=== PATIENT | female | born 1940 | race Caucasian/White ===

== ENCOUNTER → 2017-03-16 | Outpatient (CLI) | payer MEDICARE, OTHER ==
[~2017-03-16] MED LIST: AMLO10TA82 PO; ASP81TEC PO; LOSA100T7 PO; METO100T5 PO; METO10TA3 PO; MULT-608 PO; SIMV80TA3 PO; SODIUM BICARB PO; SPIR25TA3 PO; THYR60TA4 PO
--- NOTE | 2017-03-16 20:03 | Diagnostic Imaging Report ---
Bilateral screening mammogram 2D views with tomosynthesis The current study was also evaluated with a Computer Aided Detection (CAD) system. INDICATION: Screening. No current complaints stated on the questionnaire. COMPARISON: 03/04/2016. FINDINGS: The breasts are composed of scattered fibroglandular densities. Scattered benign-appearing calcifications and vascular calcifications are seen. Allowing for technique and positional differences, no suspicious change is seen. IMPRESSION: No significant change. ACR BI-RADS Category 2: Benign findings. Result letter will be mailed to the patient. Note: At least 10% of breast cancer is not imaged by mammography. Dictated by: Dictated on workstation # [id number]
== END ==
LOC: RAD 09:20
DX: Z12.31 Encounter for screening mammogram for malignant neoplasm of breast (principal)
CPT/HCPCS: 77067

== ENCOUNTER → 2017-10-19 | Outpatient (CLI) | payer MEDICARE, OTHER ==
[~2017-10-19] MED LIST changes: +ALLO100T PO; +AMLO10TA2 PO; +ASPI-999 PO; +CHOL500050 PO; +DEXL60CA PO; +DOXA2TAB2 PO; +HYDR-34 PO; +LOSA100T28 PO; +METO-370 PO; +MULT1TAB69 PO; +ROSU20TA PO; +SODI650T PO; +SUCR1TAB PO; +THYR90TA15 PO
--- NOTE | 2017-10-19 08:39 | Diagnostic Imaging Report ---
PROCEDURE: US Gallbladder. TECHNIQUE: Multiple Real-time grayscale images were obtained over the right upper quadrant in various projections. INDICATION: Abdominal pain. FINDINGS: The liver is normal in size without focal lesions. The common bile duct is not seen. There is no obvious intrahepatic biliary ductal dilatation. There is no cholelithiasis, gallbladder wall thickening, or pericholecystic fluid. The pancreas is not well-seen due to bowel gas. The right kidney is unremarkable apart from two cysts measuring 5.8 and 4.3 cm respectively. There is no ascites. IMPRESSION: Two right renal cysts. Unremarkable gallbladder. The common bile duct was not visualized. Dictated by: Dictated on workstation # [id number]
== END ==
LOC: RAD 07:23
PROVIDERS: ATTEND Surgery
DX: N28.1 Cyst of kidney, acquired (principal)
CPT/HCPCS: 76705

== ENCOUNTER → 2017-11-05 | Outpatient (CLI) | payer MEDICARE, OTHER ==
[~2017-11-05] MED LIST changes: +CATHETER FLUSH 10 ML SYR IV PRN
--- NOTE | 2017-11-05 15:10 | Diagnostic Imaging Report ---
Nuclear medicine hepatobiliary scan. Indication: Abdominal pain. Study was performed following administration of 5.37 mCi of Choletec and 8 ounces of Ensure. The previous nuclear medicine hepatobiliary scan of 02/06/2015 failed to show any sign of acute cholecystitis or for obstruction of the common bile duct. The ejection fraction was 79% (normal greater than 35%). The recent abdominal ultrasound exam of 10/19/2017 failed to show any sign of cholelithiasis or acute cholecystitis as well. On this study there was uptake of the radiotracer by the gallbladder by approximately 35 minutes. This is similar to the prior exam. Normally there is uptake of the radiotracer earlier than 30 minutes. The slightly delayed uptake does suggest there may be an element of mild chronic cholecystitis present. There is extension of the radiotracer into the small bowel indicating the common bile duct is not obstructed. The ejection fraction is 65.1% (normal greater than 35%). Impression: 1. The slightly delayed uptake of the radiotracer by the gallbladder does raise the question of mild chronic cholecystitis. 2. There is no evidence for obstruction of the common bile duct. 3.. The ejection fraction is within normal limits but has decreased since the prior exam. Dictated by: Dictated on workstation # [id number]
== END ==
LOC: RAD 09:19
PROVIDERS: ATTEND Surgery
DX: R10.11 Right upper quadrant pain (principal)
CPT/HCPCS: 78227

== ENCOUNTER 2017-11-16 05:40 | Outpatient (CLI) | payer MEDICARE, OTHER ==
[~2017-11-16] VITALS: Ht 167.6 cm; Wt 102.5 kg
[~2017-11-16 05:40] MED LIST changes: -ALLO100T PO; -AMLO10TA2 PO; -ASPI-999 PO; -CATHETER FLUSH 10 ML SYR IV PRN; -CHOL500050 PO; -DEXL60CA PO; -DOXA2TAB2 PO; -HYDR-34 PO; -LOSA100T28 PO; -METO-370 PO; -MULT1TAB69 PO; -ROSU20TA PO; -SODI650T PO; -SUCR1TAB PO; -THYR90TA15 PO
[2017-11-16] MEDS ORDERED: LOSA100T28 PO (10:29)
[2017-11-16] MEDS ORDERED: SUCR1TAB PO (10:29)
[2017-11-16] MEDS ORDERED: METO-370 PO (10:29)
[2017-11-16] MEDS ORDERED: MULT1TAB69 PO (10:29)
[2017-11-16] MEDS ORDERED: SPIR25TA3 PO (10:29)
[2017-11-16] MEDS ORDERED: ROSU20TA PO (10:29)
[2017-11-16] MEDS ORDERED: DEXL60CA PO (10:29)
[2017-11-16] MEDS ORDERED: CHOL500050 PO (10:29)
[2017-11-16] MEDS ORDERED: ALLO100T PO (10:29)
[2017-11-16] MEDS ORDERED: THYR90TA15 PO (10:29)
[2017-11-16] MEDS ORDERED: METO10TA3 PO (10:29)
[2017-11-16] MEDS ORDERED: AMLO10TA2 PO (10:29)
[2017-11-16] MEDS ORDERED: SODI650T PO (10:29)
[2017-11-16] MEDS ORDERED: ASPI-999 PO (10:29)
[2017-11-16] MEDS ORDERED: DOXA2TAB2 PO (10:29)
[2017-11-19] MEDS ORDERED: HYDR-34 PO (10:15)
== END 2017-11-16 10:35 | disposition home or self-care (01) ==
LOC: PREOP 05:40
PROVIDERS: ATTEND Surgery
DX: Z01.818 Encounter for other preprocedural examination (principal)

== ENCOUNTER 2018-03-11 13:21 | Outpatient (CLI) | payer MEDICARE, OTHER ==
[~2018-03-11] VITALS: Ht 162.6 cm; Wt 96.2 kg
[~2018-03-11 13:21] MED LIST changes: +ALLO100T PO; +AMLO10TA6 PO; +ASPI-999 PO; +CHOL500050 PO; +DEXL60CA PO; +DOXA2TAB2 PO; +HYDR-34 PO; +LOSA100T8 PO; +METO-370 PO; +MULT1TAB69 PO; +ROSU20TA PO; +SODI650T PO; +SPIR25TA5 PO; +SUCR1TAB PO; +THYR90TA15 PO
[2018-03-11 13:32] VITALS: BP 161/83
[2018-03-11] MEDS ORDERED: PANT40TA3 PO (13:42)
[2018-03-11 14:50] LABS: BASOPHILS % (AUTO) 1 % (0-10); EOSINOPHILS # (AUTO) 0.2 10^3/uL (0.0-0.3); EOSINOPHILS % (AUTO) 3 % (0-10); HEMATOCRIT 37 % (35-52); HEMOGLOBIN 12.1 G/DL (11.5-16.0); LYMPHOCYTES # (AUTO) 2.4 X 10^3 (1.0-4.0); LYMPHOCYTES % (AUTO) 30 % (12-44); MEAN CORPUSCULAR HEMOGLOBIN 31 PG (25-34); MEAN CORPUSCULAR HGB CONC 33 G/DL (32-36); MEAN CORPUSCULAR VOLUME 95 FL (80-99); MEAN PLATELET VOLUME 11.7 FL (7.4-10.4); MONOCYTES # (AUTO) 0.6 X 10^3 (0.0-1.0); MONOCYTES % (AUTO) 8 % (0-12); NEUTROPHILS # (AUTO) 4.7 X 10^3 (1.8-7.8); NEUTROPHILS % (AUTO) 59 % (42-75); PLATELET COUNT 136 10^3/uL (130-400); RED BLOOD COUNT 3.86 10^6/uL (4.35-5.85); RED CELL DISTRIBUTION WIDTH 13.9 % (10.0-14.5)
[2018-03-11 15:11] LABS: INR 1.1 (0.8-1.4)
[2018-03-11 15:13] LABS: BILIRUBIN,URINE NEGATIVE (NEGATIVE); CLARITY,URINE SLIGHTLY CLOUDY; COLOR,URINE YELLOW; GLUCOSE, URINE (UA) NEGATIVE (NEGATIVE); KETONES,URINE NEGATIVE (NEGATIVE); LEUKOCYTE ESTERASE ,URINE 3+ (NEGATIVE); NITRITE,URINE NEGATIVE (NEGATIVE); PH,URINE 7 (5-9); PROTEIN,URINE 1+ (NEGATIVE); UROBILINOGEN,URINE NORMAL (NORMAL)
[2018-03-11 15:15] LABS: ERYTHROCYTE SEDIMENTATION RATE 16 MM/HR (0-30)
[2018-03-11 15:20] LABS: ALBUMIN 4.1 GM/DL (3.2-4.5); BILIRUBIN,TOTAL 0.6 MG/DL (0.1-1.0); CALCIUM 9.5 MG/DL (8.5-10.1); CREATININE SERUM 1.09 MG/DL (0.60-1.30); POTASSIUM 3.7 MMOL/L (3.6-5.0)
[2018-03-11 15:33] LABS: BACTERIA,URINE FEW /HPF; WBC,URINE 50-100 /HPF
--- NOTE | 2018-03-11 17:23 | Diagnostic Imaging Report ---
EXAMINATION: PA and lateral chest at 03:08 p.m. INDICATION: Preop total knee replacement. FINDINGS: There are no prior studies available for comparison. The heart size is within normal limits. The lungs are clear. There is no evidence for failure, pneumonia, or for pleural effusion to indicate an acute abnormality. The mediastinum is not widened. The osseous structures are intact. Orthopedic fixation plates are seen overlying the posterior aspect of the lower cervical spine on the left. IMPRESSION: There is no evidence for active disease. Dictated by: Dictated on workstation # [id number]
== END 2018-03-11 15:00 | disposition home or self-care (01) ==
LOC: PREOP 13:21
PROVIDERS: ATTEND Orthopaedic Surgery
DX: Z01.810 Encounter for preprocedural cardiovascular examination (principal); Z01.811 Encounter for preprocedural respiratory examination; Z01.812 Encounter for preprocedural laboratory examination; Z11.2 Encounter for screening for other bacterial diseases; M17.11 Unilateral primary osteoarthritis, right knee; R53.83 Other fatigue; R82.90 Unspecified abnormal findings in urine
CPT/HCPCS: 36415; 71046; 80053; 81000; 85025; 85610; 85652; 86850; 86900; 86901; 87081; 87088; 93005

== ENCOUNTER 2018-03-17 07:18 | Inpatient (IN) | payer MEDICARE, OTHER ==
--- NOTE | 2018-03-08 10:47 | HISTORY AND PHYSICAL ---
DATE OF SERVICE: ADMISSION HISTORY AND PHYSICAL DATE OF SURGERY: This will be for inpatient admission on 03/17/2018 for right total knee arthroplasty. HISTORY OF PRESENT ILLNESS: The patient is a 78-year-old female with progressively worsening right knee pain. She underwent treatment with injections without relief. She reports activity limitations because of the knee. Radiographs reveal severe medial and patellofemoral arthritis. Due to functional impairment and failure to improve with conservative measures, the patient has elected to proceed with surgical intervention. REVIEW OF SYSTEMS: No chest pain, no shortness of breath. No dysuria. PAST MEDICAL HISTORY: Hyperlipidemia, hypertension, aortic valve disorder and atherosclerosis. PAST SURGICAL HISTORY: Hysterectomy, nephrectomy, neck surgery, skin cancer excision and cholecystectomy. SOCIAL HISTORY: The patient denies tobacco and alcohol use. FAMILY HISTORY: Significant for hypertension. PRIMARY CARE PROVIDER: Dr. Pearce. MEDICATIONS: Spironolactone, metoprolol, amlodipine, losartan, doxazosin, thyroid, metoclopramide, sodium bicarbonate, Crestor, allopurinol, pantoprazole, sucralfate, Dexilant and adult aspirin. ALLERGIES: No known drug allergies. SOCIAL HISTORY: The patient denies tobacco and alcohol use. PHYSICAL EXAMINATION: GENERAL: The patient is well developed, well nourished, in no acute distress. HEENT: Normocephalic and atraumatic. Pupils are equal, round and reactive to light. Oropharynx is clear. NECK: Supple, no lymphadenopathy. LUNGS: Clear to auscultation bilaterally. HEART: Regular rate and rhythm. ABDOMEN: Soft, nontender and nondistended. EXTREMITIES: The right knee demonstrates moderate effusion. She is tender along her medial and lateral joint line. She has pain with Elissa's. She has marked patellofemoral crepitus. Range of motion is 0/2/125. There is no varus valgus laxity. Negative anterior and posterior drawer. The patient ambulates with an antalgic gait. IMPRESSION: Right knee severe primary osteoarthritis. PLAN: Right total knee arthroplasty. The risks, benefits, options, ramifications and recovery were discussed at length with the patient. She understands and wishes to proceed. She will require inpatient admission due to comorbidities and pain management and gait disturbance. Job ID: [id number] DocumentID: [id number] Dictated Date: 03/08/2018 10:14:55 Hand Molder And Caster Date: 03/08/2018 10:46:51 Dictated By: NADIA CARO MD
[~2018-03-17] VITALS: Ht 162.6 cm; Wt 96.2 kg
[~2018-03-17 07:18] MED LIST changes: +PANT40TA3 PO
--- NOTE | 2018-03-17 07:29 | Progress Note-Pre Operative ---
Pre-Operative Progress Note H&P Reviewed The H&P was reviewed, patient examined and no changes noted. Date Seen by Provider: Mar 17, 2018 Time Seen by Provider: 07:28 Date H&P Reviewed: Mar 17, 2018 Time H&P Reviewed: 07:28 Pre-Operative Diagnosis: right knee primary osteoarthritis NADIA CARO MD Mar 17, 2018 07:29
[2018-03-17 07:30] VITALS: BP 159/69
[2018-03-17] MEDS ORDERED: ACETAMINOPHEN 325 MG TABLET PO PRN (07:30)
[2018-03-17] MEDS ORDERED: ONDANSETRON 4 MG/2 ML (SDV) Z0FRAN IVP PRN ×2 (07:30→12:00)
[2018-03-17] MEDS ORDERED: morphine PCA 100 MG/100 ML BAG IV PRN (07:30)
[2018-03-17] MEDS ORDERED: diphenhydrAMINE 50 MG/ML INJ (BENADRYL) IVP PRN (07:30)
--- NOTE | 2018-03-17 07:30 | Progress Note-Post Operative ---
Post-Operative Progess Note Surgeon (s)/Bead Wire Insulator (s) Surgeon NADIA CARO MD Bead Wire Insulator: Ld Roach Pre-Operative Diagnosis right knee primary osteoarthritis Post-Operative Diagnosis right knee primary osteoarthritis Procedure & Operative Findings Date of Procedure 03/17/18 Procedure Performed/Findings right total knee arthroplasty Anesthesia Type GETA Estimated Blood Loss Estimated blood loss (mL): minimal Specimens/Packing Specimens Removed none Packing: none NADIA CARO MD Mar 17, 2018 07:30
[2018-03-17] MEDS ORDERED: OXYC1TAB87 PO (07:31)
--- NOTE | 2018-03-17 07:32 | D/C HH Face to Face Order ---
D/C Face to Face Orders Instructions for Patient Via [facility], Patient Instructions/FollowUp: three weeks Physician to follow Patient: three weeks Discharge Diet for Home: Regular Diet Patient Data-Allergies,Ht & Wt Patient Allergies: Coded Allergies: adhesive tape (Verified Allergy, Unknown, 03/11/18) Height (Feet): 5 Height (Inches): 4.00 Weight (Pounds): 212 Weight (Ounces): 0.0 Home Health Need/Face to Face Date of Face to Face: Mar 17, 2018 Clinical Findings: Instability, Muscle weakness, Pain with ambulation, Unsteady gait I have seen Pt [id number]: Yes Discharged To: Home Diagnosis/Conditions: right total knee arhthroplasty Patient is Homebound due to: Maulik fall risk due to instabilty, Muscle weakness , Pain w/ambulation Homebound Status Due to the above stated illness, injury or surgical procedure (medical condition or diagnosis) and associated clinical findings, the patient is homebound because of his/her inability to leave home except with aid of a supportive device and/or person AND leaving the home requires a considerable and taxing effort or is medically contraindicated. Pt req the following assistanc: Walker Home Health Nursing Orders Home Health Services Order: Physical Therapy-Evaluate & Treat Therapy Orders Therapy Orders: Physical Therapy, PT to assess for OT Therapy Specific Orders: Eval assistive deivces, Teach enviro modifications/ safety, Gait training, Increase strength/endurance, Provider maintenance therapy , Restore ROM DC right knee malcom and apply steri strips 03/31/18 Certify Stmt I certify that this patient is under my care and that I, a nurse practitioner or a physician; a therapy assistant working with me, had a face to face encounter that - meets the physician face to face encounter requirements with this patient as dated. NADIA CARO MD Mar 17, 2018 07:32
[2018-03-17] MEDS: LACTATED RINGERS 1,000 ML IV PRN ×2 (08:33→12:10)
[2018-03-17] MEDS ORDERED: CEFUROXIME INJECTION 1,500 MG in NS (IVPB) 50 ML IV ONE (08:45)
[2018-03-17] MEDS ORDERED: INTRA-ARTICULAR IU ONE ×5 (08:45)
[2018-03-17] MEDS ORDERED: CEFUROXIME 1.5 GM/NS 50 ML IVPB IV ONE ×2 (08:45)
[2018-03-17] MEDS ORDERED: LIDOCAINE PF 2% 5 ML (XYLOCAINE) VIAL ONE (09:01)
[2018-03-17] MEDS ORDERED: fentaNYL INJECTION 100 MCG/2 ML AMP ONE ×2 (09:01→10:04)
[2018-03-17] MEDS ORDERED: BUPIVACAINE 0.5% 30 ML (SENSORCAINE) VIAL ONE (09:01)
[2018-03-17] MEDS ORDERED: MIDAZOLAM 2 MG/2 ML (VERSED) VIAL ONE (09:01)
[2018-03-17] MEDS ORDERED: TRANEXAMIC ACID 100 MG/ML 10 ML INJECTION IV ONE (09:47)
[2018-03-17] MEDS ORDERED: proPOfol 200 MG/20 ML (DIPRIVAN) VIAL IV ONE (09:49)
[2018-03-17] MEDS ORDERED: SEVOFLURANE (ULTANE) 15 ML INHAL SOLN ONE (10:55)
--- NOTE | 2018-03-17 11:34 | Diagnostic Imaging Report ---
INDICATION: Postoperative. TECHNIQUE: 2 post operative radiographs of the right knee 11:16 AM CORRELATION STUDY: None FINDINGS: There are postsurgical changes of a total knee arthroplasty. Alignment is anatomic. Installed hardware appearing unremarkable. Overlying soft tissue gas collections and skin malcom are present. IMPRESSION: Postsurgical changes of a right total knee replacement. Dictated by: Dictated on workstation # [id number]
[2018-03-17] MEDS ORDERED: morphine INJ 10 MG/ML 1ML (SYR OR VIAL) ONE (11:41)
--- NOTE | 2018-03-17 11:44 | Progress Note-Standard ---
Standard Progress Note Progress Notes/Assess & Plan Date Seen by a Provider: Mar 17, 2018 Time Seen by a Provider: 11:43 Progress/Assessment & Plan post op check No complaints radiographs--HW well positioned without fracture RLE--2 plus DP pulse with brisk cap refill. sensation intact throughout. Intact DF and PF of toes and ankle s/p RTKA mobilize as able NADIA CARO MD Mar 17, 2018 11:44
[2018-03-17] MEDS ORDERED: morphine INJ 10 MG/ML 1ML (SYR OR VIAL) IVP ONE (12:00)
[2018-03-17 12:20] VITALS: BP 116/69
[2018-03-17] MEDS ORDERED: morphine PCA 100 MG/100 ML BAG IV ONE (13:20)
[2018-03-17] MEDS: SENNA W/DOCUSATE (SENOKOT S) TABLET PO SCH ×2 (14:00→20:54)
[2018-03-17] MEDS: oxyCODONE/APAP 5/325MG (PERCOCET 5) TABLET PO PRN (14:00)
[2018-03-17] MEDS: NS IV 1000 ML 1,000 ML IV SCH (15:23)
[2018-03-17] MEDS: CEFUROXIME INJECTION 750 MG in NS (IVPB) 50 ML IV SCH ×2 (15:23→22:56)
--- NOTE | 2018-03-17 15:33 | OPERATIVE REPORT ---
DATE OF SERVICE: 03/17/2018 PREOPERATIVE DIAGNOSIS: Right knee primary osteoarthritis. POSTOPERATIVE DIAGNOSIS: Right knee primary osteoarthritis. PROCEDURE: Right total knee arthroplasty. SURGEON: Derek Caro MD. PIGMENT PUMPER: JEAN PIERRE Elliott, who assisted throughout the procedure and closed the incision. ANESTHESIA: General endotracheal by Rama Márquez CRNA. TOURNIQUET TIME: Approximately 55 minutes at 300 mmHg. ESTIMATED BLOOD LOSS: Minimal. DRAINS: None. COMPLICATIONS: None. POSTOPERATIVE PLAN: Routine total knee arthroplasty protocol. The patient was transported to the recovery room awake and in stable condition. MATERIALS: MicroPort cemented size 5 femur, cemented size 5 tibia with 10 mm insert and a cemented size 32 patellar button. STATEMENT OF MEDICAL NECESSITY: The patient is a 78-year-old female with longstanding right knee pain, swelling and activity limitations. She had undergone treatment with injections, anti-inflammatories and activity modifications without relief. Due to functional impairment, the patient elected to proceed with surgical intervention. Radiographs revealed severe medial and patellofemoral arthrosis with complete loss of joint space. DESCRIPTION OF PROCEDURE: After risks and benefits of procedure were discussed and questions were answered and informed consent was signed and placed on the chart, the operative site was confirmed in the preoperative holding area initialed by the surgeon. The patient was then transported to the operating room and after adequate levels of general endotracheal anesthetic were obtained, a timeout was called confirming the operative site. The right lower extremity was prepped and draped in the usual sterile fashion with the leg elevated and the knee flexed. Tourniquet was inflated to 300 mmHg. A standard anterior approach was utilized. Hemostasis was obtained with cautery. A medial parapatellar arthrotomy was performed leaving 1 cm cuff on the patella for later reattachment. A portion of the fat pad was resected. A subperiosteal release was performed on the proximal medial tibia being careful to stay on the bony surface. The ACL was resected. The intramedullary guide was passed into the distal femur and the femoral cutting block was placed. The cut was made and the femur was sized to a size 5. The 5 cutting block was placed parallel to the epicondylar axis and cuts were made from posterior to anterior. Subperiosteal release was then carefully performed on the posterior distal femur, being careful to stay on the bony surface. The intramedullary guide was then passed into the tibia. The cutting block was placed. The drop selwyn transected the intermalleolar axis and the cut was made. The five baseplate was placed and again the drop selwyn transected the intramedullary axis and this was prepared with the drill and keel punch. The trials were inserted. The femoral trochlear cut was made. The patella was prepared using the freehand technique by resecting 10 mm off the undersurface. Peg holes were drilled and the trial was inserted. The patella tracked well. Full extension was easily obtained, 120 degrees of flexion with gravity was easily obtained. There was no anterior/posterior or medial/lateral laxity in flexion or extension. The trials were removed. The joint was copiously irrigated. The bone ends were irrigated and dried. The periarticular block was placed in the posterior capsule, medial and lateral retinaculum and extensor mechanism as well as the subcutaneous tissues. The tibia was irrigated and dried and the tibial baseplate was cemented into position. Excess cement was removed. The superior surface was irrigated and dried and the polyethylene insert was placed. Distal femur was irrigated and dried and the femoral prosthesis was cemented into position. Excess cement was removed. The undersurface of the patella was irrigated and dried and the patellar button was cemented into position. Once the cement had cured, the knee was taken through range of motion, full extension easily obtained, 120 degrees of flexion with gravity was easily obtained. There was no anterior/posterior or medial/lateral laxity in flexion or extension and the patella tracked well. The joint was further irrigated with pulse lavage. Arthrotomy was closed with #2 Tevdek in dybcbu-dr-odtyh interrupted fashion. Subcutaneous tissues were irrigated with pulse lavage. A 0 Vicryl was used for deep subcutaneous tissues, 2-0 Vicryl for the superficial subcutaneous tissue, malcom used on the skin. A soft dressing was applied and the patient was transported to the recovery room awake and in stable condition. The tourniquet was deflated after dressing application. Job ID: [id number] DocumentID: [id number] Dictated Date: 03/17/2018 11:11:38 Internal Communications Writer Date: 03/17/2018 15:32:52 Dictated By: DEREK CARO MD
[2018-03-17 16:41] VITALS: BP 137/63
--- NOTE | 2018-03-17 16:41 | Physical Therapy Evaluation ---
PT Evaluation-General Medical Diagnosis Admission Date Mar 17, 2018 at 07:18 Medical Diagnosis: right total knee arthroplasty Onset Date: Mar 16, 2018 Therapy Diagnosis Therapy Diagnosis: impaired gait Height/Weight Height (Feet): 5 Height (Inches): 4.00 Weight (Pounds): 212 Weight (Ounces): 0.0 Precautions Precautions/Isolations: Fall Prevention, Standard Precautions Weight Bear Status Right Lower Extremity: Right Full Weight Bearing Left Lower Extremity: Left Weight Bearing/Tolerated Referral Reason for Referral: Evaluation/Treatment Medical History Pertinent Medical History: HTN, OA Additional Medical History neck surgery Current History Pt has a history of progressive right knee DJD. Conservative treatments did not provide relieve. Due to progressive loss of functional mobility patient elected to undergo a total knee arthroplasty. Reviewed History: Yes Social History Home: Single Level Current Living Status: Spouse Entry Into Home: Stairs Without Railing PT Steps Into Home: 1 Prior/Core FIM Prior Level of Function Functional [place] Measure 0=Not Assessed/NA 4=Minimal Assistance 1=Total Assistance 5=Supervision or Setup 2=Maximal Assistance 6=Modified [place] 3=Moderate Assistance 7=Complete IndependenceIRFPAI Quality Coding Scale 6 Independent with activity with or without an assistive device 5 Patient requires set up or clean up by helper. Patient completes activity by themselves 4 Supervision or touching assist (CGA). [place] provide cues , steadying assist 3 The helper provides less than half the effort to complete the activity 2 The helper provides more than half the effort to complete the activity 1 Dependent. The helper does all the effort to complete an activity 7 Patient refused to complete or attempt activity 9 The patient did not perform the activity before the current illness or injury 88 Not attempted due to Medical conditions or safety concerns Bed Mobility: 7 Transfers (B,C,W/C) (FIM): 7 Gait: 7 Stairs: 7 PT Evaluation-Current Subjective Pt reports she is ready to get moving and get back home. She was apprehensive about her recovery due to what she was told by friends but indicates so far the procedure has been much better than expected. Objective Patient Orientation: Normal For Age Attachments: IV ROM/Strength ROM Lower Extremities left knee 0-120, right knee 5-95 degrees Strength Lower Extremities left gross 5/5, right gross 4/5 Sensory Vision: Functional Hearing: Functional Sensation Right Lower Extremit: Intact Sensation Left Lower Extremity: Intact Transfers Functional [place] Measure 0=Not Assessed/NA 4=Minimal Assistance 1=Total Assistance 5=Supervision or Setup 2=Maximal Assistance 6=Modified [place] 3=Moderate Assistance 7=Complete [place] Transfers (B, C, W/C) (FIM): 5 Scootin Rollin Supine to/from Sit: 5 Sit to/from Stand: 5 supervision for stand pivot transfer with verbal cues for walker use Gait Mode of Locomotion: Walk Anticipated Mode of Locomotion: Walk Gait (FIM): 4 Distance (FIM): 3=150 ft Distance: 200 Gait Level of Assist: 4 Gait Persons Needed: 1 Gait Assistive Device: FWW Comments/Gait Description ambulates with appropriate swing through gait. Instructions for walker safety Stairs If not tested on admit;explain not tested at time of eval due to safety Balance Sitting Static: Good Sitting Dynamic: Good Standing Static: Good Standing Dynamic: Good Assessment/Needs Pt has decreased ROM and strength in the right LE. She has limitations with transfers and gait primarily with safety and balance. She will benefit from PT to restore motion and return to normal functional activities in the home and community. Rehab Potential: Good Post Rehab Potential-Barriers: none PT Clinical Research Associate Goals Clinical Research Associate Goals PT Clinical Research Associate Goals Time Frame: Mar 19, 2018 Transfers (B,C,W/C) (FIM): 6 Gait (FIM): 5 Gait distance (FIM): 3=150 ft Distance: 250 Gait Level of Assist: 5 Gait Assistive Device: FWW Stairs (FIM): 5 # of Steps: 3 Stairs Level Of Assist: 6 PT Plan Problem List Problem List: Balance, Gait, Transfer, ROM Treatment/Plan Treatment Plan: Continue Plan of Care Treatment Plan: Functional Strength, Gait, Safety, Therapeutic Exercise Treatment Duration: Mar 19, 2018 Frequency: 11 times per week Estimated Hrs Per Day: .25 hour per day Patient and/or Family Agrees t: Yes Safety Risks/Education Patient Education: Gait Training, Transfer Techniques, Steps, Issued Written HEP Teaching Recipient: Patient Teaching Methods: Demonstration, Discussion Discharge Recommendations Barriers to Progress none Target Placement home Time/GCodes Time In: 1530 Time Out: 1550 Total Billed Treatment Time: 20 Total Billed Treatment visit, eval low complexity 20 min G Codes Necessary: No HORTENSIA ESTRELLA PT Mar 17, 2018 16:41
[2018-03-17 20:28] VITALS: BP 145/67
[2018-03-17 23:53] VITALS: BP 157/72
[2018-03-18 04:30] VITALS: BP 122/75
[2018-03-18] MEDS: MULTIVIT W/MINERALS TAB (THERAGRAN M) PO SCH (06:06)
[2018-03-18] MEDS: oxyCODONE/APAP 5/325MG (PERCOCET 5) TABLET PO PRN ×6 (06:06→23:46)
--- NOTE | 2018-03-18 07:53 | Progress Note-Standard ---
Standard Progress Note Progress Notes/Assess & Plan Date Seen by a Provider: Mar 18, 2018 Time Seen by a Provider: 07:52 Progress/Assessment & Plan post op check No complaints radiographs--HW well positioned without fracture RLE--2 plus DP pulse with brisk cap refill. sensation intact throughout. Intact DF and PF of toes and ankle s/p RTKA mobilize as able Final Diagnosis no complaints Vital Signs Date Time Temp Pulse Resp B/P (MAP) Pulse Ox O2 Delivery O2 Flow Rate FiO2 03/18/18 06:18 18 03/18/18 04:30 99.2 77 18 122/75 (91) 93 Room Air 03/17/18 23:53 98.6 68 18 157/72 (100) 94 Room Air 03/17/18 20:28 97.9 61 20 145/67 (93) 91 Room Air 03/17/18 16:41 97.3 74 20 137/63 (87) 92 Room Air 03/17/18 12:20 97.0 76 20 116/69 (85) 94 Room Air I & O 03/18/18 07:00 Intake Total 1250 ml Output Total 50 ml Balance 1200 ml Laboratory Tests Test 03/18/18 05:50 Range/Units Hemoglobin 11.0 L 11.5-16.0 G/DL Hematocrit 34 L 35-52 % RLE--dressing intact. No calf tenderness. Neg Dylon's. NVI distally s/p RTKA doing well PT/OT NADIA CARO MD Mar 18, 2018 07:53
[2018-03-18 08:00] VITALS: BP 107/62
[2018-03-18] MEDS: NS IV 1000 ML 1,000 ML IV SCH ×3 (08:27→20:38)
[2018-03-18] MEDS: ASPIRIN E.C. 81 MG (ECOTRIN) TAB PO SCH (08:27)
[2018-03-18] MEDS: SENNA W/DOCUSATE (SENOKOT S) TABLET PO SCH ×2 (08:28→20:38)
[2018-03-18] MEDS: ENOXAPARIN 30 MG/0.3 ML (LOVENOX) SYR SC SCH ×2 (08:28→20:38)
--- NOTE | 2018-03-18 09:04 | Physical Therapy Daily Note ---
PT Daily Note-Current Subjective Patient sitting EOB and agrees to PT. Reports increase in right knee pain due to block is wearing off. Pain Numeric Pain Scale: 5-Moderate Pain Location: Right Location Body Site: Knee Pain Description: Acute Mental Status Patient Orientation: Normal For Age Attachments: IV Transfers Functional [place] Measure 0=Not Assessed/NA 4=Minimal Assistance 1=Total Assistance 5=Supervision or Setup 2=Maximal Assistance 6=Modified [place] 3=Moderate Assistance 7=Complete IndependenceIRFPAI Quality Coding Scale 6 Independent with activity with or without an assistive device 5 Patient requires set up or clean up by helper. Patient completes activity by themselves 4 Supervision or touching assist (CGA). [place] provide cues , steadying assist 3 The helper provides less than half the effort to complete the activity 2 The helper provides more than half the effort to complete the activity 1 Dependent. The helper does all the effort to complete an activity 7 Patient refused to complete or attempt activity 9 The patient did not perform the activity before the current illness or injury 88 Not attempted due to Medical conditions or safety concerns Transfers (B, C, W/C) (FIM): 5 Scootin Sit to/from Stand: 5 Weight Bearing Right Lower Extremity: Right Full Weight Bearing Left Lower Extremity: Left Weight Bearing/Tolerated Gait Training Gait (FIM): 5 Distance (FIM): 3=150 ft Distance: 250' Gait Level of Assist: 5 Gait Assistive Device: FWW reciprocal pattern, antalgic Exercises Seated Therapy Exercises: Ankle pumps, Long arc quads, Hip flexion Seated Reps: 20 Assessment Patient progressing with treatment plan. Patient is motivated with progress. Increase activity as tolerated. PT Senior Care Goals Holter Technician Goals PT Senior Care Goals Time Frame: Mar 19, 2018 Transfers (B,C,W/C) (FIM): 6 Gait (FIM): 5 Gait distance (FIM): 3=150 ft Distance: 250 Gait Level of Assist: 5 Gait Assistive Device: FWW Stairs (FIM): 5 # of Steps: 3 Stairs Level Of Assist: 6 PT Plan Treatment/Plan Treatment Plan: Continue Plan of Care Treatment Plan: Functional Strength, Gait, Safety, Therapeutic Exercise Treatment Duration: Mar 19, 2018 Frequency: 11 times per week Estimated Hrs Per Day: .25 hour per day Patient and/or Family Agrees t: Yes Time/GCodes Time In: 836 Time Out: 859 Total Billed Treatment Time: 23 Total Billed Treatment 1 visit EX 9 min GT 14 min IBRAHIMA MOTT PT Mar 18, 2018 09:04
[2018-03-18 12:00] VITALS: BP 123/78
--- NOTE | 2018-03-18 13:52 | Occupational Therapy Eval ---
OT Evaluation-General/PLF Medical Diagnosis Admission Date Mar 17, 2018 at 07:18 Medical Diagnosis: right total knee arthroplasty Onset Date: Mar 16, 2018 Therapy Diagnosis Therapy Diagnosis: Weakness Height/Weight Height (Feet): 5 Height (Inches): 4.00 Weight (Pounds): 212 Weight (Ounces): 0.0 Precautions Precautions/Isolations: Fall Prevention, Standard Precautions Safety Interventions: None Weight Bear Status Weight Bearing Restriction: Weight Bearing/Tolerated Referral Physician: Dr. Gutierrez Referral Reason: Activity Tolerance Medical History Pertinent Medical History: HTN, OA Additional Medical History Hyperlipidemia, Aortic valve disorder, hysterectomy, neck surgery Current History Pt. had elective knee surgery Reviewed History: Yes Social History Home: Single Level Current Living Status: Spouse Entry Into Home: Stairs Without Railing Steps Into Home: 1 ADL-Prior Level of Function Functional [place] Measure 0=Not Assessed/NA 4=Minimal Assistance 1=Total Assistance 5=Supervision or Setup 2=Maximal Assistance 6=Modified [place] 3=Moderate Assistance 7=Complete [place] ADL PLOF Comments Pt. states that she was independent with all basic ADL skills. Self Care Self Care: (Code the patient's need for assistance with bathing, dressing, using the toilet, or eating prior to the current illness, exacerbation, or injury.) Functional Cognition Functional Cognition: (Code the patient's need for assistance with planning regular tasks, such as shopping or remembering to take medicaiton prior to the current illness, exacerbation, or injury.) DME/Equipment: Tub/Shower DME/Equipment Comments Pt. has walker and cane. Pt. lives in [place] with spouse. States that spouse is in good health. OT Current Status Subjective Pt. reports 5/10 pain in right knee. Pt. has pain pump. Appearance Pt. up in chair. Alert and oriented and smiling. Mental Status/Objective Patient Orientation: Person, Place, Time, Situation Current Glasses/Contacts: Yes Upper Extremity ROM WFL Upper Extremity Strength WFL ADL-Treatment Functional [place] Measure 0=Not Assessed/NA 4=Minimal Assistance 1=Total Assistance 5=Supervision or Setup 2=Maximal Assistance 6=Modified [place] 3=Moderate Assistance 7=Complete IndependenceIRFPAI Quality Coding Scale 6 Independent with activity with or without an assistive device 5 Patient requires set up or clean up by helper. Patient completes activity by themselves 4 Supervision or touching assist (CGA). [place] provide cues , steadying assist 3 The helper provides less than half the effort to complete the activity 2 The helper provides more than half the effort to complete the activity 1 Dependent. The helper does all the effort to complete an activity 7 Patient refused to complete or attempt activity 9 The patient did not perform the activity before the current illness or injury 88 Not attempted due to Medical conditions or safety concerns Transfers (B, C, W/C) (FIM): 5 (SBA with walker for sit-stand.) Other Treatments Pt. is up in chair. Agrees to work with OT. Declines bathing or dressing at this time. OT educates pt. on adaptive equipment, but pt. states that her spouse will assist her until she is able to do on her own. Pt. demonstrates ability to stand out of chair with SBA, but declines ambulating with OT at this time. Unable to bend over to doff socks but states that she isn't concerned over this. Pt. is educated about toileting devices if she should need them due to pain or swelling in knee, causing reaching difficulty. Pt. verbalizes understanding. All needs met in room. Education OT Patient Education: Correct positioning, Modified ADL techniques, Progress toward Goal/Update tx plan, Purpose of tx/functional activities, Reviewed precautions, Rehab process, Transfer techniques Teaching Recipient: Patient Teaching Methods: Demonstration, Discussion Response to Teaching: Verbalize Understanding, Return Demonstration OT Short Term Goals Short Term Goals 1=Demonstrate adherence to instructed precautions during ADL tasks. 2=Patient will verbalize/demonstrate understanding of assistive devices/ modifications for ADL. 3=Patient will improve strength/tolerance for activity to enable patient to perform ADL's. OT Usp Goals Experience Planning Strategist Goals Time Frame: Mar 18, 2018 Pt. has verbalized understanding of possible needed adaptive equipment to make ADL tasks easier. Pt. states that spouse will assist as needed. No further OT needed. Additional Goals: 2-Verbalize Understanding 1=Demonstrate adherence to instructed precautions during ADL tasks. 2=Patient will verbalize/demonstrate understanding of assistive devices/ modifications for ADL. 3=Patient will improve strength/tolerance for activity to enable patient to perform ADL's. OT Education/Plan Discharge Recommendations Plan/Recommendations: Discontinue OT Therapy D/C Recommendations: Home w/ Family Support Target Placement Home with spouse support for ADL skills per pt. Treatment Plan/Plan of Care Treatment,Training & Education: Yes Patient would benefit from OT for education, treatment and training to promote independence in ADL's, mobility, safety and/or upper extremity function for ADL' s. Treatment Duration: Mar 18, 2018 Frequency: 1 time per week Estimated Hrs Per Day: .25 hour per day Agreement: Yes Rehab Potential: Good Time/GCodes Start Time: 09:35 Stop Time: 09:50 Total Time Billed (hr/min): 15 Billed Treatment Time 1, EVL Discharge from services DUGLAS CAMPOS OT Mar 18, 2018 13:52
--- NOTE | 2018-03-18 13:54 | Physical Therapy Daily Note ---
PT Daily Note-Current Subjective Pt was up in chair for lunch when PT arrived. Pt stated she felt good following last treatment and agreed to another session of therapy. Mental Status Attachments: IV Transfers Functional [place] Measure 0=Not Assessed/NA 4=Minimal Assistance 1=Total Assistance 5=Supervision or Setup 2=Maximal Assistance 6=Modified [place] 3=Moderate Assistance 7=Complete IndependenceIRFPAI Quality Coding Scale 6 Independent with activity with or without an assistive device 5 Patient requires set up or clean up by helper. Patient completes activity by themselves 4 Supervision or touching assist (CGA). [place] provide cues , steadying assist 3 The helper provides less than half the effort to complete the activity 2 The helper provides more than half the effort to complete the activity 1 Dependent. The helper does all the effort to complete an activity 7 Patient refused to complete or attempt activity 9 The patient did not perform the activity before the current illness or injury 88 Not attempted due to Medical conditions or safety concerns Transfers (B, C, W/C) (FIM): 6 Scootin Sit to/from Stand: 6 Weight Bearing Right Lower Extremity: Right Full Weight Bearing Left Lower Extremity: Left Weight Bearing/Tolerated Gait Training Gait (FIM): 6 Distance: 100' x 2 Gait Level of Assist: 6 Gait Assistive Device: FWW Exercises Seated Therapy Exercises: Ankle pumps, Long arc quads, Hamstring Curls Seated Reps: 10 Assessment Pt was able to perform all exercises that were requested. Patient did show some signs of fatigue with ambulation when returning to room. Patient was able to ambulate 200' feet with FWW with CGA. PT Long-Term Goals Housekeeping Cleaner Goals PT Long-Term Goals Time Frame: Mar 19, 2018 Transfers (B,C,W/C) (FIM): 6 Gait (FIM): 5 Gait distance (FIM): 3=150 ft Distance: 250 Gait Level of Assist: 5 Gait Assistive Device: FWW Stairs (FIM): 5 # of Steps: 3 Stairs Level Of Assist: 6 PT Plan Treatment/Plan Treatment Plan: Continue Plan of Care Treatment Plan: Functional Strength, Gait, Safety, Therapeutic Exercise Treatment Duration: Mar 19, 2018 Frequency: 11 times per week Estimated Hrs Per Day: .5 hour per day Patient and/or Family Agrees t: Yes Time/GCodes Time In: 1235 Time Out: 1254 Total Billed Treatment Time: 19 Total Billed Treatment 1 visit FA 19 mins IBRAHIMA MOTT PT Mar 18, 2018 13:54
[2018-03-18 16:00] VITALS: BP 167/76
--- NOTE | 2018-03-18 18:38 | Anesthesia-General Post-Op ---
General Patient Condition Mental Status/LOC: Same as Preop Cardiovascular: Satisfactory Nausea/Vomiting: Absent Respiratory: Satisfactory Pain: Controlled Complications: Absent Post Op Complications Complications None Follow Up Care/Instructions Patient Instructions None needed. Anesthesia/Patient Condition Patient Condition Patient was seen this morning and she was doing well, no complaints, stable vital signs, no apparent adverse anesthesia problems. LAVERN SERRATO DO Mar 18, 2018 18:37
[2018-03-18 20:00] VITALS: BP 176/74
[2018-03-19 00:01] VITALS: BP 142/77
[2018-03-19 04:01] VITALS: BP 137/73
[2018-03-19] MEDS: oxyCODONE/APAP 5/325MG (PERCOCET 5) TABLET PO PRN ×2 (04:38→10:38)
[2018-03-19 05:29] LABS: HEMOGLOBIN 10.2 G/DL (11.5-16.0)
[2018-03-19] MEDS: MULTIVIT W/MINERALS TAB (THERAGRAN M) PO SCH (05:59)
--- NOTE | 2018-03-19 07:11 | Progress Note-Standard ---
Standard Progress Note Progress Notes/Assess & Plan Date Seen by a Provider: Mar 19, 2018 Time Seen by a Provider: 07:10 Progress/Assessment & Plan post op check No complaints radiographs--HW well positioned without fracture RLE--2 plus DP pulse with brisk cap refill. sensation intact throughout. Intact DF and PF of toes and ankle s/p RTKA mobilize as able Final Diagnosis no complaints Vital Signs Date Time Temp Pulse Resp B/P (MAP) Pulse Ox O2 Delivery O2 Flow Rate FiO2 03/19/18 00:01 98.6 90 18 142/77 (98) 93 Room Air 03/18/18 20:00 97.8 81 20 176/74 (108) 93 Room Air 03/18/18 18:00 18 03/18/18 16:00 98.6 83 20 167/76 (106) 93 Room Air 03/18/18 12:00 98.0 78 20 123/78 (93) 97 Room Air 03/18/18 08:00 97.3 78 20 107/62 (77) 89 Room Air I & O 03/19/18 07:00 Intake Total 1510 ml Output Total 500 ml Balance 1010 ml Laboratory Tests Test 03/19/18 05:20 Range/Units Hemoglobin 10.2 L 11.5-16.0 G/DL Hematocrit 30 L 35-52 % RLE--no calf tenderness. Neg Dylon's. incision clean and dry s/p RTKA doing well continue PT/OT DC likely tomorrow NADIA CARO MD Mar 19, 2018 07:11
[2018-03-19] MEDS ORDERED: morphine INJ 4 MG/ML 1 ML (VIAL/SYRINGE) IVP PRN (07:15)
--- NOTE | 2018-03-19 07:38 | DISCHARGE SUMMARY ---
DATE OF SERVICE: DIAGNOSES: 1. Right knee primary osteoarthritis. 2. Hyperlipidemia. 3. Hypertension. 4. Aortic valve disorder. 5. Atherosclerosis. PROCEDURE: Right total knee arthroplasty. SUMMARY: The patient is a 78-year-old female who underwent a right total knee arthroplasty on the day of admission. Postoperatively, she did very well. At the time of discharge, her wound was clean and dry. She had no calf tenderness. Negative Homans sign. She had cleared physical therapy. She was tolerating a diet well and tolerating the pain with oral pain medication. CONDITION ON DISCHARGE: Good. DISCHARGE DIET: Regular. FOLLOWUP: Followup is in three weeks. DISCHARGE MEDICATIONS: Home medications, aspirin and Percocet. Job ID: [id number] DocumentID: [id number] Dictated Date: 03/19/2018 07:07:40 Insulation Foreman Date: 03/19/2018 07:37:50 Dictated By: NADIA CARO MD
[2018-03-19 08:00] VITALS: BP 176/77
--- NOTE | 2018-03-19 08:38 | Consultation-Hospitalist ---
INEZ PALMA 03/19/18 0838: HPI History of Present Illness: HPI/Chief Complaint CC: Medical management following right total knee replacement uncomplicated by Dr Gutierrez POD # 2 HPI: This is a 78-year-old white female clinic patient of Dr. Ariza at [facility] who presents after an uncomplicated right total knee replacement by Dr. Gutierrez. I reviewed all of her home medications and restarted all relevant ones. She does report constipation which we will initiate medications to help and overall patient feels satisfied with how she is doing and plans on discharging tomorrow. Source: patient Exam Limitations: no limitations Date Seen 03/19/18 Attending Physician Derek Gutierrez MD PCP Sisi Ariza MD Referring Physician Date of Admission Mar 17, 2018 at 07:18 Home Medications & Allergies Home Medications Reviewed patient Home Medication Reconciliation performed by pharmacy medication reconciliations mosaic technician and/or nursing. Patients Allergies have been reviewed. Allergies Allergies Coded Allergies adhesive tape (Verified Allergy, Unknown, 03/11/18) Past Tjddvul-Ududhh-Dwhstt Hx Past Med/Social Hx: Reviewed Nursing Past Med/Soc Hx, Reviewed and Corrections made Patient Social History Marrital Status: Alcohol Use: Denies Use Recreational Drug Use: No Smoking Status: Never a Smoker Physical Abuse Screen: No Sexual Abuse: No Recent Foreign Travel: No Contact w/other who traveled: No Recent Hopitalizations: No Recent Infectious Disease Expo: No Immunizations Up To Date Tetanus Booster (TDap): Unknown Pediatric: No Date of Pneumonia Vaccine: Feb 22, 2018 Date of Influenza Vaccine: Feb 22, 2018 Seasonal Allergies Seasonal Allergies: No Past Medical History Surgeries: Hysterectomy, Orthopedic Currently Using CPAP: Yes Cardiac: Coronary Artery Disease, High Cholesterol, Hypertension Reproductive: No Sexually Transmitted Disease: No Genitourinary: Renal Failure Gastrointestinal: Gastroesophageal Reflux, Chronic Constipation Musculoskeletal: Arthritis Cancer: Melanoma What Type of Treatment Did You: Surgical Intervention History of Blood Disorders: No Family History Completed stroke G8 SISTER Diabetes mellitus 19 MOTHER G8 BROTHER G8 SISTER Hypertension 19 FATHER 19 MOTHER G8 BROTHER G8 SISTER Myocardial infarction 19 FATHER 19 MOTHER Parkinson's disease G8 BROTHER Respiratory disorder G8 BROTHER (lung cancer) Review of Systems Constitutional: see HPI EENTM: no symptoms reported Respiratory: no symptoms reported Cardiovascular: no symptoms reported Gastrointestinal: constipation Genitourinary: no symptoms reported Musculoskeletal: joint pain Skin: no symptoms reported Psychiatric/Neurological: No Symptoms Reported All Other Systems Reviewed Negative Unless Noted: Yes Physical Exam Physical Exam Vital Signs Vital Signs - First Documented 03/17/18 03/17/18 07:30 12:20 Temp 98.3 Pulse 62 Resp 22 B/P (MAP) 159/69 (99) Pulse Ox 96 O2 Delivery Room Air Capillary Refill : Less Than 3 Seconds Height, Weight, BMI Height: 5'4.00" Weight: 212lbs. 0.0oz. [id number]; 36.4 BMI Method: General Appearance: No Apparent Distress, WD/WN Eyes: Bilateral Eye Normal Inspection, Bilateral Eye PERRL HEENT: PERRL/EOMI, TMs Normal, Normal ENT Inspection, Pharynx Normal Neck: Full Range of Motion, Normal Inspection, Non Tender, Supple, Carotid Bruit Respiratory: Chest Non Tender, Lungs Clear, Normal Breath Sounds, No Accessory Muscle Use, No Respiratory Distress Cardiovascular: Regular Rate, Rhythm, No Edema, No Gallop, No JVD, No Murmur, Normal Peripheral Pulses Gastrointestinal: Normal Bowel Sounds, No Organomegaly, No Pulsatile Mass, Non Tender, Soft Back: Normal Inspection, No CVA Tenderness, No Vertebral Tenderness Extremity: Normal Capillary Refill, Normal Inspection, Normal Range of Motion ( except right knee), Non Tender, No Calf Tenderness, No Pedal Edema Neurologic/Psychiatric: Alert, Oriented x3, No Motor/Sensory Deficits, Normal Mood/Affect Skin: Normal Color, Warm/Dry Lymphatic: No Adenopathy Results Results/Procedures Labs Laboratory Tests 03/18/18 05:50 03/19/18 05:20 Patient resulted labs reviewed. Assessment/Plan Assessment and Plan Assess & Plan/Chief Complaint Assessment: Right knee replacement POD # 2 HTN RTA Obesity Plan: Pain management BM treatment Diagnosis/Problems Diagnosis/Problems (1) Hypertension Status: Chronic Qualifiers: Hypertension type: essential hypertension Qualified Codes: I10 - Essential (primary) hypertension (2) Renal insufficiency Status: Chronic (3) Osteoarthritis of right knee Status: Chronic Qualifiers: Osteoarthritis type: primary Qualified Codes: M17.11 - Unilateral primary osteoarthritis, right knee (4) Gout Status: Chronic Qualifiers: Gout site: unspecified site Gout etiology: unspecified cause Chronicity: unspecified Qualified Codes: M10.9 - Gout, unspecified (5) Renal tubular acidosis Status: Chronic CHELSEY HUDSON MEDICAL STUDENT 03/19/18 1150: HPI History of Present Illness: HPI/Chief Complaint s/p RTKA PCP: Sisi ibarra [place] [employer] Laborer: Joseph Feeling well Has not had a BM yet Past Vdfhbxy-Ikaayp-Recndt Hx Family History Completed stroke G8 SISTER Diabetes mellitus 19 MOTHER G8 BROTHER G8 SISTER Hypertension 19 FATHER 19 MOTHER G8 BROTHER G8 SISTER Myocardial infarction 19 FATHER 19 MOTHER Parkinson's disease G8 BROTHER Respiratory disorder G8 BROTHER (lung cancer) INEZ PALMA DO Mar 19, 2018 08:38 CHELSEY HUDSON MEDICAL STUDENT Mar 19, 2018 11:50
[2018-03-19 09:10] LABS: BASOPHILS % (AUTO) 0 % (0-10); EOSINOPHILS # (AUTO) 0.1 10^3/uL (0.0-0.3); EOSINOPHILS % (AUTO) 1 % (0-10); HEMATOCRIT 30 % (35-52); LYMPHOCYTES # (AUTO) 1.7 X 10^3 (1.0-4.0); LYMPHOCYTES % (AUTO) 19 % (12-44); MEAN CORPUSCULAR HEMOGLOBIN 32 PG (25-34); MEAN CORPUSCULAR HGB CONC 34 G/DL (32-36); MEAN CORPUSCULAR VOLUME 95 FL (80-99); MEAN PLATELET VOLUME 12.2 FL (7.4-10.4); MONOCYTES # (AUTO) 1.1 X 10^3 (0.0-1.0); MONOCYTES % (AUTO) 13 % (0-12); NEUTROPHILS # (AUTO) 5.8 X 10^3 (1.8-7.8); NEUTROPHILS % (AUTO) 67 % (42-75); PLATELET COUNT 122 10^3/uL (130-400); RED BLOOD COUNT 3.14 10^6/uL (4.35-5.85); RED CELL DISTRIBUTION WIDTH 14.1 % (10.0-14.5); WHITE BLOOD COUNT 8.7 10^3/uL (4.3-11.0)
[2018-03-19 09:20] LABS: ALANINE AMINOTRANSFERASE 37 U/L (0-55); ALBUMIN 3.4 GM/DL (3.2-4.5); ALKALINE PHOSPHATASE 65 U/L (40-136); BILIRUBIN,TOTAL 1.2 MG/DL (0.1-1.0); BUN/CREATININE RATIO 18; CALCIUM 8.7 MG/DL (8.5-10.1); CARBON DIOXIDE 18 MMOL/L (21-32); CHLORIDE 112 MMOL/L (98-107); CREATININE SERUM 0.89 MG/DL (0.60-1.30); GFR ESTIMATED > 60; GLUCOSE 122 MG/DL (70-105); POTASSIUM 3.4 MMOL/L (3.6-5.0); SODIUM 141 MMOL/L (135-145); TOTAL PROTEIN 5.8 GM/DL (6.4-8.2)
[2018-03-19] MEDS: ASPIRIN E.C. 81 MG (ECOTRIN) TAB PO SCH (09:20)
[2018-03-19] MEDS: SENNA W/DOCUSATE (SENOKOT S) TABLET PO SCH ×2 (09:20→21:00)
[2018-03-19] MEDS: ENOXAPARIN 30 MG/0.3 ML (LOVENOX) SYR SC SCH ×2 (09:20→21:01)
[2018-03-19 09:22] LABS: HEMOGLOBIN 10.2 G/DL (11.5-16.0)
[2018-03-19] MEDS: amLODIPine 10 MG (NORVASC) TAB PO SCH (10:25)
[2018-03-19] MEDS: meTOproloL SUCCINATE 50 MG (TOPROL XL) TAB PO SCH (10:25)
--- NOTE | 2018-03-19 11:09 | Physical Therapy Daily Note ---
PT Daily Note-Current Subjective Patient was awake in chair when PT entered. Patient reported she has been getting up and using walker to use restroom. Pain Numeric Pain Scale: 4 Location: Right Location Body Site: Knee Mental Status Patient Orientation: Normal For Age Attachments: Polar Pack Transfers Functional [place] Measure 0=Not Assessed/NA 4=Minimal Assistance 1=Total Assistance 5=Supervision or Setup 2=Maximal Assistance 6=Modified [place] 3=Moderate Assistance 7=Complete IndependenceIRFPAI Quality Coding Scale 6 Independent with activity with or without an assistive device 5 Patient requires set up or clean up by helper. Patient completes activity by themselves 4 Supervision or touching assist (CGA). [place] provide cues , steadying assist 3 The helper provides less than half the effort to complete the activity 2 The helper provides more than half the effort to complete the activity 1 Dependent. The helper does all the effort to complete an activity 7 Patient refused to complete or attempt activity 9 The patient did not perform the activity before the current illness or injury 88 Not attempted due to Medical conditions or safety concerns Transfers (B, C, W/C) (FIM): 6 Sit to/from Stand: 6 Weight Bearing Right Lower Extremity: Right Full Weight Bearing Left Lower Extremity: Left Weight Bearing/Tolerated Gait Training Gait (FIM): 6 Distance (FIM): 3=150 ft Distance: 200' Gait Level of Assist: 6 Gait Assistive Device: FWW Exercises Seated Therapy Exercises: Ankle pumps, Long arc quads, Hamstring Curls Seated Reps: 10 Assessment Pt was able to perform exercises as directed by PT. Pt ambulated 200ft with a FWW. Pt reported she was sore after walking and returned to bed with polar pack. She will continue therapy and progress with functional activities. Plan dismissal to home with home health intervention tomorrow. PT Jinriksha Driver Goals Jinriksha Driver Goals PT Jinriksha Driver Goals Time Frame: Mar 19, 2018 Transfers (B,C,W/C) (FIM): 6 Gait (FIM): 5 Gait distance (FIM): 3=150 ft Distance: 250 Gait Level of Assist: 5 Gait Assistive Device: FWW Stairs (FIM): 5 # of Steps: 3 Stairs Level Of Assist: 6 PT Plan Treatment/Plan Treatment Plan: Continue Plan of Care Treatment Plan: Functional Strength, Gait, Safety, Therapeutic Exercise Treatment Duration: Mar 19, 2018 Frequency: 11 times per week Estimated Hrs Per Day: .5 hour per day Patient and/or Family Agrees t: Yes Time/GCodes Time In: 1032 Time Out: 1048 Total Billed Treatment Time: 16 Total Billed Treatment 1 visit FA 16minIBRAHIMA Jovel PT Mar 19, 2018 11:09
[2018-03-19] MEDS ORDERED: SENNA W/DOCUSATE (SENOKOT S) TABLET PO NR (11:30)
[2018-03-19] MEDS ORDERED: LACTULOSE SYRUP 10GM/15ML (ENULOSE) 30ML UDC PO NR (11:30)
[2018-03-19] MEDS ORDERED: POLYETHYLENE GLYCOL 17 GM (MIRALAX) PACK PO NR (11:30)
[2018-03-19 12:00] VITALS: BP 182/83
[2018-03-19] MEDS ORDERED: KCL 10 MEQ TAB (MICRO K) PO NR (12:00)
[2018-03-19] MEDS: SUCRALFATE 1 GM (CARAFATE) TAB PO SCH ×3 (12:12→21:00)
--- NOTE | 2018-03-19 14:16 | Physical Therapy Daily Note ---
PT Daily Note-Current Subjective Patient was awake in bed and states she has been continuing exercise on her own when PT is away. Pt agreed to get out of bed for PT. Pain Numeric Pain Scale: 1 Location: Right Location Body Site: Knee Mental Status Patient Orientation: Normal For Age Attachments: Polar Pack Transfers Functional [place] Measure 0=Not Assessed/NA 4=Minimal Assistance 1=Total Assistance 5=Supervision or Setup 2=Maximal Assistance 6=Modified [place] 3=Moderate Assistance 7=Complete IndependenceIRFPAI Quality Coding Scale 6 Independent with activity with or without an assistive device 5 Patient requires set up or clean up by helper. Patient completes activity by themselves 4 Supervision or touching assist (CGA). [place] provide cues , steadying assist 3 The helper provides less than half the effort to complete the activity 2 The helper provides more than half the effort to complete the activity 1 Dependent. The helper does all the effort to complete an activity 7 Patient refused to complete or attempt activity 9 The patient did not perform the activity before the current illness or injury 88 Not attempted due to Medical conditions or safety concerns Transfers (B, C, W/C) (FIM): 6 Scootin Rollin Supine to/from Sit: 6 Sit to/from Stand: 6 Weight Bearing Right Lower Extremity: Right Full Weight Bearing Left Lower Extremity: Left Weight Bearing/Tolerated Gait Training Gait (FIM): 6 Distance (FIM): 3=150 ft Distance: 250' Gait Level of Assist: 6 Gait Assistive Device: FWW Exercises Supine Ex: Quad Set, Heel Slides, Straight leg raise Supine Reps: 10 Seated Therapy Exercises: Long arc quads, Hamstring Curls Seated Reps: 10 Assessment Patient is able to complete exercises and continue on her own time. Patient was able to ambulate for 250' with a FWW. Patient states that her pain is minimal and that she will continue to perform exercises on her own over the weekend. PT Senior Living Goals Senior Living Goals PT Comptroller Goals Time Frame: Mar 19, 2018 Transfers (B,C,W/C) (FIM): 6 Gait (FIM): 5 Gait distance (FIM): 3=150 ft Distance: 250 Gait Level of Assist: 5 Gait Assistive Device: FWW Stairs (FIM): 5 # of Steps: 3 Stairs Level Of Assist: 6 PT Plan Treatment/Plan Treatment Plan: Continue Plan of Care Treatment Plan: Functional Strength, Gait, Safety, Therapeutic Exercise Treatment Duration: Mar 19, 2018 Frequency: 11 times per week Estimated Hrs Per Day: .5 hour per day Patient and/or Family Agrees t: Yes Time/GCodes Time In: 1315 Time Out: 1338 Total Billed Treatment Time: 23 Total Billed Treatment 1 visit FA 13 mins Ex 10 mins IBRAHIMA MOTT PT Mar 19, 2018 14:16
[2018-03-19 16:49] VITALS: BP 161/86
[2018-03-19] MEDS: KCL 10 MEQ TAB (MICRO K) PO SCH (17:21)
--- NOTE | 2018-03-19 17:35 | Diagnostic Imaging Report ---
INDICATION: Fever. COMPARISON: Comparison made with prior examination from 03/11/2018. FINDINGS: The heart size, mediastinal configuration, and pulmonary vascularity are within normal limits. There is no pleural effusion, pneumothorax, or pneumonia. The osseous structures are unremarkable. IMPRESSION: No acute cardiopulmonary abnormality. Dictated by: Dictated on workstation # [id number]
[2018-03-19 17:48] LABS: BILIRUBIN,URINE NEGATIVE (NEGATIVE); CLARITY,URINE CLEAR; COLOR,URINE YELLOW; GLUCOSE, URINE (UA) NEGATIVE (NEGATIVE); KETONES,URINE 2+ (NEGATIVE); LEUKOCYTE ESTERASE ,URINE 2+ (NEGATIVE); NITRITE,URINE NEGATIVE (NEGATIVE); PH,URINE 6.5 (5-9); PROTEIN,URINE 2+ (NEGATIVE); UROBILINOGEN,URINE 1 MG/DL (NORMAL)
[2018-03-19 17:55] LABS: BACTERIA,URINE TRACE /HPF
[2018-03-19 19:40] VITALS: BP 146/70
[2018-03-19] MEDS: LACTULOSE SYRUP 10GM/15ML (ENULOSE) 30ML UDC PO SCH (20:24)
[2018-03-19] MEDS ORDERED: METOCLOPRAMIDE 10 MG (REGLAN) TAB PO SCH (21:00)
[2018-03-19] MEDS ORDERED: LOSARTAN 100 MG (COZAAR) TABLET PO SCH (21:00)
[2018-03-19] MEDS: doxAzosin 2 MG (CARDURA) TAB PO SCH (21:00)
[2018-03-19] MEDS ORDERED: ALLOPURINOL 100 MG (ZYLOPRIM) TAB PO SCH (21:00)
[2018-03-19] MEDS ORDERED: SPIRONOLACTONE 25 MG (ALDACTONE) TAB PO SCH (21:00)
[2018-03-19] MEDS ORDERED: PANTOPRAZOLE 40 MG (PROTONIX) TAB PO SCH (21:00)
[2018-03-19] MEDS ORDERED: POLYETHYLENE GLYCOL 17 GM (MIRALAX) PACK PO SCH (21:00)
[2018-03-19] MEDS ORDERED: METOCLOPRAMIDE HCL 10 MG PO SCH (21:00)
[2018-03-19] MEDS ORDERED: THYROID (ARMOUR) 60 MG TABLET PO SCH (21:00)
[2018-03-19] MEDS ORDERED: THYROID PORK 90 MG PO SCH (21:00)
[2018-03-19] MEDS ORDERED: NON-FORMULARY MEDICATION 1 EA EA (Allopurinol 100 MG) PO SCH (21:00)
[2018-03-19] MEDS: SODIUM BICARBONATE 650 MG TABLET (NON-FORMULARY) PO SCH (21:01)
[2018-03-20] VITALS: BP 156/73
[2018-03-20 04:00] VITALS: BP 172/79
[2018-03-20] MEDS: MULTIVIT W/MINERALS TAB (THERAGRAN M) PO SCH (06:38)
[2018-03-20] MEDS: oxyCODONE/APAP 5/325MG (PERCOCET 5) TABLET PO PRN (06:39)
[2018-03-20] MEDS: KCL 10 MEQ TAB (MICRO K) PO SCH (06:39)
[2018-03-20] MEDS ORDERED: PANTOPRAZOLE 40 MG (PROTONIX) TAB PO SCH (07:00)
[2018-03-20 07:35] LABS: HEMOGLOBIN 9.7 G/DL (11.5-16.0)
[2018-03-20 08:23] VITALS: BP 128/74
[2018-03-20] MEDS ORDERED: NON-FORMULARY MEDICATION 1 EA EA (Amlodipine Besylate 10 MG) PO SCH (09:00)
[2018-03-20] MEDS ORDERED: NON-FORMULARY MEDICATION 1 EA EA (Dexlansoprazole (Dexilant) 60 MG) PO SCH (09:00)
[2018-03-20] MEDS ORDERED: meTOproloL SUCCINATE 50 MG (TOPROL XL) TAB PO SCH (09:00)
[2018-03-20] MEDS: LACTULOSE SYRUP 10GM/15ML (ENULOSE) 30ML UDC PO SCH (09:00)
--- NOTE | 2018-03-20 09:01 | Progress Note-Standard ---
Standard Progress Note Progress Notes/Assess & Plan Date Seen by a Provider: Mar 20, 2018 Time Seen by a Provider: 09:00 Progress/Assessment & Plan post op check No complaints radiographs--HW well positioned without fracture RLE--2 plus DP pulse with brisk cap refill. sensation intact throughout. Intact DF and PF of toes and ankle s/p RTKA mobilize as able Final Diagnosis no complaints Vital Signs Date Time Temp Pulse Resp B/P (MAP) Pulse Ox O2 Delivery O2 Flow Rate FiO2 03/20/18 08:23 99.1 79 18 128/74 (92) 94 Room Air 03/20/18 04:00 99.8 84 18 172/79 (110) 94 Room Air 03/20/18 00:00 98.3 83 18 156/73 (100) 97 Room Air 03/19/18 19:40 99.6 87 24 146/70 (95) 95 Room Air 03/19/18 18:21 100.2 03/19/18 18:16 100.2 03/19/18 16:49 101.4 93 18 161/86 (111) 93 Room Air 03/19/18 12:00 98.6 93 20 182/83 (116) 96 Room Air I & O 03/20/18 07:00 Intake Total 2910 ml Balance 2910 ml Laboratory Tests Test 03/19/18 17:35 03/20/18 06:18 Range/Units Urine Color YELLOW Urine Clarity CLEAR Urine pH 6.5 5-9 Urine Specific [place] 1.010 L 1.016-1.022 Urine Protein 2+ H NEGATIVE Urine Glucose (UA) NEGATIVE NEGATIVE Urine Ketones 2+ H NEGATIVE Urine Nitrite NEGATIVE NEGATIVE Urine Bilirubin NEGATIVE NEGATIVE Urine Urobilinogen 1 NORMAL MG/DL Urine Leukocyte Esterase 2+ H NEGATIVE Urine RBC (Auto) 1+ H NEGATIVE Urine RBC 2-5 H /HPF Urine WBC 10-25 H /HPF Urine Squamous Epithelial Cells 2-5 /HPF Urine Crystals NONE /LPF Urine Bacteria TRACE /HPF Urine Casts NONE /LPF Urine Mucus NEGATIVE /LPF Urine Culture Indicated YES Hemoglobin 9.7 L 11.5-16.0 G/DL Hematocrit 30 L 35-52 % RLE--no calf tenderness. Neg Dylon's dressing intact s/p RTKA doing well DC home NADIA CARO MD Mar 20, 2018 09:01
[2018-03-20] MEDS: SENNA W/DOCUSATE (SENOKOT S) TABLET PO SCH (09:20)
[2018-03-20] MEDS: ENOXAPARIN 30 MG/0.3 ML (LOVENOX) SYR SC SCH (09:53)
[2018-03-20] MEDS: SUCRALFATE 1 GM (CARAFATE) TAB PO SCH (09:53)
[2018-03-20] MEDS: ASPIRIN E.C. 81 MG (ECOTRIN) TAB PO SCH (09:53)
[2018-03-20] MEDS: meTOproloL SUCCINATE 50 MG (TOPROL XL) TAB PO SCH (09:54)
[2018-03-20] MEDS: amLODIPine 10 MG (NORVASC) TAB PO SCH (09:54)
[2018-03-20] MEDS: doxAzosin 2 MG (CARDURA) TAB PO SCH (09:54)
[2018-03-20] MEDS: SODIUM BICARBONATE 650 MG TABLET (NON-FORMULARY) PO SCH (09:54)
[2018-03-20 10:25] VITALS: BP 128/74
--- NOTE | 2018-03-20 10:56 | Physical Therapy Daily Note ---
PT Daily Note-Current Subjective Pt agreeable and denies pain. Pt verbalizes understanding of HEP and managing one step within her home. Pt verbalizes she is ready for discharge. Mental Status Patient Orientation: Person, Place, Situation Transfers Functional [place] Measure 0=Not Assessed/NA 4=Minimal Assistance 1=Total Assistance 5=Supervision or Setup 2=Maximal Assistance 6=Modified [place] 3=Moderate Assistance 7=Complete IndependenceIRFPAI Quality Coding Scale 6 Independent with activity with or without an assistive device 5 Patient requires set up or clean up by helper. Patient completes activity by themselves 4 Supervision or touching assist (CGA). [place] provide cues , steadying assist 3 The helper provides less than half the effort to complete the activity 2 The helper provides more than half the effort to complete the activity 1 Dependent. The helper does all the effort to complete an activity 7 Patient refused to complete or attempt activity 9 The patient did not perform the activity before the current illness or injury 88 Not attempted due to Medical conditions or safety concerns Transfers all levels mod (I). Weight Bearing Right Lower Extremity: Right Full Weight Bearing Left Lower Extremity: Left Weight Bearing/Tolerated Gait Training Gait Assistive Device: FWW Pt amb with FWW and CGA x 120ft, step to gait pattern. Exercises Supine Ex: LE Protocol Supine Reps: 20 Treatments PT used BR mod (I) Assessment Current Status: Good Progress Pt mobility mod (I), showing good pain tolerance. Pt denied pain throughout treatment. Showed good understanding of HEP. Pt Knee AROM approximately 0-5- 90deg. Pt in bed with CPM 0-80deg, all needs met and call light in reach. PT Longterm Goals Longterm Goals PT Longterm Goals Time Frame: Mar 19, 2018 Transfers (B,C,W/C) (FIM): 6 Gait (FIM): 5 Gait distance (FIM): 3=150 ft Distance: 250 Gait Level of Assist: 5 Gait Assistive Device: FWW Stairs (FIM): 5 # of Steps: 3 Stairs Level Of Assist: 6 PT Plan Treatment/Plan Treatment Plan: Continue Plan of Care Treatment Plan: Functional Strength, Gait, Safety, Therapeutic Exercise Treatment Duration: Mar 19, 2018 Frequency: 11 times per week Estimated Hrs Per Day: .5 hour per day Patient and/or Family Agrees t: Yes Time/GCodes Time In: 808 Time Out: 847 Total Billed Treatment Time: 39 Total Billed Treatment 1, gait, therex, FA CRISTOFER,LUCIANO CPTA Mar 20, 2018 10:56
== END 2018-03-20 10:25 | disposition home health service (06) | DRG 470 ==
LOC: 4TH 07:18
PROVIDERS: ADMIT Orthopaedic Surgery; ATTEND Orthopaedic Surgery
PROC: 0SRC0J9 Replacement of Right Knee Joint with Synthetic Substitute, Cemented, Open Approach (ICD-10-PCS; principal; 2018-03-17 09:34)
DX: M17.11 Unilateral primary osteoarthritis, right knee (principal); I12.9 Hypertensive chronic kidney disease with stage 1 through stage 4 chronic kidney disease, or unspecified chronic kidney disease; E78.5 Hyperlipidemia, unspecified; I35.9 Nonrheumatic aortic valve disorder, unspecified; N18.9 Chronic kidney disease, unspecified; I25.10 Atherosclerotic heart disease of native coronary artery without angina pectoris; E78.00 Pure hypercholesterolemia, unspecified; K59.09 Other constipation; E66.9 Obesity, unspecified; Z68.36 Body mass index [BMI] 36.0-36.9, adult; K21.9 Gastro-esophageal reflux disease without esophagitis; Z85.820 Personal history of malignant melanoma of skin; M10.9 Gout, unspecified; N25.89 Other disorders resulting from impaired renal tubular function; Z90.5 Acquired absence of kidney; Z79.82 Long term (current) use of aspirin
CPT/HCPCS: 36415; 71046; 73560; 80053; 81000; 85014; 85018; 85025; 86850; 86900; 86901; 87040; 87088; 94664

== ENCOUNTER → 2018-04-21 | Outpatient (CLI) | payer MEDICARE, OTHER ==
[~2018-04-21] MED LIST changes: +OXYC1TAB87 PO
--- NOTE | 2018-04-21 20:43 | Diagnostic Imaging Report ---
INDICATION: Screening. EXAMINATION: Digital mammogram bilateral screening with 3-D tomosynthesis. The current study was also evaluated with a Computer Aided Detection (CAD) system. This study was compared to the prior exams of 03/16/2017, 03/04/2016, and 01/16/2015. At this time, there are no current complaints. FINDINGS: There are scattered fibroglandular densities in both breasts which could obscure a lesion. Overall, there does not appear to have been any significant change when compared to the prior exam. No primary or secondary sign of malignancy is noted. 3D tomographic images fail to show any sign of malignancy. IMPRESSION: There is no radiographic evidence for malignancy. ACR BI-RADS Category 1: Negative. Result letter will be mailed to the patient. Note: At least 10% of breast cancer is not imaged by mammography. Dictated by: Dictated on workstation # [id number]
== END ==
LOC: RAD 09:21
PROVIDERS: ATTEND Family Medicine
DX: Z12.31 Encounter for screening mammogram for malignant neoplasm of breast (principal)
CPT/HCPCS: 77067

== ENCOUNTER 2018-05-03 09:14 | Outpatient (RCR) | payer MEDICARE, OTHER ==
[~2018-05-03 09:14] MED LIST changes: -AMLO10TA6 PO; +AMLO10TA7 PO; +LOSA100T57 PO; -LOSA100T8 PO
== END 2018-06-30 15:32 | disposition home or self-care (01) ==
PROVIDERS: ATTEND Orthopaedic Surgery
DX: Z47.1 Aftercare following joint replacement surgery (principal); Z96.651 Presence of right artificial knee joint

== ENCOUNTER → 2019-04-25 | Outpatient (CLI) | payer MEDICARE, OTHER ==
[~2019-04-25] MED LIST changes: -ROSU20TA PO; +ROSU20TA2 PO
--- NOTE | 2019-04-26 10:37 | Diagnostic Imaging Report ---
Digital mammogram. Bilateral screening. This study was compared to the prior exam of 04/21/2018, 03/16/2017 and 03/04/2016. At this time there are no current complaints. The current study was also evaluated with a Computer Aided Detection (CAD) system. FINDINGS: There are scattered fibroglandular densities in both breasts which could obscure a lesion. Overall, there does not appear to have been any significant change when compared to the prior exam. No primary or secondary sign of malignancy is noted. IMPRESSION: There is no radiographic evidence for malignancy. ACR BI-RADS Category 1: Negative. Result letter will be mailed to the patient. Note: At least 10% of breast cancer is not imaged by mammography. Dictated by: Dictated on workstation # [id number]
== END ==
LOC: RAD 10:00
PROVIDERS: ATTEND Family Medicine
DX: Z12.31 Encounter for screening mammogram for malignant neoplasm of breast (principal)
CPT/HCPCS: 77067

== ENCOUNTER → 2020-01-26 | Outpatient (CLI) | payer MEDICARE, OTHER ==
[~2020-01-26] MED LIST changes: +HOLD METFORMIN - RECEIVED CONTRAST 20 ML VIAL IV SCH; +IOHEXOL 350 MG/ML 100 ML (OMNIPAQUE 350) VIAL IV ONE; -METO-370 PO; +METO50TA7 PO; +MULT-567 PO; -MULT1TAB69 PO; +NF-SODBICA PO; +NS 100 ML (IVPB) BAG IV ONE; -SODI650T PO
[2020-01-26 08:27] LABS: CREATININE SERUM 1.22 MG/DL (0.60-1.30)
--- NOTE | 2020-01-26 09:34 | Diagnostic Imaging Report ---
EXAMINATION: CT Abdomen Pelvis with and without intravenous contrast. TECHNIQUE: Precontrast acquisitions were acquired through the abdomen and pelvis. Multiple contiguous axial images were obtained through the abdomen and pelvis after the administration of intravenous contrast. All CT scans use one or more of the following dose optimizing techniques: automated exposure control, MA and/or KvP adjustment based on a patient size and exam type, or iterative reconstruction. HISTORY: Abdominal pain, rectal bleeding. COMPARISON: None available. FINDINGS: Limited views of the lower thorax show coronary artery calcifications. The liver is normal without focal lesion. There is no biliary ductal dilation. Gallbladder is surgically absent. Pancreas is normal. Spleen is normal. Adrenal glands are normal. Left kidney is absent. There are multiple cysts in the right kidney. No suspicious renal lesions are seen. There is no hydronephrosis. Urinary bladder is normal. Visualized bowel is normal in caliber without obstruction or inflammation. No free fluid or air. No abdominal or pelvic lymphadenopathy. Aorta is normal in caliber without aneurysm. There are no suspicious osseus lesions. IMPRESSION: 1. No acute abnormality in the abdomen or pelvis. Dictated by: Dictated on workstation # [id number]
== END ==
PROVIDERS: ATTEND Surgery
DX: K62.5 Hemorrhage of anus and rectum (principal)
CPT/HCPCS: 36415; 74178; 82565; 84520

== ENCOUNTER → 2020-05-01 | Outpatient (CLI) | payer MEDICARE, OTHER ==
[~2020-05-01] MED LIST changes: +AMLO-251 PO; -AMLO10TA7 PO; -HOLD METFORMIN - RECEIVED CONTRAST 20 ML VIAL IV SCH; -IOHEXOL 350 MG/ML 100 ML (OMNIPAQUE 350) VIAL IV ONE; -NS 100 ML (IVPB) BAG IV ONE; -PANT40TA3 PO; +PANT40TA52 PO
--- NOTE | 2020-05-01 09:48 | Diagnostic Imaging Report ---
INDICATION: Routine screening. COMPARISON: 04/25/2019 and 04/21/2018. TECHNIQUE: 2D and 3D bilateral screening mammography was performed with CAD. FINDINGS: Both breasts are heterogeneously dense, limiting the sensitivity of mammography. Benign parenchymal and vascular calcifications are noted in both breasts. No mass or malignant appearing microcalcifications are seen. The axillae are unremarkable. IMPRESSION: No mammographic features suspicious for malignancy are identified. ACR BI-RADS Category 2: Benign findings. Result letter will be mailed to the patient. Note: At least 10% of breast cancer is not imaged by mammography. Dictated by: Dictated on workstation # [id number]
== END ==
LOC: RAD 08:31
PROVIDERS: ATTEND Nurse Practitioner Family
DX: Z12.31 Encounter for screening mammogram for malignant neoplasm of breast (principal)
CPT/HCPCS: 77063; 77067

== ENCOUNTER → 2021-05-06 | Outpatient (CLI) | payer MEDICARE, OTHER ==
[~2021-05-06] MED LIST changes: +MTC10T PO
--- NOTE | 2021-05-06 11:37 | Diagnostic Imaging Report ---
Indication: Routine screening. Comparison is made with prior mammogram 05/01/2020 and 04/25/2019. 2-D and 3-D bilateral screening mammography was performed with CAD. Both breasts remain heterogeneously dense, limiting the sensitivity of mammography. The parenchymal pattern is stable. No mass or malignant-appearing microcalcifications are seen. Axillae are unremarkable. IMPRESSION: BI-RADS Category 1 No mammographic features suspicious for malignancy are identified. ACR BI-RADS Category 1: Negative. Result letter will be mailed to the patient. Note: At least 10% of breast cancer is not imaged by mammography. Dictated by: Dictated on workstation # [id number]
== END ==
LOC: RAD 08:45
PROVIDERS: ATTEND Nurse Practitioner Family
DX: Z12.31 Encounter for screening mammogram for malignant neoplasm of breast (principal)
CPT/HCPCS: 77063; 77067

== ENCOUNTER → 2021-10-31 | Outpatient (CLI) | payer MEDICARE, OTHER ==
--- NOTE | 2021-10-31 09:54 | Diagnostic Imaging Report ---
INDICATION: Right hip injury. Time of Exam: 9:15 AM Two views of the right hip show normal femoral acetabular alignment. Femoral head and neck are intact. No fractures are seen. IMPRESSION: No acute bony abnormality is detected. Dictated by: Dictated on workstation # [id number]
== END ==
LOC: RAD 08:58
PROVIDERS: ATTEND Nurse Practitioner Family
DX: S79.911A Unspecified injury of right hip, initial encounter (principal); X58.XXXA Exposure to other specified factors, initial encounter
CPT/HCPCS: 73502

== ENCOUNTER → 2022-05-09 | Outpatient (CLI) | payer MEDICARE, OTHER ==
--- NOTE | 2022-05-09 11:42 | Diagnostic Imaging Report ---
Indication: Routine screening. Comparison is made with prior mammograms 05/06/2021 and 05/01/2020. 2-D and 3-D bilateral screening mammography was performed with CAD. Both breasts are heterogeneously dense, limiting the sensitivity of mammography. The parenchymal pattern is stable. No mass or malignant-appearing microcalcifications are seen. Axillae are unremarkable. IMPRESSION: BI-RADS Category 1 No mammographic features suspicious for malignancy are identified. ACR BI-RADS Category 1: Negative. Result letter will be mailed to the patient. Note: At least 10% of breast cancer is not imaged by mammography. Dictated by: Dictated on workstation # [id number]
== END ==
LOC: RAD 08:29
PROVIDERS: ATTEND Internal Medicine
DX: Z12.31 Encounter for screening mammogram for malignant neoplasm of breast (principal)
CPT/HCPCS: 77063; 77067

== ENCOUNTER 2023-01-15 16:36 | Inpatient (IN) | payer MEDICARE, OTHER ==
[2023-01-15] VITALS (8 sets, daily range): BP systolic 92–146; BP diastolic 30–92
[~2023-01-15] VITALS: Ht 162.6 cm; Wt 84.4 kg
[~2023-01-15 16:36] MED LIST changes: -LOSA100T57 PO; +LOSA100T58 PO
--- NOTE | 2023-01-15 17:07 | ED Lower Extremity ---
General Chief Complaint: Lower Extremity Stated Complaint: POSS BUG BITE RIGHT FOOT Nursing Triage Note: PT AMB TO TRIAGE WITH C/O R FOOT SWELLING X3 DAYS. PT STATES SHE DOES NOT KNOW WHAT HAPPENED AND DENIES INJURY. PT STATES IT HURTS WORSE WHEN STANDING Source: patient Exam Limitations: no limitations History of Present Illness Date Seen by Provider: Jan 15, 2023 Time Seen by Provider: 17:04 Initial Comments Patient is a 82-year-old female with a history of psoriasis, who presents ED with right dorsum foot pain for the past 3 days. Started with a small red spot on the dorsum side of the foot. She states that swelling and redness has increased throughout the foot. She reports pain with walking. Denies of any specific injury or history of similar symptoms. Denies of any known bug bite. She reports redness and warmth. She denies history of gout. She has no other pain in any other locations such as her knees, shoulders or elbows. She denies fever, body aches, chest pain, shortness of breath, headache, dizziness. She does report some chills today. Allergies and Home Medications Allergies Coded Allergies: adhesive tape (Verified Allergy, Unknown, 03/11/18) Patient Home Medication List Home Medication List Reviewed: Yes Allopurinol (Allopurinol) 100 Mg Tablet, 100 MG PO HS, (Reported) Entered as Reported by: ZUNILDA LYLE on 11/16/17 1029 Amlodipine Besylate (Amlodipine Besylate) 10 Mg Tablet, 10 MG PO DAILY, (Reported) Entered as Reported by: ZUNILDA LYLE on 11/16/17 1029 Aspirin (Aspirin) 81 Mg Tab.chew, 81 MG PO HS, (Reported) Entered as Reported by: ZUNILDA LYLE on 11/16/17 1029 Cholecalciferol (Vitamin D3) (Vitamin D) 5,000 Unit Capsule, 5,000 UNIT PO DAILY, (Reported) Entered as Reported by: ZUNILDA LYLE on 11/16/17 1029 Dexlansoprazole (Dexilant) 60 Mg Sacha., 60 MG PO DAILY, (Reported) Entered as Reported by: ZUNILDA LYLE on 11/16/17 1029 Doxazosin Mesylate (Doxazosin Mesylate) 2 Mg Tablet, 2 MG PO BID, (Reported) Entered as Reported by: ZUNILDA LYLE on 11/16/17 1029 Losartan Potassium (Losartan Potassium) 100 Mg Tablet, 100 MG PO HS, (Reported) Entered as Reported by: ZUNILDA LYLE on 11/16/17 1029 Metoclopramide HCl (Metoclopramide HCl) 10 Mg Tablet, 10 MG PO HS, (Reported) Entered as Reported by: ZUNILDA LYLE on 11/16/17 1029 Metoprolol Succinate (Metoprolol Succinate) 50 Mg Tab.er.24h, 50 MG PO DAILY, (Reported) Entered as Reported by: ZUNILDA LYLE on 11/16/17 1029 Multivitamin (Multivitamins) 1 Each Tablet, 1 EACH PO DAILY, (Reported) Entered as Reported by: ZUNILDA LYLE on 11/16/17 1029 Oxycodone HCl/Acetaminophen (Percocet 5-325 mg Tablet) 1 Each Tablet, 1 EACH PO Q4H PRN for PAIN-MODERATE Prescribed by: NADIA CARO on 03/17/18 0731 Pantoprazole Sodium (Pantoprazole Sodium) 40 Mg Tablet.dr, 40 MG PO HS, (Reported) Entered as Reported by: ZUNILDA LYLE on 03/11/18 1342 Rosuvastatin Calcium (Crestor) 20 Mg Tablet, 20 MG PO HS, (Reported) Entered as Reported by: ZUNILDA LYLE on 11/16/17 1029 Sodium Bicarbonate (Sodium Bicarbonate) 650 Mg Tablet, 1,950 MG PO BID, (Reported) Entered as Reported by: ZUNILDA LYLE on 11/16/17 1029 Spironolactone (Spironolactone) 25 Mg Tablet, 25 MG PO HS, (Reported) Entered as Reported by: ZUNILDA LYLE on 11/16/17 1029 Sucralfate (Sucralfate) 1 Gm Tablet, 1 GM PO QID, (Reported) Entered as Reported by: ZUNILDA LYLE on 11/16/17 1029 Thyroid,Pork (Thyroid) 90 Mg Tablet, 90 MG PO HS, (Reported) Entered as Reported by: ZUNILDA LYLE on 11/16/17 1029 Review of Systems Constitutional: chills; No fever, No malaise EENTM: No ear pain, No blurred vision, No double vision Respiratory: No cough, No dyspnea on exertion Cardiovascular: No chest pain Gastrointestinal: No abdominal pain, No diarrhea, No nausea, No vomiting Genitourinary: No decreased output, No discharge Musculoskeletal: No back pain; joint pain, joint swelling, muscle pain Skin: change in color All Other Systems Reviewed Negative Unless Noted: Yes Past Xcuwbsl-Jugvwg-Vwoaiz Hx Patient Social History Tobacco Use?: No Use of E-Cig and/or Vaping dev: No Substance use?: No Alcohol Use?: No Pt feels they are or have been: No Immunizations Up To Date Tetanus Booster (TDap): Unknown PED Vaccines UTD: No Seasonal Allergies Seasonal Allergies: No Past Medical History Surgery/Hospitalization HX: HEART VALVE, HEART MURMER, HTN, HLD, CKD, PSORIASIS, HYST, DIANE, KIDNEY REMOVAL, R KNEE REPLACEMENT Surgeries: Yes (left nephrectomy, hemorrhoidectomy, neck sx, R knee scope) Hysterectomy, Orthopedic Respiratory: Yes Sleep Apnea Currently Using CPAP: Yes Cardiac: Yes Coronary Artery Disease, High Cholesterol, Hypertension Neurological: No Reproductive Disorders: No Sexually Transmitted Disease: No Genitourinary: Yes (left kidney removed) Renal Failure Gastrointestinal: Yes Gastroesophageal Reflux, Chronic Constipation Musculoskeletal: Yes Arthritis Endocrine: Yes HEENT: No Cancer: Yes Melanoma What Type of Treatment Did You: Surgical Intervention Psychosocial: No Integumentary: No Blood Disorders: No Family Medical History Completed stroke G8 SISTER Diabetes mellitus 19 MOTHER G8 BROTHER G8 SISTER Hypertension 19 FATHER 19 MOTHER G8 BROTHER G8 SISTER Myocardial infarction 19 FATHER 19 MOTHER Parkinson's disease G8 BROTHER Respiratory disorder G8 BROTHER (lung cancer) Physical Exam Vital Signs Vital Signs - First Documented 01/15/23 16:44 Temp 36.7 Pulse 79 Resp 16 B/P (MAP) 155/71 (99) Pulse Ox 96 O2 Delivery Room Air Capillary Refill : Height, Weight, BMI Height: 5'4.00" Weight: 212lbs. 0.0oz. 96.998431dk; 30.00 BMI Method: General Appearance: WD/WN, no apparent distress HEENT: PERRL/EOMI, normal ENT inspection, TMs normal, pharynx normal Neck: non-tender, full range of motion, supple Cardiovascular: regular rate, rhythm, no edema, no gallop, no JVD Respiratory: chest non-tender, lungs clear, normal breath sounds, no respiratory distress, no accessory muscle use Gastrointestinal: normal bowel sounds, non tender, soft, no organomegaly Back: normal inspection, no CVA tenderness Hips: bilateral hip non-tender, bilateral hip normal inspection, bilateral hip no evidence of injury Knees: bilateral knee non-tender, bilateral knee normal inspection, bilateral knee normal range of motion Ankles: bilateral ankle non-tender, bilateral ankle normal range of motion; right ankle other (Right anterior foot swelling and warmth with erythema) Feet: right foot other (Right dorsum foot erythema, swelling. No area of inoculation. Cap refill less than 2. Dorsalis pedis +2, posterior tibialis +2.) Neurologic/Psychiatric: management consulting II-XII nml as tested, no motor/sensory deficits, alert, normal mood/affect, oriented x 3 Skin: other (Erythema warmth noted to right dorsum foot) Progress/Results/Core Measures Results/Orders Lab Results Laboratory Tests Test 01/15/23 17:15 Range/Units White Blood Count 9.8 4.3-11.0 10^3/uL Red Blood Count 2.99 L 3.80-5.11 10^6/uL Hemoglobin 9.7 L 11.5-16.0 g/dL Hematocrit 31 L 35-52 % Mean Corpuscular Volume 102 H 80-99 fL Mean Corpuscular Hemoglobin 32 25-34 pg Mean Corpuscular Hemoglobin Concent 32 32-36 g/dL Red Cell Distribution Width 14.5 10.0-14.5 % Platelet Count 144 130-400 10^3/uL Mean Platelet Volume 11.6 9.0-12.2 fL Immature Granulocyte % (Auto) 0 % Neutrophils (%) (Auto) 67 42-75 % Lymphocytes (%) (Auto) 19 12-44 % Monocytes (%) (Auto) 11 0-12 % Eosinophils (%) (Auto) 3 0-10 % Basophils (%) (Auto) 0 0-10 % Neutrophils # (Auto) 6.5 1.8-7.8 10^3/uL Lymphocytes # (Auto) 1.9 1.0-4.0 10^3/uL Monocytes # (Auto) 1.0 0.0-1.0 10^3/uL Eosinophils # (Auto) 0.3 0.0-0.3 10^3/uL Basophils # (Auto) 0.0 0.0-0.1 10^3/uL Immature Granulocyte # (Auto) 0.0 0.0-0.1 10^3/uL Sodium Level 141 135-145 MMOL/L Potassium Level 3.7 3.6-5.0 MMOL/L Chloride Level 110 H 98-107 MMOL/L Carbon Dioxide Level 23 21-32 MMOL/L Anion Gap 8 5-14 MMOL/L Blood Urea Nitrogen 28 H 7-18 MG/DL Creatinine 1.73 H 0.60-1.30 MG/DL Estimat Glomerular Filtration Rate 30 BUN/Creatinine Ratio 16 Glucose Level 134 H 70-105 MG/DL Lactic Acid Level 0.97 0.50-2.00 MMOL/L Uric Acid 5.5 2.6-7.2 MG/DL Calcium Level 8.3 L 8.5-10.1 MG/DL Corrected Calcium 8.9 8.5-10.1 MG/DL Total Bilirubin 0.5 0.1-1.0 MG/DL Aspartate Amino Transf (AST/SGOT) 17 5-34 U/L Alanine Aminotransferase (ALT/SGPT) 15 0-55 U/L Alkaline Phosphatase 72 40-136 U/L C-Reactive Protein High Sensitivity 9.29 H 0.00-0.50 MG/DL Total Protein 6.5 6.4-8.2 GM/DL Albumin 3.3 3.2-4.5 GM/DL My Orders Orders - GINETTE LOVE Cbc With Automated Diff (01/15/23 17:02) Comprehensive Metabolic Panel (01/15/23 17:02) Uric Acid (01/15/23 17:02) Hs C Reactive Protein (01/15/23 17:02) Foot, Right, 3 View (01/15/23 17:02) Blood Culture (01/15/23 17:02) Lactic Acid Analyzer (01/15/23 17:02) Ed Admission (Communication) (01/15/23 18:01) Blood Culture (01/15/23 18:01) Vital Signs/I&O 01/15/23 16:44 Temp 36.7 Pulse 79 Resp 16 B/P (MAP) 155/71 (99) Pulse Ox 96 O2 Delivery Room Air Blood Pressure Mean: 99 Departure Communication (PCP) Reviewed previous ER visits, H&P, lab testing. Differential diagnosis of cellulitis, gout. Patient presents to ED with right-sided dorsum swelling and redness no palpable abscess. She does have an area That is darker on the d orsum side the foot where it is more tender. No specific injury. Dorsalis pedis +2, posterior tibialis +2. History of psoriasis and currently on otezla. No history of gout. On exam she does have some redness and swelling on the dorsum side where it is more prominent. 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 No calf tenderness. She is afebrile. Stable vital signs. Solitary kidney. CBC, CMP, CRP, lactic acid and blood cultures was ordered. CBC showed normal white blood count. 9.7. Chemistry showed creatinine 1.73 GFR 30, CRP and 9.29. Uric acid 5.5. X-ray of the right foot negative for acute fracture. This was discussed with Dr. Palma patient's primary care physician. I do think patient would likely benefit with IV ant ibiotics and fluids with admission as this would likely not improve with oral antibiotics. She agreed to accept patient. Patient will be started on Zosyn and vancomycin And fluids. Dr. Palma will put in acute orders. Patient agreed for admission. Skin was marked. This appears to be more cellulitic likely from her Psoriatic lesion Impression Primary Impression: Cellulitis Disposition: ADMITTED INPATIENT Condition: Stable Admissions Decision to Admit Reason: Admit from ER (General) Decision to Admit/Date: Jan 15, 2023 Time/Decision to Admit Time: 18:01 Departure-Patient Inst. Referrals: INEZ PALMA DO (PCP/Family) Primary Care Physician GINETTE LOVE Jan 15, 2023 17:07
[2023-01-15 17:25] LABS: BASOPHILS % (AUTO) 0 % (0-10); EOSINOPHILS # (AUTO) 0.3 10^3/uL (0.0-0.3); EOSINOPHILS % (AUTO) 3 % (0-10); HEMATOCRIT 31 % (35-52); HEMOGLOBIN 9.7 g/dL (11.5-16.0); LYMPHOCYTES # (AUTO) 1.9 10^3/uL (1.0-4.0); LYMPHOCYTES % (AUTO) 19 % (12-44); MEAN CORPUSCULAR HEMOGLOBIN 32 pg (25-34); MEAN CORPUSCULAR HGB CONC 32 g/dL (32-36); MEAN CORPUSCULAR VOLUME 102 fL (80-99); MEAN PLATELET VOLUME 11.6 fL (9.0-12.2); MONOCYTES % (AUTO) 11 % (0-12); NEUTROPHILS # (AUTO) 6.5 10^3/uL (1.8-7.8); NEUTROPHILS % (AUTO) 67 % (42-75); PLATELET COUNT 144 10^3/uL (130-400); WHITE BLOOD COUNT 9.8 10^3/uL (4.3-11.0)
[2023-01-15 17:34] LABS: ALBUMIN 3.3 GM/DL (3.2-4.5); POTASSIUM 3.7 MMOL/L (3.6-5.0)
--- NOTE | 2023-01-15 17:34 | Diagnostic Imaging Report ---
EXAMINATION: Left foot radiographs, 3 views. COMPARISON: None. HISTORY: 82-year-old female, left foot pain and swelling. FINDINGS: The bones appear potentially demineralized. There is a calcaneal heel spur. The joint spaces are well preserved. There is no bone erosion. There are vascular calcifications. IMPRESSION: 1. No acute bony abnormality in the left foot. 2. Calcaneal heel spur. Dictated by: Dictated on workstation # [id number]
[2023-01-15 17:35] LABS: CALCIUM 8.3 MG/DL (8.5-10.1)
[2023-01-15 17:37] LABS: TOTAL PROTEIN 6.5 GM/DL (6.4-8.2)
[2023-01-15 17:38] LABS: BILIRUBIN,TOTAL 0.5 MG/DL (0.1-1.0)
[2023-01-15 17:40] LABS: CREATININE SERUM 1.73 MG/DL (0.60-1.30)
[2023-01-15 17:43] LABS: URIC ACID 5.5 MG/DL (2.6-7.2)
[2023-01-15] MEDS ORDERED: diphenhydrAMINE INJ 50 MG/ML VIAL IVP PRN (19:00)
[2023-01-15] MEDS ORDERED: VANCOMYCIN INJECTION 0.1 MG in NS (IVPB) 250 ML 250 ML IV SCH (19:00)
[2023-01-15] MEDS ORDERED: ONDANSETRON INJECTION 4 MG/2 ML (SDV) IV PRN (19:00)
[2023-01-15] MEDS ORDERED: ANTACID SUSPENSION 30 ML UDC PO PRN (19:00)
[2023-01-15] MEDS ORDERED: LACTULOSE SYRUP 10GM/15ML 30ML UDC PO PRN (19:00)
[2023-01-15] MEDS ORDERED: HYDROmorphone INJECTION 2 MG/ML VIAL IV PRN (19:00)
[2023-01-15] MEDS ORDERED: oxyCODONE IMMEDIATE RELEASE 5 MG TABLET PO PRN (19:00)
[2023-01-15] MEDS ORDERED: BISACODYL 10 MG SUPPOSITORY PR PRN (19:00)
[2023-01-15] MEDS ORDERED: ONDANSETRON 4 MG ORAL DISSOLVE TABLET PO PRN (19:00)
[2023-01-15] MEDS ORDERED: ENOXAPARIN 40 MG/0.4 ML SYRINGE SC SCH (19:00)
[2023-01-15] MEDS ORDERED: CALCIUM CARBONATE 500 MG CHEW TABLET PO PRN (19:00)
[2023-01-15] MEDS ORDERED: diphenhydrAMINE 25 MG TABLET PO PRN (19:00)
[2023-01-15] MEDS ORDERED: MILK OF MAGNESIA 400 MG/5 ML 30 ML UDC PO PRN (19:00)
[2023-01-15] MEDS ORDERED: PIPERACILLIN/Tazobactam 4.5 GM in NS (IVPB) 100 ML 100 ML IV NR (19:15)
[2023-01-15] MEDS ORDERED: VANCOMYCIN INJECTION 1,750 MG in NS IV 500 ML 500 ML IV NR (19:30)
[2023-01-15] MEDS ORDERED: VANCOMYCIN INJECTION 1,500 MG in NS IV 500 ML 500 ML IV NR (19:45)
[2023-01-15] MEDS ORDERED: ENOXAPARIN 30 MG/0.3 ML SYRINGE SC SCH (20:00)
[2023-01-15] MEDS: NS IV 1000 ML 1,000 ML IV SCH (20:38)
[2023-01-15] MEDS ORDERED: VANCOMYCIN 1000 MG/VIAL ONE (22:46)
[2023-01-15] MEDS: DOCUSATE SODIUM 100 MG CAPSULE PO SCH (22:50)
[2023-01-15] MEDS: SENNOSIDES 8.6 MG (SENOKOT) TAB PO SCH (22:51)
[2023-01-16] MEDS: PIPERACILLIN/Tazobactam 4.5 GM in NS (IVPB) 100 ML 100 ML IV SCH ×3 (01:25→18:48)
[2023-01-16 03:19] VITALS: BP 147/77
[2023-01-16 05:34] LABS: BASOPHILS # (AUTO) 0.1 10^3/uL (0.0-0.1); BASOPHILS % (AUTO) 1 % (0-10); EOSINOPHILS # (AUTO) 0.3 10^3/uL (0.0-0.3); EOSINOPHILS % (AUTO) 3 % (0-10); HEMATOCRIT 31 % (35-52); HEMOGLOBIN 9.8 g/dL (11.5-16.0); LYMPHOCYTES # (AUTO) 1.7 10^3/uL (1.0-4.0); LYMPHOCYTES % (AUTO) 18 % (12-44); MEAN CORPUSCULAR HEMOGLOBIN 32 pg (25-34); MEAN CORPUSCULAR HGB CONC 32 g/dL (32-36); MEAN CORPUSCULAR VOLUME 100 fL (80-99); MEAN PLATELET VOLUME 12.1 fL (9.0-12.2); MONOCYTES # (AUTO) 0.9 10^3/uL (0.0-1.0); MONOCYTES % (AUTO) 9 % (0-12); NEUTROPHILS # (AUTO) 6.6 10^3/uL (1.8-7.8); NEUTROPHILS % (AUTO) 69 % (42-75); PLATELET COUNT 142 10^3/uL (130-400); WHITE BLOOD COUNT 9.6 10^3/uL (4.3-11.0)
[2023-01-16 05:58] LABS: ALBUMIN 3.3 GM/DL (3.2-4.5); BILIRUBIN,TOTAL 0.9 MG/DL (0.1-1.0); CALCIUM 8.4 MG/DL (8.5-10.1); CREATININE SERUM 1.4 MG/DL (0.60-1.30); POTASSIUM 4.1 MMOL/L (3.6-5.0); TOTAL PROTEIN 6.6 GM/DL (6.4-8.2)
[2023-01-16 08:00] VITALS: BP 134/62
[2023-01-16] MEDS: NS IV 1000 ML 1,000 ML IV SCH (09:48)
[2023-01-16] MEDS: DOCUSATE SODIUM 100 MG CAPSULE PO SCH ×2 (09:48→20:43)
[2023-01-16] MEDS: SENNOSIDES 8.6 MG (SENOKOT) TAB PO SCH ×2 (09:48→20:44)
--- NOTE | 2023-01-16 10:06 | History & Physical ---
DOWNS 01/16/23 1006: History of Present Illness History of Present Illness Reason for visit/HPI CC: cellulitis HPI: 82 y/o female with a history of psoriasis, CKD, HTN, CAD, hypothyroidism and a heart murmer presented to the ED with severe right pain foot pain. She says she first noticed a little bit of redness and pain on Thursday or Thursday on the lateral side of her foot but she said it was bearable. On 01/15/23 She was cleaning and she felt a sudden extreme pain in her foot and the inflammation had become significantly worse. The area feels warm and tender to touch. Patient stated they were not able to walk and they had no trauma, bug bites, or injuries to the area other than chronic psoriasis that is prominent on the plantar aspect of their foot. Since her arrival to the ED she has been placed on Vancomycin and Zosyn and the suspected cellulitis 2/2 to psoriasis was marked up to her ankle. She does note that her psoriasis has become much worse over the past 3 months and she has felt chills since her infection and has a mild cough. She denies a fever and chest pain. To note, she is immunosuppressed on Otezla for her psoriasis Date of Admission Jan 15, 2023 at 18:29 Date Seen by a Provider: Jan 16, 2023 Time Seen by a Provider: 09:15 I consulted on this patient on 01/16/23 09:39 Attending Physician Laurel Palma DO Admitting Physician Admitting Physician: Laurel Palma DO Attending Physician: Laurel Palma DO Consult Allergies and Home Medications Allergies Coded Allergies: adhesive tape (Verified Allergy, Unknown, 03/11/18) Patient Home Medication List Home Medication List Reviewed: No Allopurinol (Allopurinol) 100 Mg Tablet, 100 MG PO HS, (Reported) Entered as Reported by: ZUNILDA LYLE on 11/16/17 1029 Last Action: Continued Amlodipine Besylate (Amlodipine Besylate) 10 Mg Tablet, 10 MG PO DAILY, (Reported) Entered as Reported by: ZUNILDA LYLE on 11/16/17 1029 Last Action: Continued Apremilast (Otezla) 30 Mg Tablet, 30 MG PO BID, (Reported) Entered as Reported by: LIZZY REY on 01/16/23 1234 Last Action: Held Aspirin (Aspirin EC) 81 Mg Tablet.dr, 81 MG PO HS, (Reported) Entered as Reported by: LIZZY REY on 01/16/23 1234 Last Action: Continued Beta-Carotene(A) W-C & E/Min (Vision Vitamins) 1 Each Tablet, 1 EACH PO BID, (Reported) Entered as Reported by: LIZZY REY on 01/16/23 123 Last Action: Converted Cholecalciferol (Vitamin D3) (Vitamin D3) 125 Mcg (5000 Unit) Capsule, 125 MCG PO DAILY, (Reported) Entered as Reported by: LIZZY REY on 01/16/23 123 Last Action: Converted Docusate Sodium (Docusate Sodium) 100 Mg Capsule, 100 MG PO TID, (Reported) Entered as Reported by: LIZZY REY on 01/16/231233 Last Action: Continued Doxazosin Mesylate (Doxazosin Mesylate) 2 Mg Tablet, 2 MG PO BID, (Reported) Entered as Reported by: ZUNILDA LYLE on 11/16/17 1029 Last Action: Continued Furosemide (Furosemide) 20 Mg Tablet, 20 MG PO DAILY PRN for FLUID RETENTION, (Reported) Entered as Reported by: LIZZY REY on 01/16/23 123 Last Action: Held Levothyroxine Sodium (Synthroid) 125 Mcg Tablet, 125 MCG PO DAILY, (Reported) Entered as Reported by: LIZZY REY on 01/16/231233 Last Action: Continued Losartan Potassium (Losartan Potassium) 100 Mg Tablet, 100 MG PO HS, (Reported) Entered as Reported by: ZUNILDA LYLE on 11/16/17 1029 Last Action: Continued Metoclopramide HCl (Metoclopramide HCl) 10 Mg Tablet, 10 MG PO HS, (Reported) Entered as Reported by: ZUNILDA LYLE on 11/16/17 1029 Last Action: Continued Metoprolol Succinate (Metoprolol Succinate) 50 Mg Tab.er.24h, 50 MG PO DAILY, (Reported) Entered as Reported by: ZUNILDA LLYE on 11/16/17 1029 Last Action: Continued Pantoprazole Sodium (Pantoprazole Sodium) 40 Mg Tablet.dr, 40 MG PO HS, (Reported) Entered as Reported by: ZUNILDA LYLE on 03/11/18 1342 Last Action: Continued Rosuvastatin Calcium (Rosuvastatin Calcium) 20 Mg Tablet, 20 MG PO HS, (Reported) Entered as Reported by: LIZZY REY on 01/16/23 1234 Last Action: Continued Sodium Bicarbonate (Sodium Bicarbonate) 650 Mg Tablet, 1,950 MG PO BID, (Reported) Entered as Reported by: LIZZY REY on 01/16/23 1234 Last Action: Held Spironolactone (Spironolactone) 25 Mg Tablet, 25 MG PO DAILY, (Reported) Entered as Reported by: ZUNILDA LYLE on 11/16/17 102 Last Action: Continued Sucralfate (Sucralfate) 1 Gram Tablet, 1 GM PO DAILY, (Reported) Entered as Reported by: ZUNILDA LYLE on 11/16/17 102 Last Action: Held Discontinued Medications Cholecalciferol (Vitamin D3) (Vitamin D) 5,000 Unit Capsule, 5,000 UNIT PO DAILY, (Reported) Discontinued Reason: No Longer Taking Entered as Reported by: ZUNILDA LYLE on 11/16/17 102 Last Action: Discontinued Dexlansoprazole (Dexilant) 60 Mg Sacha., 60 MG PO DAILY, (Reported) Discontinued Reason: No Longer Taking Entered as Reported by: ZUNILDA LYLE on 11/16/17 102 Last Action: Discontinued Multivitamin (Multivitamins) 1 Each Tablet, 1 EACH PO DAILY, (Reported) Discontinued Reason: No Longer Taking Entered as Reported by: ZUNILDA LYLE on 11/16/17 1029 Last Action: Discontinued Oxycodone HCl/Acetaminophen (Percocet 5-325 mg Tablet) 1 Each Tablet, 1 EACH PO Q4H PRN for PAIN-MODERATE Discontinued Reason: No Longer Taking Prescribed by: NADIA CARO on 03/17/18 0731 Last Action: Discontinued Rosuvastatin Calcium (Crestor) 20 Mg Tablet, 20 MG PO HS, (Reported) Discontinued Reason: No Longer Taking Entered as Reported by: ZUNILDA LYLE on 11/16/17 1029 Last Action: Discontinued Sodium Bicarbonate (Sodium Bicarbonate) 650 Mg Tablet, 1,950 MG PO BID, (Reported) Discontinued Reason: No Longer Taking Entered as Reported by: ZUNILDA LYLE on 11/16/17 102 Last Action: Discontinued Thyroid,Pork (Thyroid) 90 Mg Tablet, 90 MG PO HS, (Reported) Discontinued Reason: No Longer Taking Entered as Reported by: ZUNILDA LYLE on 11/16/171028 Last Action: Discontinued Past Rfpmsea-Hiyvtr-Gxqjwo Hx Patient Social History Tobacco Use?: No Smoking Status: Never a Smoker Use of E-Cig and/or Vaping dev: No Substance use?: No Alcohol Use?: No Pt feels they are or have been: No Immunizations Up To Date Date of Influenza Vaccine: Feb 22, 2018 Tetanus Booster (TDap): Unknown Hepatitis A: No Hepatitis B: No PED Vaccines UTD: No Date of Pneumonia Vaccine: Feb 22, 2018 Seasonal Allergies Seasonal Allergies: No Current Status status: No status: No Advance Directives: No Advance Directive Location: Home Communicates: Verbally Primary Language: Greenlandic Preferred Spoken Language: Greenlandic Sensory deficits: Vision impairment Implanted or Applied Medical D: Orthopedic hardware Past Medical History Surgeries: Gallbladder, Hysterectomy, Nephrectomy (left kidney), Orthopedic (Right knee replacement ) Sleep Apnea Currently Using CPAP: Yes Coronary Artery Disease, Heart Murmur, High Cholesterol, Hypertension Sexually Transmitted Disease: No Renal Failure Gastroesophageal Reflux, Chronic Constipation Arthritis Hypothyroidsim Melanoma What Type of Treatment Did You: Surgical Intervention Blood Disorders: No Family Medical History Completed stroke G8 SISTER Diabetes mellitus 19 MOTHER G8 BROTHER G8 SISTER Hypertension 19 FATHER 19 MOTHER G8 BROTHER G8 SISTER Myocardial infarction 19 FATHER 19 MOTHER Parkinson's disease G8 BROTHER Respiratory disorder G8 BROTHER (lung cancer) Brother with lung cancer also had psoriasis Review of Systems Constitutional: chills; No dizziness, No fever; malaise, weakness Respiratory: cough; No dyspnea on exertion, No hemoptysis, No orthopnea, No phlegm, No short of breath, No wheezing Gastrointestinal: no symptoms reported; No abdominal pain, No constipation, No diarrhea, No dysphagia, No hematemesis, No nausea, No vomiting Skin: no symptoms reported Psychiatric/Neurological: No Symptoms Reported Physical Exam Vital Signs Vital Signs - First Documented 01/15/23 16:44 Temp 36.7 Pulse 79 Resp 16 B/P (MAP) 155/71 (99) Pulse Ox 96 O2 Delivery Room Air Capillary Refill : Height, Weight, BMI Height: 5'4.00" Weight: 212lbs. 0.0oz. 96.730656gj; 50.30 BMI Method: General Appearance: No Apparent Distress, Chronically ill, Thin Neck: Full Range of Motion, Normal Inspection, Non Tender, Supple Respiratory: Chest Non Tender, Lungs Clear, Normal Breath Sounds, No Accessory Muscle Use, No Respiratory Distress; No Crackles, No Respiratory Distress Cardiovascular: Regular Rate, Rhythm, No Edema, No Gallop, No JVD, Normal Peripheral Pulses Gastrointestinal: Normal Bowel Sounds, Non Tender, Soft Neurologic/Psychiatric: Alert, Oriented x3, No Motor/Sensory Deficits, Normal Mood/Affect, certified marine mechanic II-XII Norm as Tested; No Disoriented Skin: Normal Color, Cool Assessment/Plan Assessment and Plan Assessment: Cellulitis 2/2 psoriasis SIRS immunosuppressed CAD HTN Heart murmer CKD hypothyroidism Plan: Continue antibiotic tx Supportive care IVF monitor labs Admission Diagnosis Admission Status: Inpatient Order (span 2 midnights) Reason for Inpatient Admission: Cellulitis Clinical Quality Measures DVT/VTE Risk/Contraindication: Contraindications-Pharm: Other *list below* Contraindications-Mechi: Other *list below* Other: cellulitis of the legs LAUREL PALMA DO 01/17/23 0632: Allergies and Home Medications Allergies Coded Allergies: adhesive tape (Verified Allergy, Unknown, 03/11/18) Patient Home Medication List Allopurinol (Allopurinol) 100 Mg Tablet, 100 MG PO HS, (Reported) Entered as Reported by: ZUNILDA LYLE on 11/16/17 1029 Last Action: Continued Amlodipine Besylate (Amlodipine Besylate) 10 Mg Tablet, 10 MG PO DAILY, (Reported) Entered as Reported by: ZUNILDA LYLE on 11/16/17 1029 Last Action: Continued Apremilast (Otezla) 30 Mg Tablet, 30 MG PO BID, (Reported) Entered as Reported by: LIZZY REY on 01/16/23 1234 Last Action: Held Aspirin (Aspirin EC) 81 Mg Tablet.dr, 81 MG PO HS, (Reported) Entered as Reported by: LIZZY REY on 01/16/23 1234 Last Action: Continued Beta-Carotene(A) W-C & E/Min (Vision Vitamins) 1 Each Tablet, 1 EACH PO BID, (Reported) Entered as Reported by: LIZZY REY on 01/16/23 1234 Last Action: Converted Cholecalciferol (Vitamin D3) (Vitamin D3) 125 Mcg (5000 Unit) Capsule, 125 MCG PO DAILY, (Reported) Entered as Reported by: LIZZY REY on 01/16/23 123 Last Action: Converted Docusate Sodium (Docusate Sodium) 100 Mg Capsule, 100 MG PO TID, (Reported) Entered as Reported by: LIZZY REY on 01/16/23 123 Last Action: Continued Doxazosin Mesylate (Doxazosin Mesylate) 2 Mg Tablet, 2 MG PO BID, (Reported) Entered as Reported by: ZUNILDA LYLE on 11/16/17 1029 Last Action: Continued Furosemide (Furosemide) 20 Mg Tablet, 20 MG PO DAILY PRN for FLUID RETENTION, (Reported) Entered as Reported by: LIZZY REY on 01/16/23 123 Last Action: Held Levothyroxine Sodium (Synthroid) 125 Mcg Tablet, 125 MCG PO DAILY, (Reported) Entered as Reported by: LIZZY REY on 01/16/23 123 Last Action: Continued Losartan Potassium (Losartan Potassium) 100 Mg Tablet, 100 MG PO HS, (Reported) Entered as Reported by: ZUNILDA LYLE on 11/16/17 1029 Last Action: Continued Metoclopramide HCl (Metoclopramide HCl) 10 Mg Tablet, 10 MG PO HS, (Reported) Entered as Reported by: ZUNILDA LYLE on 11/16/17 1029 Last Action: Continued Metoprolol Succinate (Metoprolol Succinate) 50 Mg Tab.er.24h, 50 MG PO DAILY, (Reported) Entered as Reported by: ZUNILDA LYLE on 11/16/17 1029 Last Action: Continued Pantoprazole Sodium (Pantoprazole Sodium) 40 Mg Tablet.dr, 40 MG PO HS, (Reported) Entered as Reported by: ZUNILDA LYLE on 03/11/18 1342 Last Action: Continued Rosuvastatin Calcium (Rosuvastatin Calcium) 20 Mg Tablet, 20 MG PO HS, (Reported) Entered as Reported by: LIZZY REY on 01/16/23 123 Last Action: Continued Sodium Bicarbonate (Sodium Bicarbonate) 650 Mg Tablet, 1,950 MG PO BID, (Reported) Entered as Reported by: LIZZY REY on 01/16/23 1234 Last Action: Held Spironolactone (Spironolactone) 25 Mg Tablet, 25 MG PO DAILY, (Reported) Entered as Reported by: ZUNILDA LYLE on 11/16/17 102 Last Action: Continued Sucralfate (Sucralfate) 1 Gram Tablet, 1 GM PO DAILY, (Reported) Entered as Reported by: ZUNILDA LYLE on 11/16/17 102 Last Action: Held Discontinued Medications Cholecalciferol (Vitamin D3) (Vitamin D) 5,000 Unit Capsule, 5,000 UNIT PO DAILY, (Reported) Discontinued Reason: No Longer Taking Entered as Reported by: ZUNILDA LYLE on 11/16/17 102 Last Action: Discontinued Dexlansoprazole (Dexilant) 60 Mg Sacha., 60 MG PO DAILY, (Reported) Discontinued Reason: No Longer Taking Entered as Reported by: ZUNILDA LYLE on 11/16/17 102 Last Action: Discontinued Multivitamin (Multivitamins) 1 Each Tablet, 1 EACH PO DAILY, (Reported) Discontinued Reason: No Longer Taking Entered as Reported by: ZUNILDA LYLE on 11/16/17 102 Last Action: Discontinued Oxycodone HCl/Acetaminophen (Percocet 5-325 mg Tablet) 1 Each Tablet, 1 EACH PO Q4H PRN for PAIN-MODERATE Discontinued Reason: No Longer Taking Prescribed by: NADIA CARO on 03/17/18 0731 Last Action: Discontinued Rosuvastatin Calcium (Crestor) 20 Mg Tablet, 20 MG PO HS, (Reported) Discontinued Reason: No Longer Taking Entered as Reported by: ZUNILDA LYLE on 11/16/17 102 Last Action: Discontinued Sodium Bicarbonate (Sodium Bicarbonate) 650 Mg Tablet, 1,950 MG PO BID, (Reported) Discontinued Reason: No Longer Taking Entered as Reported by: ZUNILDA LYLE on 11/16/17 102 Last Action: Discontinued Thyroid,Pork (Thyroid) 90 Mg Tablet, 90 MG PO HS, (Reported) Discontinued Reason: No Longer Taking Entered as Reported by: ZUNILDA LYLE on 11/16/17 102 Last Action: Discontinued Past Uiqrbdr-Dkicbb-Oykufr Hx Family Medical History Completed stroke G8 SISTER Diabetes mellitus 19 MOTHER G8 BROTHER G8 SISTER Hypertension 19 FATHER 19 MOTHER G8 BROTHER G8 SISTER Myocardial infarction 19 FATHER 19 MOTHER Parkinson's disease G8 BROTHER Respiratory disorder G8 BROTHER (lung cancer) Supervisory-Addendum Brief Verification & Attestation Participated in pt care: history, MDM, physical Personally performed: exam, history, MDM, supervision of care Care discussed with: Medical Student Procedures: n/a Results interpretation: Verified all documentation Verification and Attestation of Medical Student E/M Service A medical student performed and documented this service in my presence. I reviewed and verified all information documented by the medical student and made modifications to such information, when appropriate. I personally performed the physical exam and medical decision making. Laurel Palma, Jan 17, 2023,06:32 DOWNS Jan 16, 2023 10:06 LAUREL PALMA DO Jan 17, 2023 06:32
[2023-01-16 12:00] VITALS: BP 152/77
[2023-01-16] MEDS ORDERED: LEVO125T PO (12:34)
[2023-01-16] MEDS ORDERED: ROSU20TA73 PO (12:34)
[2023-01-16] MEDS ORDERED: CHOL500050 PO (12:34)
[2023-01-16] MEDS ORDERED: NF-SODBICA PO (12:34)
[2023-01-16] MEDS ORDERED: APRE30TA5 PO (12:34)
[2023-01-16] MEDS ORDERED: FURO20TA4 PO (12:34)
[2023-01-16] MEDS ORDERED: ASPI-1238 PO (12:34)
[2023-01-16] MEDS ORDERED: BETA1TAB12 PO (12:34)
[2023-01-16] MEDS ORDERED: DOCU100C37 PO (12:34)
[2023-01-16 16:00] VITALS: BP 171/79
[2023-01-16] MEDS ORDERED: NS IV SCH (19:30)
[2023-01-16] MEDS ORDERED: VANCOMYCIN IV SCH (19:30)
[2023-01-16] MEDS: VANCOMYCIN 1 GM/NS 250 ML IVPB IV SCH ×2 (20:25)
[2023-01-16] MEDS: ALLOPURINOL 100 MG TABLET PO SCH (20:27)
[2023-01-16] MEDS: ROSUVASTATIN 20 MG TABLET PO SCH (20:27)
[2023-01-16] MEDS: METOCLOPRAMIDE 10 MG TABLET PO SCH (20:27)
[2023-01-16] MEDS: ASPIRIN enteric coated 81MG TABLET PO SCH (20:27)
[2023-01-16] MEDS: PANTOPRAZOLE 40 MG TABLET PO SCH (20:27)
[2023-01-16] MEDS: LOSARTAN 100 MG TABLET PO SCH (20:27)
[2023-01-16] MEDS: ACETAMINOPHEN 325 MG TABLET PO PRN (20:36)
[2023-01-16 20:39] VITALS: BP 150/65
[2023-01-16] MEDS: MELATONIN 3 MG TABLET PO PRN (20:42)
[2023-01-16] MEDS: ENOXAPARIN 40 MG/0.4 ML SYRINGE SC SCH (20:44)
[2023-01-17] VITALS (11 sets, daily range): BP systolic 101–142; BP diastolic 60–96
[2023-01-17] MEDS: PIPERACILLIN/Tazobactam 4.5 GM in NS (IVPB) 100 ML 100 ML IV SCH ×3 (02:00→18:38)
[2023-01-17] MEDS: LEVOTHYROXINE 125 MCG TABLET PO SCH (05:11)
[2023-01-17] MEDS: THERAPEUTIC MULTIVITAMIN W/MINERALS TABLET PO SCH (05:11)
[2023-01-17 05:27] LABS: BASOPHILS % (AUTO) 0 % (0-10); EOSINOPHILS # (AUTO) 0.4 10^3/uL (0.0-0.3); EOSINOPHILS % (AUTO) 4 % (0-10); HEMATOCRIT 29 % (35-52); HEMOGLOBIN 9.2 g/dL (11.5-16.0); LYMPHOCYTES # (AUTO) 1.7 10^3/uL (1.0-4.0); LYMPHOCYTES % (AUTO) 17 % (12-44); MEAN CORPUSCULAR HEMOGLOBIN 32 pg (25-34); MEAN CORPUSCULAR HGB CONC 32 g/dL (32-36); MEAN CORPUSCULAR VOLUME 101 fL (80-99); MEAN PLATELET VOLUME 11.8 fL (9.0-12.2); MONOCYTES # (AUTO) 0.8 10^3/uL (0.0-1.0); MONOCYTES % (AUTO) 8 % (0-12); NEUTROPHILS # (AUTO) 6.8 10^3/uL (1.8-7.8); NEUTROPHILS % (AUTO) 70 % (42-75); PLATELET COUNT 145 10^3/uL (130-400); WHITE BLOOD COUNT 9.7 10^3/uL (4.3-11.0)
[2023-01-17 05:45] LABS: CALCIUM 8.3 MG/DL (8.5-10.1); CREATININE SERUM 1.25 MG/DL (0.60-1.30); POTASSIUM 3.8 MMOL/L (3.6-5.0); TOTAL PROTEIN 6.2 GM/DL (6.4-8.2)
[2023-01-17] MEDS: amLODIPine 10 MG TABLET PO SCH (08:48)
[2023-01-17] MEDS: VITAMIN D3 125 MCG (5,000 UNITS) TABLET PO SCH (08:48)
[2023-01-17] MEDS: DOCUSATE SODIUM 100 MG CAPSULE PO SCH ×3 (08:49→20:29)
[2023-01-17] MEDS: SPIRONOLACTONE 25 MG (ALDACTONE) TAB PO SCH (08:49)
[2023-01-17] MEDS: SENNOSIDES 8.6 MG (SENOKOT) TAB PO SCH ×2 (08:49→20:30)
--- NOTE | 2023-01-17 15:32 | Progress Note - Hospitalist ---
Subjective HPI/CC On Admission Date Seen by Provider: Jan 17, 2023 Time Seen by Provider: 12:15 Subjective/Events-last exam She continues to have pain in her right foot. She feels like it is getting better. She still has redness and swelling. Focused Exam Lactate Level 01/15/23 17:15: Lactic Acid Level 0.97 Objective Exam Vital Signs Vital Signs Date Time Temp Pulse Resp B/P (MAP) Pulse Ox O2 Delivery O2 Flow Rate FiO2 01/17/23 11:30 37.8 84 20 136/60 (85) 94 Room Air Capillary Refill : General Appearance: No Apparent Distress, Obese Respiratory: Lungs Clear, No Respiratory Distress Cardiovascular: Regular Rate, Rhythm, No Murmur Gastrointestinal: Normal Bowel Sounds, Soft Extremity: Inflammation (right foot), Swelling Neurologic/Psychiatric: Alert, Normal Mood/Affect Skin: Warm/Dry, Erythema Results/Procedures Lab Laboratory Tests 01/17/23 04:55 Patient resulted labs reviewed. Imaging: Reviewed Imaging Report Assessment/Plan Assessment and Plan Assess & Plan/Chief Complaint Sepsis Cellulitis Psoriasis Immunocompromised MARAL Continue Vanc and Zosyn IV fluids HTN CAD Hypothyroidism CKD Continue home meds as able DVT prophylaxis: Lovenox Diagnosis/Problems Diagnosis/Problems (1) Sepsis due to cellulitis Status: Acute (2) MARAL (acute kidney injury) Status: Acute (3) Psoriasis Status: Chronic (4) Immunocompromised Status: Chronic (5) HTN (hypertension) Status: Chronic (6) CAD (coronary artery disease) Status: Chronic (7) CKD (chronic kidney disease) Status: Chronic Qualifiers: Chronic kidney disease stage: stage 3 (moderate) Chronic kidney disease stage 3 subtype: stage 3a (GFR 45-59) Qualified Codes: N18.31 - Chronic kidney disease, stage 3a (8) Hypothyroidism Status: Chronic Clinical Quality Measures DVT/VTE Risk/Contraindication: Contraindications-Pharm: Other *list below* Contraindications-Mechi: Other *list below* Other: cellulitis of the legs ALEKSANDR RODRIGUEZ MD Jan 17, 2023 15:32
[2023-01-17] MEDS: VANCOMYCIN 1 GM/NS 250 ML IVPB IV SCH ×2 (18:39)
[2023-01-17] MEDS: ASPIRIN enteric coated 81MG TABLET PO SCH (20:20)
[2023-01-17] MEDS: ACETAMINOPHEN 325 MG TABLET PO PRN (20:20)
[2023-01-17] MEDS: METOCLOPRAMIDE 10 MG TABLET PO SCH (20:20)
[2023-01-17] MEDS: ALLOPURINOL 100 MG TABLET PO SCH (20:20)
[2023-01-17] MEDS: LOSARTAN 100 MG TABLET PO SCH (20:21)
[2023-01-17] MEDS: ROSUVASTATIN 20 MG TABLET PO SCH (20:21)
[2023-01-17] MEDS: PANTOPRAZOLE 40 MG TABLET PO SCH (20:21)
[2023-01-17] MEDS: MELATONIN 3 MG TABLET PO PRN (20:25)
[2023-01-17] MEDS: ENOXAPARIN 40 MG/0.4 ML SYRINGE SC SCH (20:30)
[2023-01-17] MEDS ORDERED: RT-ALBUTEROL SULF 2.5 MG/3 ML PRE-MIX VIAL INH PRN (20:45)
--- NOTE | 2023-01-17 20:51 | Diagnostic Imaging Report ---
CHEST 1 VIEW, AP/PA ONLY INDICATION: . Respiratory failure COMPARISON: None. FINDINGS: Lungs: Normal lung volume perihilar and bibasilar airspace opacities. Pleura: No pleural effusion or pneumothorax. Heart and Mediastinum: Cardiomegaly with pulmonary vascular congestion. Osseous Structures and Soft Tissues: No acute osseous abnormality. Normal soft tissues. IMPRESSION: Perihilar and bibasilar airspace opacities may represent pulmonary edema or infection. Cardiomegaly with pulmonary vascular congestion. Dictated by: Dictated on workstation # [id number]
[2023-01-17] MEDS ORDERED: FUROSEMIDE INJECTION 40 MG/4 ML VIAL IVP ONE (22:30)
[2023-01-18] MEDS: PIPERACILLIN/Tazobactam 4.5 GM in NS (IVPB) 100 ML 100 ML IV SCH ×3 (02:03→18:10)
[2023-01-18 03:15] VITALS: BP 112/52
[2023-01-18 06:04] LABS: BASOPHILS # (AUTO) 0.1 10^3/uL (0.0-0.1); BASOPHILS % (AUTO) 1 % (0-10); EOSINOPHILS # (AUTO) 0.3 10^3/uL (0.0-0.3); EOSINOPHILS % (AUTO) 4 % (0-10); HEMATOCRIT 29 % (35-52); HEMOGLOBIN 9.4 g/dL (11.5-16.0); LYMPHOCYTES # (AUTO) 1.8 10^3/uL (1.0-4.0); LYMPHOCYTES % (AUTO) 22 % (12-44); MEAN CORPUSCULAR HEMOGLOBIN 32 pg (25-34); MEAN CORPUSCULAR HGB CONC 32 g/dL (32-36); MEAN CORPUSCULAR VOLUME 100 fL (80-99); MEAN PLATELET VOLUME 11.5 fL (9.0-12.2); MONOCYTES # (AUTO) 0.8 10^3/uL (0.0-1.0); MONOCYTES % (AUTO) 10 % (0-12); NEUTROPHILS # (AUTO) 5.2 10^3/uL (1.8-7.8); NEUTROPHILS % (AUTO) 64 % (42-75); PLATELET COUNT 152 10^3/uL (130-400); WHITE BLOOD COUNT 8.2 10^3/uL (4.3-11.0)
[2023-01-18 06:30] LABS: BILIRUBIN,TOTAL 1.1 MG/DL (0.1-1.0); CALCIUM 8.3 MG/DL (8.5-10.1); CREATININE SERUM 1.57 MG/DL (0.60-1.30); POTASSIUM 3.8 MMOL/L (3.6-5.0); TOTAL PROTEIN 6.4 GM/DL (6.4-8.2)
[2023-01-18] MEDS: LEVOTHYROXINE 125 MCG TABLET PO SCH (07:01)
[2023-01-18] MEDS: THERAPEUTIC MULTIVITAMIN W/MINERALS TABLET PO SCH (07:01)
[2023-01-18 07:50] VITALS: BP 135/62
[2023-01-18] MEDS ORDERED: VANCOMYCIN INJECTION 0.1 MG in NS (IVPB) 250 ML 250 ML IV SCH (08:30)
[2023-01-18] MEDS ORDERED: VANCOMYCIN 1 GM/NS 250 ML IVPB IV SCH ×4 (08:45→20:00)
[2023-01-18] MEDS: DOCUSATE SODIUM 100 MG CAPSULE PO SCH ×3 (09:29→21:20)
[2023-01-18] MEDS: SENNOSIDES 8.6 MG (SENOKOT) TAB PO SCH ×2 (09:29→21:20)
[2023-01-18] MEDS: VITAMIN D3 125 MCG (5,000 UNITS) TABLET PO SCH (09:29)
[2023-01-18] MEDS: SPIRONOLACTONE 25 MG (ALDACTONE) TAB PO SCH (09:29)
[2023-01-18] MEDS: amLODIPine 10 MG TABLET PO SCH (09:29)
[2023-01-18] MEDS: NS IV 1000 ML 1,000 ML IV SCH (09:37)
[2023-01-18 11:40] VITALS: BP 120/64
--- NOTE | 2023-01-18 13:43 | Progress Note - Hospitalist ---
Subjective HPI/CC On Admission Date Seen by Provider: Jan 18, 2023 Time Seen by Provider: 10:50 Subjective/Events-last exam She is feeling better. She is not having any shortness of breath. Her foot is feeling better. She denies pain. Focused Exam Lactate Level 01/15/23 17:15: Lactic Acid Level 0.97 Objective Exam Vital Signs Vital Signs Date Time Temp Pulse Resp B/P (MAP) Pulse Ox O2 Delivery O2 Flow Rate FiO2 01/18/23 11:40 36.5 75 18 120/64 (82) 96 Room Air 01/18/23 10:55 0.00 01/17/23 20:26 21 Capillary Refill : General Appearance: No Apparent Distress, Obese Respiratory: Lungs Clear, No Respiratory Distress Cardiovascular: Regular Rate, Rhythm, Systolic Murmur Gastrointestinal: Normal Bowel Sounds, Soft Extremity: Inflammation (right foot), Swelling (tenderness) Neurologic/Psychiatric: Alert, Normal Mood/Affect Skin: Warm/Dry, Erythema Results/Procedures Lab Laboratory Tests 01/18/23 05:34 Patient resulted labs reviewed. Imaging: Reviewed Imaging Report Assessment/Plan Assessment and Plan Assess & Plan/Chief Complaint Sepsis Cellulitis Psoriasis MARAL Continue Vanc and Zosyn Gentle IV fluids ELLEN Respiratory distress Pulmonary edema CPAP at night MAT protocol HTN CAD Hypothyroidism CKD Continue home meds as able DVT prophylaxis: Lovenox Diagnosis/Problems Diagnosis/Problems (1) Sepsis due to cellulitis Status: Acute (2) MARAL (acute kidney injury) Status: Acute (3) Psoriasis Status: Chronic (4) HTN (hypertension) Status: Chronic (5) CAD (coronary artery disease) Status: Chronic (6) CKD (chronic kidney disease) Status: Chronic Qualifiers: Chronic kidney disease stage: stage 3 (moderate) Chronic kidney disease stage 3 subtype: stage 3a (GFR 45-59) Qualified Codes: N18.31 - Chronic kidney disease, stage 3a (7) Hypothyroidism Status: Chronic Clinical Quality Measures DVT/VTE Risk/Contraindication: Contraindications-Pharm: Other *list below* Contraindications-Mechi: Other *list below* Other: cellulitis of the legs ALEKSANDR RODRIGUEZ MD Jan 18, 2023 13:43
[2023-01-18 15:17] VITALS: BP 138/65
[2023-01-18 19:22] VITALS: BP 130/58
[2023-01-18] MEDS: ALLOPURINOL 100 MG TABLET PO SCH (21:19)
[2023-01-18] MEDS: ROSUVASTATIN 20 MG TABLET PO SCH (21:19)
[2023-01-18] MEDS: ENOXAPARIN 40 MG/0.4 ML SYRINGE SC SCH (21:19)
[2023-01-18] MEDS: ASPIRIN enteric coated 81MG TABLET PO SCH (21:20)
[2023-01-18] MEDS: LOSARTAN 100 MG TABLET PO SCH (21:20)
[2023-01-18] MEDS: PANTOPRAZOLE 40 MG TABLET PO SCH (21:21)
[2023-01-18] MEDS: METOCLOPRAMIDE 10 MG TABLET PO SCH (21:21)
[2023-01-18 23:36] VITALS: BP 124/63
[2023-01-19] MEDS: PIPERACILLIN/Tazobactam 4.5 GM in NS (IVPB) 100 ML 100 ML IV SCH ×2 (01:56→10:29)
[2023-01-19] MEDS: NS IV 1000 ML 1,000 ML IV SCH (01:56)
[2023-01-19 03:40] VITALS: BP 128/58
[2023-01-19 06:01] LABS: BASOPHILS # (AUTO) 0.1 10^3/uL (0.0-0.1); BASOPHILS % (AUTO) 1 % (0-10); EOSINOPHILS # (AUTO) 0.4 10^3/uL (0.0-0.3); EOSINOPHILS % (AUTO) 7 % (0-10); HEMATOCRIT 29 % (35-52); HEMOGLOBIN 9.1 g/dL (11.5-16.0); LYMPHOCYTES # (AUTO) 1.5 10^3/uL (1.0-4.0); LYMPHOCYTES % (AUTO) 22 % (12-44); MEAN CORPUSCULAR HEMOGLOBIN 32 pg (25-34); MEAN CORPUSCULAR HGB CONC 32 g/dL (32-36); MEAN CORPUSCULAR VOLUME 101 fL (80-99); MONOCYTES # (AUTO) 0.7 10^3/uL (0.0-1.0); MONOCYTES % (AUTO) 11 % (0-12); NEUTROPHILS % (AUTO) 60 % (42-75); PLATELET COUNT 177 10^3/uL (130-400); WHITE BLOOD COUNT 6.7 10^3/uL (4.3-11.0)
[2023-01-19 06:21] LABS: ALBUMIN 3.1 GM/DL (3.2-4.5); BILIRUBIN,TOTAL 0.8 MG/DL (0.1-1.0); CALCIUM 8.3 MG/DL (8.5-10.1); CREATININE SERUM 1.63 MG/DL (0.60-1.30); POTASSIUM 3.6 MMOL/L (3.6-5.0); TOTAL PROTEIN 6.2 GM/DL (6.4-8.2)
[2023-01-19] MEDS: THERAPEUTIC MULTIVITAMIN W/MINERALS TABLET PO SCH (06:31)
[2023-01-19] MEDS: LEVOTHYROXINE 125 MCG TABLET PO SCH (06:31)
[2023-01-19 07:43] VITALS: BP 135/83
--- NOTE | 2023-01-19 08:06 | Physician Query-Final Dx ---
Final Diagnosis Give Final Diagnosis Please give Final Diagnosis The medical record reflects the following clinical scenario: History/Risk factors: Admitted with Cellulitis secondary to Psoriasis, with "SIRS" "immunosuppressed on Otezla for her psoriasis" Clinical Findings: Admission VS/LABS: HR 79, RR 16, BP 155/71, SpO2 96% sat on room air, T 36.7, WBC 9.8, lactic acid 0.97, Spiking fevers up to 38.6 approx. 24 to 48 hours after admission, RR increased to 22-24 and HR occasionally 90-110 during this time frame also. Treatment: ER: Normal saline 1 L, Vancomycin IV, Zosyn IV, Question: Can you further specify Sepsis per the clinical indicators above? Please document response in the Progress Notes or Discharge Summary. Sepsis due to cellulitis, Present On Admission Sepsis due to cellulitis, Not Present on Admission Other, with explanation of clinical findings Clinically undetermined, no explanation for clinical findings In responding to this query, please exercise your independent professional judgment. The purpose of this communication is to more accurately reflect the complexity of your patients condition. The fact that a question is asked does not imply that any particular answer is desired or expected. Thank you for timely response to this clarification. Stefanie Duke MSN, RN Clinical Returned Goods Receiving Clerk STEFANIE DUKE Jan 19, 2023 08:06
[2023-01-19] MEDS ORDERED: AMOX1TAB12 PO (10:18)
--- NOTE | 2023-01-19 10:19 | Discharge Summary ---
Diagnosis/Chief Complaint Date of Admission Jan 15, 2023 at 18:29 Date of Discharge Discharge Date: Jan 19, 2023 Discharge Diagnosis Assessment: Cellulitis 2/2 psoriasis Sepsis immunosuppressed on Otezla CAD HTN Heart murmur CKD Hypothyroidism Acute hypoxia episode ELLEN on CPAP PHTN on ECHO Discharge Summary Discharge Physical Examination Allergies: Coded Allergies: adhesive tape (Verified Allergy, Unknown, 03/11/18) Vitals & I&Os Vital Signs Date Time Temp Pulse Resp B/P (MAP) Pulse Ox O2 Delivery O2 Flow Rate FiO2 01/19/23 11:19 36.9 81 18 132/71 (91) 97 Room Air 01/18/23 19:30 0.00 01/17/23 20:26 21 General Appearance: Alert, Oriented X3, Cooperative Respiratory: Clear to Auscultation Cardiovascular: Regular Rate Skin: Other (resolving right dorsum foot edema and cellulitis) Psych/Mental Status: Mental Status NL Hospital Course Was the Problem List Reviewed?: Yes Uneventful course after she was admitted for sepsis from right foot cellulitis from psoriasis complication while on Otezla immunusuppressant. IV abx maintained along with gentle IVF. Patient did have an episode of hypoxia and acute resp failure but responded to Lasix and resuming use of CPAP as she does at home. ECHO revealed PHTN but she sees Cardiology Dr Plaza in 1 month. Solo kidney monitored closely and her creat remained stable at MO. She will complete Augmentin as outpatient. Dr Adriana Nascimento will be managing the Otezla. Labs (last 24 hrs) Laboratory Tests 01/15/23 17:15: White Blood Count 9.8, Red Blood Count 2.99L, Hemoglobin 9.7L, Hematocrit 31L, Mean Corpuscular Volume 102H, Mean Corpuscular Hemoglobin 32, Mean Corpuscular Hemoglobin Concent 32, Red Cell Distribution Width 14.5, Platelet Count 144, Mean Platelet Volume 11.6, Immature Granulocyte % (Auto) 0, Neutrophils (%) (Auto) 67, Lymphocytes (%) (Auto) 19, Monocytes (%) (Auto) 11, Eosinophils (%) (Auto) 3, Basophils (%) (Auto) 0, Neutrophils # (Auto) 6.5, Lymphocytes # (Auto) 1.9, Monocytes # (Auto) 1.0, Eosinophils # (Auto) 0.3, Basophils # (Auto) 0.0, Immature Granulocyte # (Auto) 0.0, Sodium Level 141, Potassium Level 3.7, C hloride Level 110H, Carbon Dioxide Level 23, Anion Gap 8, Blood Urea Nitrogen 28H, Creatinine 1.73H, Estimat Glomerular Filtration Rate 30, BUN/Creatinine Ratio 16, Glucose Level 134H, Lactic Acid Level 0.97, Uric Acid 5.5, Calcium Level 8.3L, Corrected Calcium 8.9, Total Bilirubin 0.5, Aspartate Amino Transf (AST/SGOT) 17, Alanine Aminotransferase (ALT/SGPT) 15, Alkaline Phosphatase 72, C-Reactive Protein High Sensitivity 9.29H, Total Protein 6.5, Albumin 3.3 01/16/23 05:21: White Blood Count 9.6, Red Blood Count 3.05L, Hemoglobin 9.8L, Hematocrit 31L, Mean Corpuscular Volume 100H, Mean Corpuscular Hemoglobin 32, Mean Corpuscular Hemoglobin Concent 32, Red Cell Distribution Width 14.5, Platelet Count 142, Mean Platelet Volume 12.1, Immature Granulocyte % (Auto) 0, Neutrophils (%) (Auto) 69, Lymphocytes (%) (Auto) 18, Monocytes (%) (Auto) 9, Eosinophils (%) (Auto) 3, Basophils (%) (Auto) 1, Neutrophils # (Auto) 6.6, Lymphocytes # (Auto) 1.7, Monocytes # (Auto) 0.9, Eosinophils # (Auto) 0.3, Basophils # (Auto) 0.1, Immature Granulocyte # (Auto) 0.0, Sodium Level 144, Potassium Level 4.1, Chloride Level 113H, Carbon Dioxide Level 20L, Anion Gap 11, Blood Urea Nitrogen 22H, Creatinine 1.40H, Estimat Glomerular Filtration Rate 38, BUN/Creatinine Ratio 16, Glucose Level 115H, Calcium Level 8.4L, Corrected Calcium 9.0, Total Bilirubin 0.9, Aspartate Amino Transf (AST/SGOT) 17, Alanine Aminotransferase (ALT/SGPT) 15, Alkaline Phosphatase 70, Total Protein 6.6, Albumin 3.3 01/17/23 04:55: White Blood Count 9.7, Red Blood Count 2.87L, Hemoglobin 9.2L, Hematocrit 29L, Mean Corpuscular Volume 101H, Mean Corpuscular Hemoglobin 32, Mean Corpuscular Hemoglobin Concent 32, Red Cell Distribution Width 14.3, Platelet Count 145, Mean Platelet Volume 11.8, Immature Granulocyte % (Auto) 0, Neutrophils (%) (Auto) 70, Lymphocytes (%) (Auto) 17, Monocytes (%) (Auto) 8, Eosinophils (%) (Auto) 4, Basophils (%) (Auto) 0, Neutrophils # (Auto) 6.8, Lymphocytes # (Auto) 1.7, Monocytes # (Auto) 0.8, Eosinophils # (Auto) 0.4H, Basophils # (Auto) 0.0, Immature Granulocyte # (Auto) 0.0, Sodium Level 142, Potassium Level 3.8, Chloride Level 114H, Carbon Dioxide Level 21, Anion Gap 7, Blood Urea Nitrogen 17, Creatinine 1.25, Estimat Glomerular Filtration Rate 44, BUN/Creatinine Ratio 14, Glucose Level 121H, Calcium Level 8.3L, Corrected Calcium 9.1, Total Bilirubin 1.0, Aspartate Amino Transf (AST/SGOT) 17, Alanine Aminotransferase (ALT/SGPT) 14, Alkaline Phosphatase 65, Total Protein 6.2L, Albumin 3.0L 01/18/23 05:34: White Blood Count 8.2, Red Blood Count 2.91L, Hemoglobin 9.4L, Hematocrit 29L, Mean Corpuscular Volume 100H, Mean Corpuscular Hemoglobin 32, Mean Corpuscular Hemoglobin Concent 32, Red Cell Distribution Width 14.3, Platelet Count 152, Mean Platelet Volume 11.5, Immature Granulocyte % (Auto) 0, Neutrophils (%) (Auto) 64, Lymphocytes (%) (Auto) 22, Monocytes (%) (Auto) 10, Eosinophils (%) (Auto) 4, Basophils (%) (Auto) 1, Neutrophils # (Auto) 5.2, Lymphocytes # (Auto) 1.8, Monocytes # (Auto) 0.8, Eosinophils # (Auto) 0.3, Basophils # (Auto) 0.1, Immature Granulocyte # (Auto) 0.0, Sodium Level 142, Potassium Level 3.8, Chloride Level 112H, Carbon Dioxide Level 21, Anion Gap 9, Blood Urea Nitrogen 21H, Creatinine 1.57H, Estimat Glomerular Filtration Rate 33, BUN/Creatinine Ratio 13, Glucose Level 111H, Calcium Level 8.3L, Corrected Calcium 9.1, Total Bilirubin 1.1H, Aspartate Amino Transf (AST/SGOT) 17, Alanine Aminotransferase (ALT/SGPT) 14, Alkaline Phosphatase 61, Total Protein 6.4, Albumin 3.0L 01/19/23 05:45: White Blood Count 6.7, Red Blood Count 2.85L, Hemoglobin 9.1L, Hematocrit 29L, Mean Corpuscular Volume 101H, Mean Corpuscular Hemoglobin 32, Mean Corpuscular Hemoglobin Concent 32, Red Cell Distribution Width 14.0, Platelet Count 177, Mean Platelet Volume 11.0, Immature Granulocyte % (Auto) 0, Neutrophils (%) (Auto) 60, Lymphocytes (%) (Auto) 22, Monocytes (%) (Auto) 11, Eosinophils (%) (Auto) 7, Basophils (%) (Auto) 1, Neutrophils # (Auto) 4.0, Lymphocytes # (Auto) 1.5, Monocytes # (Auto) 0.7, Eosinophils # (Auto) 0.4H, Basophils # (Auto) 0.1, Immature Granulocyte # (Auto) 0.0, Sodium Level 143, Potassium Level 3.6, Chloride Level 115H, Carbon Dioxide Level 20L, Anion Gap 8, Blood Urea Nitrogen 20H, Creatinine 1.63H, Estimat Glomerular Filtration Rate 32, BUN/Creatinine Ratio 12, Glucose Level 112H, Calcium Level 8.3L, Corrected Calcium 9.0, Total Bilirubin 0.8, Aspartate Amino Transf (AST/SGOT) 19, Alanine Aminotransferase (ALT/SGPT) 14, Alkaline Phosphatase 63, Total Protein 6.2L, Albumin 3.1L Microbiology 01/15/23 Blood Culture - Preliminary, Resulted No growth Pending Labs Microbiology Date/Time Source Procedure Growth Status 01/15/23 18:18 Peripheral Right Wrist Blood Culture - Preliminary No growth Resulted 01/15/23 17:15 Peripheral Left Forearm Blood Culture - Preliminary No growth Resulted Laboratory Tests 01/15/23 17:15: White Blood Count 9.8, Red Blood Count 2.99, Hemoglobin 9.7, Hematocrit 31, Mean Corpuscular Volume 102, Mean Corpuscular Hemoglobin 32, Mean Corpuscular Hemoglobin Concent 32, Red Cell Distribution Width 14.5, Platelet Count 144, Mean Platelet Volume 11.6, Immature Granulocyte % (Auto) 0, Neutrophils (%) (Auto) 67, Lymphocytes (%) (Auto) 19, Monocytes (%) (Auto) 11, Eosinophils (%) (Auto) 3, Basophils (%) (Auto) 0, Neutrophils # (Auto) 6.5, Lymphocytes # (Auto) 1.9, Monocytes # (Auto) 1.0, Eosinophils # (Auto) 0.3, Basophils # (Auto) 0.0, Immature Granulocyte # (Auto) 0.0, Sodium Level 141, Potassium Level 3.7, Chloride Level 110, Carbon Dioxide Level 23, Anion Gap 8, Blood Urea Nitrogen 28, Creatinine 1.73, Estimat Glomerular Filtration Rate 30, BUN/Creatinine Ratio 16, Glucose Level 134, Lactic Acid Level 0.97, Uric Acid 5.5, Calcium Level 8.3, Corrected Calcium 8.9, Total Bilirubin 0.5, Aspartate Amino Transf (AST/SGOT) 17, Alanine Aminotransferase (ALT/SGPT) 15, Alkaline Phosphatase 72, C-Reactive Protein High Sensitivity 9.29, Total Protein 6.5, Albumin 3.3 01/16/23 05:21: White Blood Count 9.6, Red Blood Count 3.05, Hemoglobin 9.8, Hematocrit 31, Mean Corpuscular Volume 100, Mean Corpuscular Hemoglobin 32, Mean Corpuscular Hemoglobin Concent 32, Red Cell Distribution Width 14.5, Platelet Count 142, Mean Platelet Volume 12.1, Immature Granulocyte % (Auto) 0, Neutrophils (%) (Auto) 69, Lymphocytes (%) (Auto) 18, Monocytes (%) (Auto) 9, Eosinophils (%) (Auto) 3, Basophils (%) (Auto) 1, Neutrophils # (Auto) 6.6, Lymphocytes # (Auto) 1.7, Monocytes # (Auto) 0.9, Eosinophils # (Auto) 0.3, Basophils # (Auto) 0.1, Immature Granulocyte # (Auto) 0.0, Sodium Level 144, Potassium Level 4.1, Chloride Level 113, Carbon Dioxide Level 20, Anion Gap 11, Blood Urea Nitrogen 22, Creatinine 1.40, Estimat Glomerular Filtration Rate 38, BUN/Creatinine Ratio 16, Glucose Level 115, Calcium Level 8.4, Corrected Calcium 9.0, Total Bilirubin 0.9, Aspartate Amino Transf (AST/SGOT) 17, Alanine Aminotransferase (ALT/SGPT) 15, Alkaline Phosphatase 70, Total Protein 6.6, Albumin 3.3 01/17/23 04:55: White Blood Count 9.7, Red Blood Count 2.87, Hemoglobin 9.2, Hematocrit 29, Mean Corpuscular Volume 101, Mean Corpuscular Hemoglobin 32, Mean Corpuscular Hemoglobin Concent 32, Red Cell Distribution Width 14.3, Platelet Count 145, Mean Platelet Volume 11.8, Immature Granulocyte % (Auto) 0, Neutrophils (%) (Auto) 70, Lymphocytes (%) (Auto) 17, Monocytes (%) (Auto) 8, Eosinophils (%) (Auto) 4, Basophils (%) (Auto) 0, Neutrophils # (Auto) 6.8, Lymphocytes # (Auto) 1.7, Monocytes # (Auto) 0.8, Eosinophils # (Auto) 0.4, Basophils # (Auto) 0.0, Immature Granulocyte # (Auto) 0.0, Sodium Level 142, Potassium Level 3.8, Chloride Level 114, Carbon Dioxide Level 21, Anion Gap 7, Blood Urea Nitrogen 17, Creatinine 1.25, Estimat Glomerular Filtration Rate 44, BUN/Creatinine Ratio 14, Glucose Level 121, Calcium Level 8.3, Corrected Calcium 9.1, Total Bilirubin 1.0, Aspartate Amino Transf (AST/SGOT) 17, Alanine Aminotransferase (ALT/SGPT) 14, Alkaline Phosphatase 65, Total Protein 6.2, Albumin 3.0 01/18/23 05:34: White Blood Count 8.2, Red Blood Count 2.91, Hemoglobin 9.4, Hematocrit 29, Mean Corpuscular Volume 100, Mean Corpuscular Hemoglobin 32, Mean Corpuscular Hemoglobin Concent 32, Red Cell Distribution Width 14.3, Platelet Count 152, Mean Platelet Volume 11.5, Immature Granulocyte % (Auto) 0, Neutrophils (%) (Auto) 64, Lymphocytes (%) (Auto) 22, Monocytes (%) (Auto) 10, Eosinophils (%) (Auto) 4, Basophils (%) (Auto) 1, Neutrophils # (Auto) 5.2, Lymphocytes # (Auto) 1.8, Monocytes # (Auto) 0.8, Eosinophils # (Auto) 0.3, Basophils # (Auto) 0.1, Immature Granulocyte # (Auto) 0.0, Sodium Level 142, Potassium Level 3.8, Chloride Level 112, Carbon Dioxide Level 21, Anion Gap 9, Blood Urea Nitrogen 21, Creatinine 1.57, Estimat Glomerular Filtration Rate 33, BUN/Creatinine Ratio 13, Glucose Level 111, Calcium Level 8.3, Corrected Calcium 9.1, Total Bilirubin 1.1, Aspartate Amino Transf (AST/SGOT) 17, Alanine Aminotransferase (ALT/SGPT) 14, Alkaline Phosphatase 61, Total Protein 6.4, Albumin 3.0 01/19/23 05:45: White Blood Count 6.7, Red Blood Count 2.85, Hemoglobin 9.1, Hematocrit 29, Mean Corpuscular Volume 101, Mean Corpuscular Hemoglobin 32, Mean Corpuscular Hemoglobin Concent 32, Red Cell Distribution Width 14.0, Platelet Count 177, Mean Platelet Volume 11.0, Immature Granulocyte % (Auto) 0, Neutrophils (%) (Auto) 60, Lymphocytes (%) (Auto) 22, Monocytes (%) (Auto) 11, Eosinophils (%) (Auto) 7, Basophils (%) (Auto) 1, Neutrophils # (Auto) 4.0, Lymphocytes # (Auto) 1.5, Monocytes # (Auto) 0.7, Eosinophils # (Auto) 0.4, Basophils # (Auto) 0.1, Immature Granulocyte # (Auto) 0.0, Sodium Level 143, Potassium Level 3.6, Chloride Level 115, Carbon Dioxide Level 20, Anion Gap 8, Blood Urea Nitrogen 20, Creatinine 1.63, Estimat Glomerular Filtration Rate 32, BUN/Creatinine Ratio 12, Glucose Level 112, Calcium Level 8.3, Corrected Calcium 9.0, Total Bilirubin 0.8, Aspartate Amino Transf (AST/SGOT) 19, Alanine Aminotransferase (ALT/SGPT) 14, Alkaline Phosphatase 63, Total Protein 6.2, Albumin 3.1 Discharge Home Medications: Active Scripts Active Amox Tr-K Clv 875-125 mg Tab (Amoxicillin/Potassium Clav) 875 Mg-125 Mg Tablet 1 Each PO BID Reported Sodium Bicarbonate 650 Mg Tablet 1,950 Mg PO BID TAKES 3 (650MG) TABS LAST FILLED 03-03-2022 #1000/167 DAY SUPPLY Docusate Sodium 100 Mg Capsule 100 Mg PO TID Vitamin D3 (Cholecalciferol (Vitamin D3)) 125 Mcg (5000 Unit) Capsule 125 Mcg PO DAILY Vision Vitamins (Beta-Carotene(A) W-C & E/Min) 1 Each Tablet 1 Each PO BID Rosuvastatin Calcium 20 Mg Tablet 20 Mg PO HS Furosemide 20 Mg Tablet 20 Mg PO DAILY PRN Otezla (Apremilast) 30 Mg Tablet 30 Mg PO BID Synthroid (Levothyroxine Sodium) 125 Mcg Tablet 125 Mcg PO DAILY Aspirin EC (Aspirin) 81 Mg Tablet.dr 81 Mg PO HS Pantoprazole Sodium 40 Mg Tablet.dr 40 Mg PO HS Sucralfate 1 Gram Tablet 1 Gm PO DAILY Allopurinol 100 Mg Tablet 100 Mg PO HS Doxazosin Mesylate 2 Mg Tablet 2 Mg PO BID Metoclopramide HCl 10 Mg Tablet 10 Mg PO HS Losartan Potassium 100 Mg Tablet 100 Mg PO HS Spironolactone 25 Mg Tablet 25 Mg PO DAILY Amlodipine Besylate 10 Mg Tablet 10 Mg PO DAILY Metoprolol Succinate 50 Mg Tab.er.24h 50 Mg PO DAILY Instructions to patient/family Please see electronic discharge instructions given to patient. Clinical Quality Measures DVT/VTE Risk/Contraindication: Contraindications-Pharm: Other *list below* Contraindications-Mechi: Other *list below* Other: cellulitis of the legs INEZ PALMA DO Jan 19, 2023 10:19
[2023-01-19] MEDS: SENNOSIDES 8.6 MG (SENOKOT) TAB PO SCH (10:29)
[2023-01-19] MEDS: DOCUSATE SODIUM 100 MG CAPSULE PO SCH ×2 (10:29→13:41)
[2023-01-19] MEDS: amLODIPine 10 MG TABLET PO SCH (10:29)
[2023-01-19] MEDS: SPIRONOLACTONE 25 MG (ALDACTONE) TAB PO SCH (10:30)
[2023-01-19] MEDS: VITAMIN D3 125 MCG (5,000 UNITS) TABLET PO SCH (10:30)
[2023-01-19 11:19] VITALS: BP 132/71
[2023-01-19] MEDS ORDERED: ENOXAPARIN 30 MG/0.3 ML SYRINGE SC SCH (21:00)
== END 2023-01-19 14:51 | disposition home or self-care (01) | DRG 871 ==
LOC: EDUNIT# 16:36 → ER 16:38 → 4TH 18:29
PROVIDERS: ADMIT Internal Medicine; ATTEND Internal Medicine
DX: A41.9 Sepsis, unspecified organism (principal); J96.01 Acute respiratory failure with hypoxia; L03.90 Cellulitis, unspecified; D84.89 Other immunodeficiencies; N17.9 Acute kidney failure, unspecified; M10.9 Gout, unspecified; Z79.82 Long term (current) use of aspirin; Z79.899 Other long term (current) drug therapy; I12.9 Hypertensive chronic kidney disease with stage 1 through stage 4 chronic kidney disease, or unspecified chronic kidney disease; N18.9 Chronic kidney disease, unspecified; E78.5 Hyperlipidemia, unspecified; Z96.651 Presence of right artificial knee joint; Z90.5 Acquired absence of kidney; I25.10 Atherosclerotic heart disease of native coronary artery without angina pectoris; E78.00 Pure hypercholesterolemia, unspecified; K21.9 Gastro-esophageal reflux disease without esophagitis; M19.90 Unspecified osteoarthritis, unspecified site; E03.9 Hypothyroidism, unspecified; L40.9 Psoriasis, unspecified; R01.1 Cardiac murmur, unspecified; G47.33 Obstructive sleep apnea (adult) (pediatric); I27.20 Pulmonary hypertension, unspecified
CPT/HCPCS: 36415; 71045; 73630; 80053; 83605; 84550; 85025; 86141; 87040; 93306; 94640; 94664; 94760

== ENCOUNTER 2023-03-21 14:26 | Inpatient (IN) | payer MEDICARE, OTHER ==
[~2023-03-21] VITALS: Ht 162 cm; Wt 83.0 kg
[~2023-03-21 14:26] MED LIST changes: +AMOX1TAB12 PO; +APRE30TA5 PO; +ASPI-1238 PO; +BETA1TAB12 PO; +DOCU100C37 PO; +FURO20TA4 PO; +LEVO125T PO; +ROSU20TA73 PO
[2023-03-21 15:24] LABS: CLARITY,URINE CLEAR; COLOR,URINE YELLOW
[2023-03-21 15:25] LABS: BACTERIA,URINE FEW /HPF; BILIRUBIN,URINE 1+ (NEGATIVE); GLUCOSE, URINE (UA) NEGATIVE (NEGATIVE); KETONES,URINE TRACE (NEGATIVE); LEUKOCYTE ESTERASE ,URINE 1+ (NEGATIVE); NITRITE,URINE NEGATIVE (NEGATIVE); PH,URINE 5.5 (5-9); PROTEIN,URINE 1+ (NEGATIVE); RBC,URINE 0-2 /HPF; WBC,URINE 50-100 /HPF
--- NOTE | 2023-03-21 15:28 | ED General ---
General Chief Complaint: General Problems/Pain Stated Complaint: CRACKING SKIN Nursing Triage Note: pt presents to ed via pov from home with complaints of not feeling well since Thursday. pt reports she has episodes of vomitig on but has not vomited thursday or today. pt reports she feels like her psoriasis is acting up and she has a new area on her l calf is worse. Source of Information: Patient Exam Limitations: No Limitations History of Present Illness Date Seen by Provider: Mar 21, 2023 Time Seen by Provider: 15:25 Initial Comments Patient is a 83-year-old female who presents to ED for not feeling well, redness swelling and pain left leg. Patient states she started vomiting on . She states has not been feeling well since . She states the vomiting has improved and has not vomited Thursday or today. She denies chest pain, cough, shortness of breath, diarrhea, pain with urination, fever. She noted some redness and swelling that has developed to the left leg that started around . Redness up to her left knee. Denies history of DVT. She states she has had a history of similar symptoms was admitted for cellulitis. She does receive injection every 2 weeks by her nnp for her psoriasis. Follows Dr. INEZ palma Allergies and Home Medications Allergies Coded Allergies: adhesive tape (Verified Allergy, Unknown, 03/11/18) Patient Home Medication List Home Medication List Reviewed: Yes Allopurinol (Allopurinol) 100 Mg Tablet, 100 MG PO HS, (Reported) Entered as Reported by: ZUNILDA LYLE on 11/16/17 1029 Amlodipine Besylate (Amlodipine Besylate) 10 Mg Tablet, 10 MG PO DAILY, (Reported) Entered as Reported by: ZUNILDA LYLE on 11/16/17 1029 Amoxicillin/Potassium Clav (Amox Tr-K Clv 875-125 mg Tab) 875 Mg-125 Mg Tablet, 1 EACH PO BID Prescribed by: INEZ PALMA on 01/19/23 1018 Apremilast (Otezla) 30 Mg Tablet, 30 MG PO BID, (Reported) Entered as Reported by: LIZZY REY on 01/16/23 1234 Aspirin (Aspirin EC) 81 Mg Tablet.dr, 81 MG PO HS, (Reported) Entered as Reported by: LZIZY REY on 01/16/23 1234 Beta-Carotene(A) W-C & E/Min (Vision Vitamins) 1 Each Tablet, 1 EACH PO BID, (Reported) Entered as Reported by: LIZZY REY on 01/16/23 1234 Cholecalciferol (Vitamin D3) (Vitamin D3) 125 Mcg (5000 Unit) Capsule, 125 MCG PO DAILY, (Reported) Entered as Reported by: LIZZY REY on 01/16/23 1234 Docusate Sodium (Docusate Sodium) 100 Mg Capsule, 100 MG PO TID, (Reported) Entered as Reported by: LIZZY REY on 01/16/23 1234 Doxazosin Mesylate (Doxazosin Mesylate) 2 Mg Tablet, 2 MG PO BID, (Reported) Entered as Reported by: ZUNILDA LYLE on 11/16/17 1029 Furosemide (Furosemide) 20 Mg Tablet, 20 MG PO DAILY PRN for FLUID RETENTION, (Reported) Entered as Reported by: LIZZY REY on 01/16/23 1234 Levothyroxine Sodium (Synthroid) 125 Mcg Tablet, 125 MCG PO DAILY, (Reported) Entered as Reported by: LIZZY REY on 01/16/23 1234 Losartan Potassium (Losartan Potassium) 100 Mg Tablet, 100 MG PO HS, (Reported) Entered as Reported by: ZUNILDA LYLE on 11/16/17 1029 Metoclopramide HCl (Metoclopramide HCl) 10 Mg Tablet, 10 MG PO HS, (Reported) Entered as Reported by: ZUNILDA LYLE on 11/16/17 1029 Metoprolol Succinate (Metoprolol Succinate) 50 Mg Tab.er.24h, 50 MG PO DAILY, (Reported) Entered as Reported by: ZUNILDA LYLE on 11/16/17 1029 Pantoprazole Sodium (Pantoprazole Sodium) 40 Mg Tablet.dr, 40 MG PO HS, (Reported) Entered as Reported by: ZUNILDA LYLE on 03/11/18 1342 Rosuvastatin Calcium (Rosuvastatin Calcium) 20 Mg Tablet, 20 MG PO HS, (Reported) Entered as Reported by: LIZZY REY on 01/16/23 1234 Sodium Bicarbonate (Sodium Bicarbonate) 650 Mg Tablet, 1,950 MG PO BID, (Reported) Entered as Reported by: LIZZY REY on 01/16/23 1234 Spironolactone (Spironolactone) 25 Mg Tablet, 25 MG PO DAILY, (Reported) Entered as Reported by: ZUNILDA LYLE on 11/16/17 1029 Sucralfate (Sucralfate) 1 Gram Tablet, 1 GM PO DAILY, (Reported) Entered as Reported by: ZUNILDA LYLE on 11/16/17 1029 Review of Systems Review of Systems Constitutional: No chills, No diaphoresis, No fever; malaise, weakness EENTM: No ear pain, No blurred vision, No double vision Respiratory: No cough, No dyspnea on exertion Cardiovascular: No chest pain Gastrointestinal: No abdominal pain, No diarrhea, No nausea, No vomiting Genitourinary: No decreased output, No discharge Musculoskeletal: No back pain, No joint pain Skin: change in color All Other Systems Reviewed Negative Unless Noted: Yes Past [place]-Iwqoet-Xnnhak Hx Patient Social History Tobacco Use?: No Substance use?: No Alcohol Use?: No Pt feels they are or have been: No Immunizations Up To Date Tetanus Booster (TDap): Unknown PED Vaccines UTD: No Seasonal Allergies Seasonal Allergies: No Past Medical History Surgery/Hospitalization HX: HEART VALVE, HEART MURMER, HTN, HLD, CKD, PSORIASIS, HYST, DIANE, KIDNEY REMOVAL, R KNEE REPLACEMENT Surgeries: Yes (left nephrectomy, hemorrhoidectomy, neck sx, R knee scope) Gallbladder, Hysterectomy, Nephrectomy, Orthopedic Respiratory: Yes Sleep Apnea Currently Using CPAP: Yes Cardiac: Yes Coronary Artery Disease, Heart Murmur, High Cholesterol, Hypertension Neurological: No Reproductive Disorders: No Sexually Transmitted Disease: No Genitourinary: Yes (left kidney removed) Renal Failure Gastrointestinal: Yes Gastroesophageal Reflux, Chronic Constipation Musculoskeletal: Yes Arthritis Endocrine: Yes Hypothyroidsim HEENT: No Cancer: Yes Melanoma What Type of Treatment Did You: Surgical Intervention Psychosocial: No Integumentary: No Blood Disorders: No Family Medical History Completed stroke G8 SISTER Diabetes mellitus 19 MOTHER G8 BROTHER G8 SISTER Hypertension 19 FATHER 19 MOTHER G8 BROTHER G8 SISTER Myocardial infarction 19 FATHER 19 MOTHER Parkinson's disease G8 BROTHER Respiratory disorder G8 BROTHER (lung cancer) Brother with lung cancer also had psoriasis Physical Exam Vital Signs Vital Signs - First Documented 03/21/23 14:49 Temp 36.9 Pulse 116 Resp 16 B/P (MAP) 120/84 (96) Pulse Ox 98 Capillary Refill : Less Than 3 Seconds Height, Weight, BMI Height: 5'4.00" Weight: 212lbs. 0.0oz. [id number]; 31.00 BMI Method: General Appearance: No Apparent Distress, WD/WN Eyes: Bilateral Eye Normal Inspection, Bilateral Eye PERRL, Bilateral Eye EOMI HEENT: PERRL/EOMI, TMs Normal, Normal ENT Inspection, Pharynx Normal Neck: Full Range of Motion, Normal Inspection, Non Tender, Supple Respiratory: Chest Non Tender, Lungs Clear, Normal Breath Sounds, No Accessory Muscle Use, No Respiratory Distress Cardiovascular: No Edema, No Gallop, No JVD, Tachycardia Gastrointestinal: Normal Bowel Sounds, No Organomegaly, No Pulsatile Mass, Non Tender Back: Normal Inspection, No CVA Tenderness Extremity: Other (Redness and swelling noted to the left leg. Mild tenderness to the left medial calf. Neurovascular intact dorsalis pedis +2. Erythematous cracking skin noted on the plantar side of the feet. Psoriatec type lesion right hand) Neurologic/Psychiatric: Alert, Oriented x3, No Motor/Sensory Deficits, Normal Mood/Affect, middle school english teacher II-XII Norm as Tested Skin: Erythema (Left lower leg) Focused Exam Lactate Level 03/21/23 15:31: Lactic Acid Level 1.20 Lactic Acid Level Laboratory Tests Test 03/21/23 15:31 Lactic Acid Level 1.20 MMOL/L (0.50-2.00) Progress/Results/Core Measures Suspected Sepsis SIRS Temperature: Pulse: 116 Respiratory Rate: 16 Laboratory Tests 03/21/23 15:31: White Blood Count 19.8H Blood Pressure 120 /84 Mean: 96 03/21/23 15:31: Lactic Acid Level 1.20 Laboratory Tests 03/21/23 15:31: Creatinine 1.65H, Platelet Count 199, Total Bilirubin 1.0 Results/Orders Lab Results Laboratory Tests Test 03/21/23 15:11 03/21/23 15:31 Range/Units Urine Color YELLOW Urine Clarity CLEAR Urine pH 5.5 5-9 Urine Specific [place] 1.015 L 1.016-1.022 Urine Protein 1+ H NEGATIVE Urine Glucose (UA) NEGATIVE NEGATIVE Urine Ketones TRACE H NEGATIVE Urine Nitrite NEGATIVE NEGATIVE Urine Bilirubin 1+ H NEGATIVE Urine Urobilinogen 0.2 < = 1.0 MG/DL Urine Leukocyte Esterase 1+ H NEGATIVE Urine RBC (Auto) TRACE H NEGATIVE Urine RBC 0-2 /HPF Urine WBC 50-100 H /HPF Urine Squamous Epithelial Cells 2-5 /HPF Urine Crystals NONE /LPF Urine Bacteria FEW H /HPF Urine Casts NONE /LPF Urine Mucus NEGATIVE /LPF Urine Culture Indicated YES White Blood Count 19.8 H 4.3-11.0 10^3/uL Red Blood Count 3.29 L 3.80-5.11 10^6/uL Hemoglobin 10.6 L 11.5-16.0 g/dL Hematocrit 33 L 35-52 % Mean Corpuscular Volume 99 80-99 fL Mean Corpuscular Hemoglobin 32 25-34 pg Mean Corpuscular Hemoglobin Concent 32 32-36 g/dL Red Cell Distribution Width 14.6 H 10.0-14.5 % Platelet Count 199 130-400 10^3/uL Mean Platelet Volume 11.6 9.0-12.2 fL Immature Granulocyte % (Auto) 1 % Neutrophils (%) (Auto) 86 H 42-75 % Lymphocytes (%) (Auto) 8 L 12-44 % Monocytes (%) (Auto) 4 0-12 % Eosinophils (%) (Auto) 1 0-10 % Basophils (%) (Auto) 0 0-10 % Neutrophils # (Auto) 17.0 H 1.8-7.8 10^3/uL Lymphocytes # (Auto) 1.7 1.0-4.0 10^3/uL Monocytes # (Auto) 0.8 0.0-1.0 10^3/uL Eosinophils # (Auto) 0.1 0.0-0.3 10^3/uL Basophils # (Auto) 0.1 0.0-0.1 10^3/uL Immature Granulocyte # (Auto) 0.1 0.0-0.1 10^3/uL Neutrophils % (Manual) 84 % Lymphocytes % (Manual) 10 % Monocytes % (Manual) 1 % Eosinophils % (Manual) 1 % Basophils % (Manual) 0 % Band Neutrophils 4 % Blood Morphology Comment NORMAL Sodium Level 140 135-145 MMOL/L Potassium Level 3.5 L 3.6-5.0 MMOL/L Chloride Level 110 H 98-107 MMOL/L Carbon Dioxide Level 18 L 21-32 MMOL/L Anion Gap 12 5-14 MMOL/L Blood Urea Nitrogen 31 H 7-18 MG/DL Creatinine 1.65 H 0.60-1.30 MG/DL Estimat Glomerular Filtration Rate 31 BUN/Creatinine Ratio 19 Glucose Level 100 70-105 MG/DL Lactic Acid Level 1.20 0.50-2.00 MMOL/L Calcium Level 8.6 8.5-10.1 MG/DL Corrected Calcium 9.2 8.5-10.1 MG/DL Total Bilirubin 1.0 0.1-1.0 MG/DL Aspartate Amino Transf (AST/SGOT) 23 5-34 U/L Alanine Aminotransferase (ALT/SGPT) 15 0-55 U/L Alkaline Phosphatase 81 40-136 U/L C-Reactive Protein High Sensitivity 18.55 H 0.00-0.50 MG/DL Total Protein 6.6 6.4-8.2 GM/DL Albumin 3.2 3.2-4.5 GM/DL Lipase < 4 L 8-78 U/L Influenza Type A (RT-PCR) Not Detected Not Detecte Influenza Type B (RT-PCR) Not Detected Not Detecte SARS-CoV-2 RNA (RT-PCR) Not Detected Not Detecte My Orders Orders - GINETTE LOVE Covid 19 Inhouse Test (03/21/23 15:02) Influenza A And B By Pcr (03/21/23 15:02) Ua Culture If Indicated (03/21/23 15:02) Cbc And Automated Diff (03/21/23 15:02) Comprehensive Metabolic Panel (03/21/23 15:02) Hs C Reactive Protein (03/21/23 15:23) Lipase (03/21/23 15:23) Blood Culture (03/21/23 15:23) Lactic Acid Analyzer (03/21/23 15:23) Urine Culture (03/21/23 15:11) Manual Differential (03/21/23 15:31) Piperacillin/Tazobactam (Piperacillin/Ta (03/21/23 15:45) Vancomycin Injection (Vancomycin Injecti (03/21/23 15:45) Ns Iv 1000 Ml (Ns Iv 1000 Ml) (03/21/23 17:03) Ed Admission (Communication) (03/21/23 17:04) Medications Given in ED Current Medications Medications Dose Ordered Sig/Abhishek Route Start Time Stop Time Status Last Admin Dose Admin Piperacillin Sod/ Tazobactam Sod 4.5 gm/Sodium Chloride 100 ml @ 200 mls/hr ONCE ONCE IV 03/21/23 15:45 03/21/23 16:14 DC 03/21/23 16:05 200 MLS/HR Vancomycin HCl 1000 mg/Sodium Chloride 250 ml @ 250 mls/hr ONCE ONCE IV 03/21/23 15:45 03/21/23 16:44 DC 03/21/23 17:03 250 MLS/HR Vital Signs/I&O 03/21/23 14:49 Temp 36.9 Pulse 116 Resp 16 B/P (MAP) 120/84 (96) Pulse Ox 98 Capillary Refill : Less Than 3 Seconds Blood Pressure Mean: 96 Departure Communication (PCP) History of psoriasis. Receives an injection Otleza every 2 weeks. She has known Psoriatec lesions. She started having redness and swelling of her left leg on . Started having vomiting but that has improved. Has not been feeling well. On exam she has redness and swelling of the left lower extremity. No history of DVT or currently on anticoagulant. She denies chest pain or shortness of breath. She is afebrile but tachycardic. Septic work-up was initiated. White blood count showed 19, left shift with bands. Chemistry showed creatinine 1.65 GFR 31. Chronic kidney disease. She was started on a liter of fluid was given Zosyn and vancomycin. Normal lactic acid. Other etiologies would be DVT. Do not have ultrasound on the weekends. Order for in the morning. I do think patient needs admitted for IV antibiotics and further treatment for this left lower leg cellulitis. similar type presentation to her right foot back in December and was admitted with improvement. Believe this was secondary to her psoriasis. She does have severe psoriasis with lesions on her foot. She does have cracking of the skin which may be source of infection. No purulent drainage at this time to swab. Patient was discussed with Dr. Palma hospitalist who agreed to accept the patient. Further evaluation is recommended Impression Primary Impression: Sepsis due to cellulitis Disposition: ADMITTED INPATIENT Condition: Stable Admissions Decision to Admit Reason: Admit from ER (General) Decision to Admit/Date: Mar 21, 2023 Time/Decision to Admit Time: 17:05 Departure-Patient Inst. Referrals: INEZ PALMA DO (PCP/Family) Primary Care Physician GINETTE LOVE Mar 21, 2023 15:27
[2023-03-21 15:40] LABS: BASOPHILS # (AUTO) 0.1 10^3/uL (0.0-0.1); BASOPHILS % (AUTO) 0 % (0-10); EOSINOPHILS # (AUTO) 0.1 10^3/uL (0.0-0.3); EOSINOPHILS % (AUTO) 1 % (0-10); HEMATOCRIT 33 % (35-52); HEMOGLOBIN 10.6 g/dL (11.5-16.0); LYMPHOCYTES # (AUTO) 1.7 10^3/uL (1.0-4.0); LYMPHOCYTES % (AUTO) 8 % (12-44); MEAN CORPUSCULAR HEMOGLOBIN 32 pg (25-34); MEAN CORPUSCULAR HGB CONC 32 g/dL (32-36); MEAN CORPUSCULAR VOLUME 99 fL (80-99); MEAN PLATELET VOLUME 11.6 fL (9.0-12.2); MONOCYTES # (AUTO) 0.8 10^3/uL (0.0-1.0); MONOCYTES % (AUTO) 4 % (0-12); NEUTROPHILS % (AUTO) 86 % (42-75); PLATELET COUNT 199 10^3/uL (130-400); WHITE BLOOD COUNT 19.8 10^3/uL (4.3-11.0)
[2023-03-21] MEDS ORDERED: PIPERACILLIN/Tazobactam 4.5 GM in NS (IVPB) 100 ML 100 ML IV ONE (15:45)
[2023-03-21] MEDS ORDERED: VANCOMYCIN INJECTION 1,000 MG in NS (IVPB) 250 ML 250 ML IV ONE (15:45)
[2023-03-21 15:57] LABS: ALBUMIN 3.2 GM/DL (3.2-4.5); CHLORIDE 110 MMOL/L (98-107); POTASSIUM 3.5 MMOL/L (3.6-5.0); SODIUM 140 MMOL/L (135-145)
[2023-03-21 15:58] LABS: CALCIUM 8.6 MG/DL (8.5-10.1)
[2023-03-21 15:59] LABS: GLUCOSE 100 MG/DL (70-105); TOTAL PROTEIN 6.6 GM/DL (6.4-8.2)
[2023-03-21 16:00] LABS: CARBON DIOXIDE 18 MMOL/L (21-32)
[2023-03-21 16:03] LABS: ALKALINE PHOSPHATASE 81 U/L (40-136); CREATININE SERUM 1.65 MG/DL (0.60-1.30); GFR ESTIMATED 31
[2023-03-21 16:04] LABS: BUN/CREATININE RATIO 19
[2023-03-21 16:05] LABS: BAND NEUTROPHILS 4 %; BASOPHILS % (MANUAL) 0 %; EOSINOPHILS % (MANUAL) 1 %; LYMPHOCYTES % (MANUAL) 10 %; MONOCYTES % (MANUAL) 1 %; NEUTROPHILS % (MANUAL) 84 %; RBC MORPH NORMAL
[2023-03-21 16:06] LABS: ALANINE AMINOTRANSFERASE 15 U/L (0-55); LIPASE < 4 U/L (8-78)
[2023-03-21] MEDS ORDERED: NS IV 1000 ML 1,000 ML IV STA (17:03)
[2023-03-21] MEDS ORDERED: ACETAMINOPHEN 325 MG TABLET PO PRN (18:00)
[2023-03-21] MEDS ORDERED: BISACODYL 10 MG SUPPOSITORY PR PRN (18:00)
[2023-03-21] MEDS ORDERED: MILK OF MAGNESIA 400 MG/5 ML 30 ML UDC PO PRN (18:00)
[2023-03-21] MEDS ORDERED: MELATONIN 3 MG TABLET PO PRN (18:00)
[2023-03-21] MEDS ORDERED: LACTULOSE SYRUP 10GM/15ML 30ML UDC PO PRN (18:00)
[2023-03-21] MEDS ORDERED: ANTACID SUSPENSION 30 ML UDC PO PRN (18:00)
[2023-03-21] MEDS ORDERED: ENOXAPARIN 100 MG/1 ML SYRINGE SC SCH ×2 (18:00→20:45)
[2023-03-21] MEDS ORDERED: oxyCODONE IMMEDIATE RELEASE 5 MG TABLET PO PRN (18:00)
[2023-03-21] MEDS ORDERED: PIPERACILLIN/Tazobactam 4.5 GM in NS (IVPB) 100 ML 100 ML IV SCH (18:00)
[2023-03-21] MEDS ORDERED: diphenhydrAMINE INJ 50 MG/ML VIAL IVP PRN (18:00)
[2023-03-21] MEDS ORDERED: ONDANSETRON 4 MG ORAL DISSOLVE TABLET PO PRN (18:00)
[2023-03-21] MEDS ORDERED: diphenhydrAMINE 25 MG TABLET PO PRN (18:00)
[2023-03-21] MEDS ORDERED: cloNIDine 0.1 MG TABLET PO PRN (18:00)
[2023-03-21] MEDS ORDERED: ONDANSETRON INJECTION 4 MG/2 ML (SDV) IV PRN (18:00)
[2023-03-21] MEDS ORDERED: HYDROmorphone INJECTION 2 MG/ML VIAL IV PRN (18:00)
[2023-03-21] MEDS ORDERED: VANCOMYCIN INJECTION 0.1 MG in NS (IVPB) 250 ML 250 ML IV SCH (18:00)
[2023-03-21] MEDS ORDERED: CALCIUM CARBONATE 500 MG CHEW TABLET PO PRN (18:00)
[2023-03-21 18:08] VITALS: BP 110/64
[2023-03-21 18:15] VITALS: BP 111/76
[2023-03-21 18:30] VITALS: BP 111/70
[2023-03-21] MEDS ORDERED: VANCOMYCIN 1000 MG/VIAL ONE (18:31)
[2023-03-21] MEDS ORDERED: NS IV 1000 ML 1,000 ML ONE (18:32)
[2023-03-21] MEDS ORDERED: NS (IVPB) 100 ML 100 ML ONE (18:32)
[2023-03-21] MEDS ORDERED: ENOXAPARIN 100 MG/1 ML SYRINGE ONE (18:32)
[2023-03-21] MEDS ORDERED: NS (IVPB) 250 ML 250 ML ONE (18:32)
[2023-03-21] MEDS: NS IV 1000 ML 1,000 ML IV SCH (18:42)
[2023-03-21 18:45] VITALS: BP 106/79
[2023-03-21 18:48] VITALS: BP 106/79
[2023-03-21 20:00] VITALS: BP 112/59
[2023-03-21] MEDS ORDERED: VANCOMYCIN 750 MG/NS 250 ML IVPB IV ONE ×2 (20:45)
[2023-03-21] MEDS: SENNOSIDES 8.6 MG TABLET PO SCH (21:00)
[2023-03-21] MEDS: DOCUSATE SODIUM 100 MG CAPSULE PO SCH (21:00)
[2023-03-21] MEDS: PIPERACILLIN/Tazobactam 4.5 GM in NS (IVPB) 100 ML 100 ML IV SCH (22:43)
[2023-03-22 00:05] VITALS: BP 97/63
[2023-03-22 04:00] VITALS: BP 110/77
[2023-03-22 05:24] LABS: BASOPHILS # (AUTO) 0.1 10^3/uL (0.0-0.1); BASOPHILS % (AUTO) 1 % (0-10); EOSINOPHILS # (AUTO) 0.2 10^3/uL (0.0-0.3); EOSINOPHILS % (AUTO) 2 % (0-10); HEMATOCRIT 30 % (35-52); HEMOGLOBIN 9.8 g/dL (11.5-16.0); LYMPHOCYTES # (AUTO) 1.4 10^3/uL (1.0-4.0); LYMPHOCYTES % (AUTO) 11 % (12-44); MEAN CORPUSCULAR HEMOGLOBIN 32 pg (25-34); MEAN CORPUSCULAR HGB CONC 33 g/dL (32-36); MEAN CORPUSCULAR VOLUME 98 fL (80-99); MEAN PLATELET VOLUME 11.2 fL (9.0-12.2); MONOCYTES # (AUTO) 0.7 10^3/uL (0.0-1.0); MONOCYTES % (AUTO) 6 % (0-12); NEUTROPHILS # (AUTO) 10.5 10^3/uL (1.8-7.8); NEUTROPHILS % (AUTO) 81 % (42-75); PLATELET COUNT 177 10^3/uL (130-400)
[2023-03-22 05:39] LABS: ALBUMIN 2.8 GM/DL (3.2-4.5)
[2023-03-22 05:40] LABS: POTASSIUM 3.6 MMOL/L (3.6-5.0)
[2023-03-22 05:41] LABS: CALCIUM 8.2 MG/DL (8.5-10.1)
[2023-03-22 05:42] LABS: TOTAL PROTEIN 5.9 GM/DL (6.4-8.2)
[2023-03-22 05:44] LABS: BILIRUBIN,TOTAL 0.7 MG/DL (0.1-1.0)
[2023-03-22 05:46] LABS: CREATININE SERUM 1.5 MG/DL (0.60-1.30)
--- NOTE | 2023-03-22 06:17 | History & Physical ---
History of Present Illness HPI/Chief Complaint Chief complaint: Sepsis from left lower extremity cellulitis with immunosuppression and severe psoriasis HPI: This is an 83-year-old female clinic patient of [employer] who has a past medical history of severe psoriasis who had been hospitalized recently due to right lower extremity cellulitis requiring IV antibiotics and supportive care for sepsis who presented with left lower extremity redness and swelling requiring ER visit which showed evidence of sepsis with tachycardia fever and left lower extremity cellulitis in need of IV antibiotics due to immunosuppression state. She currently has been maintained on gentle IV fluids overnight her blood pressure remains a bit low and she remains slightly tachycardic so we will probably remain in cardiac stepdown for closer monitoring. I will hold her blood pressure medications. Her biomedical service engineer had placed her on Dupixent and she receives an injection every 2 weeks. The outline of her cellulitis has responded dramatically to the Zosyn and vancomycin. Source: patient Exam Limitations: no limitations Date Seen 03/22/23 Time Seen by a Provider: 09:00 Attending Physician Laurel Gil DO PCP Admitting Physician: Laurel Gil DO Attending Physician: Laurel Gil DO Referring Physician Date of Admission Mar 21, 2023 at 17:32 Home Medications & Allergies Home Medications Reviewed patient Home Medication Reconciliation performed by pharmacy medication reconciliations cinetechnician and/or nursing. Patients Allergies have been reviewed. Allergies Allergies Coded Allergies adhesive tape (Verified Allergy, Unknown, 03/11/18) Past Abcjzxp-Tytntc-Byjoep Hx Past Med/Social Hx: Reviewed Nursing Past Med/Soc Hx, Reviewed and Corrections made Patient Social History Marrital Status: Employed/Student: retired Alcohol Use: Denies Use Smoking Status: Never a Smoker Recent Hopitalizations: No Immunizations Up To Date Tetanus Booster (TDap): Unknown Pediatric: No Date of Pneumonia Vaccine: Feb 22, 2018 Date of Influenza Vaccine: Feb 22, 2018 Seasonal Allergies Seasonal Allergies: No Past Medical History Surgeries: Gallbladder, Hysterectomy, Nephrectomy, Orthopedic Currently Using CPAP: Yes Cardiac: Coronary Artery Disease, Heart Murmur, High Cholesterol, Hypertension Reproductive: No Sexually Transmitted Disease: No Genitourinary: Renal Failure Gastrointestinal: Gastroesophageal Reflux, Chronic Constipation Musculoskeletal: Arthritis Endocrine: Hypothyroidsim Cancer: Melanoma What Type of Treatment Did You: Surgical Intervention History of Blood Disorders: No Family History Completed stroke G8 SISTER Diabetes mellitus 19 MOTHER G8 BROTHER G8 SISTER Hypertension 19 FATHER 19 MOTHER G8 BROTHER G8 SISTER Myocardial infarction 19 FATHER 19 MOTHER Parkinson's disease G8 BROTHER Respiratory disorder G8 BROTHER (lung cancer) Brother with lung cancer also had psoriasis Review of Systems Constitutional: see HPI, dizziness, malaise, weakness EENTM: no symptoms reported Respiratory: no symptoms reported Cardiovascular: no symptoms reported Gastrointestinal: no symptoms reported Genitourinary: no symptoms reported Musculoskeletal: back pain, joint pain Skin: see HPI Psychiatric/Neurological: No Symptoms Reported All Other Systems Reviewed Negative Unless Noted: Yes Physical Exam Physical Exam Vital Signs Vital Signs - First Documented 03/21/23 03/21/23 03/21/23 03/22/23 14:49 17:50 18:58 08:08 Temp 36.9 Pulse 116 Resp 16 B/P (MAP) 120/84 (96) Pulse Ox 98 O2 Delivery Room Air O2 Flow Rate 0.00 FiO2 21 Capillary Refill : Less Than 3 Seconds Height, Weight, BMI Height: 5'4.00" Weight: 212lbs. 0.0oz. 96.089932xj; 32.23 BMI Method: General Appearance: No Apparent Distress, WD/WN, Anxious, Chronically ill HEENT: PERRL/EOMI, TMs Normal, Normal ENT Inspection, Pharynx Normal Neck: Full Range of Motion, Normal Inspection, Non Tender, Supple Respiratory: Chest Non Tender, Lungs Clear, Normal Breath Sounds, No Accessory Muscle Use, No Respiratory Distress Cardiovascular: No Edema, No Gallop, No JVD, Tachycardia Gastrointestinal: Normal Bowel Sounds, No Organomegaly, No Pulsatile Mass, Non Tender Back: Normal Inspection, No CVA Tenderness Extremity: Other (Redness and swelling noted to the left leg. Mild tenderness to the left medial calf. Neurovascular intact dorsalis pedis +2. Erythematous cracking skin noted on the plantar side of the feet. Psoriatec type lesion right hand) Neurologic/Psychiatric: Alert, Oriented x3, No Motor/Sensory Deficits, Normal Mood/Affect, hazmat cdl driver II-XII Norm as Tested Skin: Erythema (Left lower leg) Results Results/Procedures Labs Laboratory Tests 03/21/23 15:31 03/22/23 04:44 Patient resulted labs reviewed. 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 Severe psoriasis Recent cellulitis of the right lower extremity while maintained on Otezla ELLEN on CPAP Hypertension Hyperlipidemia Chronic kidney disease History of nephrectomy CAD Heart murmur Hypothyroidism PHTN on ECHO Plan: IV antibiotics Gentle IV fluid Monitor low blood pressure Monitor tachycardia Home meds Pain meds Venous Doppler tomorrow Therapeutic dose Lovenox Admission Status: Inpatient Order (span 2 midnights) Reason for Inpatient Admission: Sepsis in immunosuppressed state Clinical Quality Measures DVT/VTE Risk/Contraindication: Contraindications-Mechi: Other *list below* Other: cellulitis of legs and poss DVT LAUREL GIL DO Mar 22, 2023 06:17
[2023-03-22] MEDS: PIPERACILLIN/Tazobactam 4.5 GM in NS (IVPB) 100 ML 100 ML IV SCH ×3 (06:43→21:55)
[2023-03-22] MEDS: NS IV 1000 ML 1,000 ML IV SCH (06:43)
[2023-03-22 08:02] VITALS: BP 93/69
[2023-03-22] MEDS: DOCUSATE SODIUM 100 MG CAPSULE PO SCH ×3 (08:05→20:16)
[2023-03-22] MEDS: SENNOSIDES 8.6 MG TABLET PO SCH ×2 (08:05→21:57)
[2023-03-22 12:00] VITALS: BP 121/107
[2023-03-22 16:00] VITALS: BP 128/74
[2023-03-22] MEDS: ENOXAPARIN 80 MG/0.8 ML SYRINGE SC SCH (18:15)
[2023-03-22] MEDS: VANCOMYCIN 1 GM/NS 250 ML IVPB IV SCH ×2 (19:49)
[2023-03-22 20:00] VITALS: BP 109/64
[2023-03-22] MEDS: SODIUM BICARBONATE 650 MG TABLET PO SCH (20:17)
[2023-03-22] MEDS: ALLOPURINOL 100 MG TABLET PO SCH (20:17)
[2023-03-22] MEDS: PANTOPRAZOLE 40 MG TABLET PO SCH (20:17)
[2023-03-22] MEDS: ASPIRIN enteric coated 81MG TABLET PO SCH (20:17)
[2023-03-22] MEDS: METOCLOPRAMIDE 10 MG TABLET PO SCH (20:17)
[2023-03-22] MEDS: ROSUVASTATIN 20 MG TABLET PO SCH (20:17)
[2023-03-23] VITALS: BP 117/70
[2023-03-23 04:00] VITALS: BP 129/74
[2023-03-23 04:46] LABS: BASOPHILS # (AUTO) 0.1 10^3/uL (0.0-0.1); BASOPHILS % (AUTO) 1 % (0-10); EOSINOPHILS # (AUTO) 0.4 10^3/uL (0.0-0.3); EOSINOPHILS % (AUTO) 5 % (0-10); HEMATOCRIT 31 % (35-52); LYMPHOCYTES # (AUTO) 1.3 10^3/uL (1.0-4.0); LYMPHOCYTES % (AUTO) 19 % (12-44); MEAN CORPUSCULAR HEMOGLOBIN 32 pg (25-34); MEAN CORPUSCULAR HGB CONC 33 g/dL (32-36); MEAN CORPUSCULAR VOLUME 98 fL (80-99); MONOCYTES # (AUTO) 0.4 10^3/uL (0.0-1.0); MONOCYTES % (AUTO) 6 % (0-12); NEUTROPHILS # (AUTO) 4.9 10^3/uL (1.8-7.8); NEUTROPHILS % (AUTO) 69 % (42-75); PLATELET COUNT 191 10^3/uL (130-400); WHITE BLOOD COUNT 7.1 10^3/uL (4.3-11.0)
[2023-03-23 04:57] LABS: ALBUMIN 2.8 GM/DL (3.2-4.5); POTASSIUM 3.5 MMOL/L (3.6-5.0)
[2023-03-23 04:59] LABS: TOTAL PROTEIN 5.9 GM/DL (6.4-8.2)
[2023-03-23] MEDS ORDERED: VANCOMYCIN 1250MG/250ML PREMIX 250 ML IV SCH (05:00)
[2023-03-23 05:01] LABS: BILIRUBIN,TOTAL 0.5 MG/DL (0.1-1.0)
[2023-03-23 05:03] LABS: CREATININE SERUM 1.84 MG/DL (0.60-1.30)
[2023-03-23] MEDS: THERAPEUTIC MULTIVITAMIN W/MINERALS TABLET PO SCH ×2 (06:06→08:08)
[2023-03-23] MEDS: LEVOTHYROXINE 125 MCG TABLET PO SCH (06:06)
[2023-03-23] MEDS: NS IV 1000 ML 1,000 ML IV SCH ×2 (06:06→08:07)
[2023-03-23] MEDS: PIPERACILLIN/Tazobactam 4.5 GM in NS (IVPB) 100 ML 100 ML IV SCH ×3 (06:06→22:03)
[2023-03-23 08:00] VITALS: BP 136/80
[2023-03-23] MEDS: SODIUM BICARBONATE 650 MG TABLET PO SCH ×2 (08:08→20:39)
[2023-03-23] MEDS: VITAMIN D3 125 MCG (5,000 UNITS) TABLET PO SCH (08:08)
[2023-03-23] MEDS: SUCRALFATE 1 GM TABLET PO SCH (08:08)
[2023-03-23] MEDS: SENNOSIDES 8.6 MG TABLET PO SCH ×2 (08:10→20:39)
[2023-03-23] MEDS: DOCUSATE SODIUM 100 MG CAPSULE PO SCH ×3 (08:10→20:39)
[2023-03-23] MEDS ORDERED: POTASSIUM CHLORIDE 20 MEQ TABLET PO ONE (09:30)
[2023-03-23] MEDS ORDERED: DUPI300P INJ (10:06)
[2023-03-23] MEDS ORDERED: HYDR-3584 PO (10:06)
--- NOTE | 2023-03-23 11:20 | Progress Note ---
GUERRAKAYLA 03/23/23 1120: Subjective Date Seen by a Provider: Mar 23, 2023 Time Seen by a Provider: 09:46 Subjective/Events-last exam CC: Cellulitis HPI: Dejah, 83F, notes that she feels much improved today from yesterday. She feels as though she is ready to go home. She denies any pain in her foot or any other concerns. She notes that she has no pain. She also says that she has no other concerns. She understands that some of her medications weaken the immune system which requires IV abx to be used. She notes that her hands and feet are very dry, but this is a chronic condition. Denies any dry eyes or dry mouth. She says that home of her hand lotions are helpful, pt advised to use these. Tx to 4th floor due to improvement Review of Systems General: No Fatigue HEENT: No Head Aches, No Eye Pain Pulmonary: No Cough Cardiovascular: No: Chest Pain Gastrointestinal: No: Nausea, Vomiting, Abdominal Pain Genitourinary: No Dysuria, No Incontinence Neurological: No: Weakness, Numbness, Change in speech, Confusion Focused Exam Lactate Level 03/21/23 15:31: Lactic Acid Level 1.20 Objective Exam Last Set of Vital Signs Vital Signs Date Time Temp Pulse Resp B/P (MAP) Pulse Ox O2 Delivery O2 Flow Rate FiO2 03/23/23 08:00 100 22 136/80 (98) 90 Room Air 03/22/23 19:33 36.5 03/22/23 08:08 0.00 03/21/23 18:58 21 Capillary Refill : Less Than 3 Seconds I&O Intake and Output 03/23/23 00:00 Intake Total 1660 ml Balance 1660 ml Intake Oral 1210 ml IV Total 450 ml # Voids 8 # Bowel Movements 3 General: Alert, Oriented X3, Cooperative, No Acute Distress HEENT: Mucous Memb Moist/[place] Lungs: Clear to Auscultation, Normal Air Movement Heart: Regular Rate, Other (systolic murmur ) Abdomen: Normal Bowel Sounds Skin: No Breakdown, Other (improved cellulitis on L-lower leg, mild erythema ) Neuro: Normal Speech, Normal Tone, Sensation Intact Results Lab Laboratory Tests 03/23/23 04:38: White Blood Count 7.1, Red Blood Count 3.11L, Hemoglobin 10.0L, Hematocrit 31L, Mean Corpuscular Volume 98, Mean Corpuscular Hemoglobin 32, Mean Corpuscular Hemoglobin Concent 33, Red Cell Distribution Width 14.6H, Platelet Count 191, Mean Platelet Volume 11.0, Immature Granulocyte % (Auto) 1, Neutrophils (%) (Auto) 69, Lymphocytes (%) (Auto) 19, Monocytes (%) (Auto) 6, Eosinophils (%) (Auto) 5, Basophils (%) (Auto) 1, Neutrophils # (Auto) 4.9, Lymphocytes # (Auto) 1.3, Monocytes # (Auto) 0.4, Eosinophils # (Auto) 0.4H, Basophils # (Auto) 0.1, Immature Granulocyte # (Auto) 0.0, Sodium Level 144, Potassium Level 3.5L, Chloride Level 117H, Carbon Dioxide Level 18L, Anion Gap 9, Blood Urea Nitrogen 22H, Creatinine 1.84H, Estimat Glomerular Filtration Rate 27, BUN/Creatinine Ratio 12, Glucose Level 105, Calcium Level 8.0L, Corrected Calcium 9.0, Total Bilirubin 0.5, Aspartate Amino Transf (AST/SGOT) 13, Alanine Aminotransferase (ALT/SGPT) 13, Alkaline Phosphatase 65, Total Protein 5.9L, Albumin 2.8L Microbiology 03/21/23 Blood Culture - Preliminary, Resulted 03/21/23 Urine Culture - Final, Complete Strep agalactiae Group B Growth Consistent See Comments Assessment/Plan Assessment/Plan Assess & Plan/Chief Complaint 03/23/2023: A/P -Sepsis * IV Vancomycin * IV Zozyn * Monitor vitals (elevated pulse noted) -Cellulitis * Abx, monitor for changes -GERD * Protonics * Metoclopromide -Hypokalemia * discontinue IV fluids -CKD * monitor BUN/Cr * Measure Vancomycin level -Tx to 4th floor MED/SURG * potential discharge 03/24 or 03/25 Clinical Quality Measures DVT/VTE Risk/Contraindication: Contraindications-Mechi: Other *list below* Other: cellulitis of legs and poss DVT LAUREL PALMA DO 03/24/23 0513: Subjective Subjective/Events-last exam Left leg much improved Abx tolerated Labs reviewed Objective Exam General: Alert, Oriented X3, Cooperative, No Acute Distress Skin: Other (improved cellulitis on L-lower leg, mild erythema ) Assessment/Plan Assessment/Plan Assess & Plan/Chief Complaint Move to 4th Supervisory-Addendum Brief Verification & Attestation Participated in pt care: history, MDM, physical Personally performed: exam, history, MDM, supervision of care Care discussed with: Medical Student Procedures: n/a Results interpretation: Verified all documentation Verification and Attestation of Medical Student E/M Service A medical student performed and documented this service in my presence. I reviewed and verified all information documented by the medical student and made modifications to such information, when appropriate. I personally performed the physical exam and medical decision making. Laurel Palma Mar 24, 2023,05:13 KAYLA GUERRA Mar 23, 2023 11:20 LAUREL PALMA DO Mar 24, 2023 05:13
[2023-03-23 12:00] VITALS: BP 139/73
--- NOTE | 2023-03-23 15:09 | Diagnostic Imaging Report ---
PROCEDURE: US Venous Lower Ext Jude. TECHNIQUE: Multiple real-time grayscale images were obtained over the lower extremities in various projections, bilaterally. Additional duplex Doppler and color Doppler images were also obtained. INDICATION: Cellulitis and DVT with bilateral lower extremity edema. FINDINGS: There is no evidence of right or left lower extremity DVT. Both lower extremity deep venous systems demonstrate normal compressibility with normal response to augmentation and Valsalva. No fluid collection or mass is detected. IMPRESSION: No evidence of right or left lower extremity DVT. Dictated by: Dictated on workstation # [id number]
[2023-03-23 16:58] VITALS: BP 140/80
[2023-03-23] MEDS: ENOXAPARIN 80 MG/0.8 ML SYRINGE SC SCH (18:14)
[2023-03-23] MEDS ORDERED: TROUGH ORDER-PHARMACY XX ONE (19:00)
[2023-03-23 20:00] VITALS: BP 148/64
[2023-03-23] MEDS: VANCOMYCIN 1 GM/NS 250 ML IVPB IV SCH ×2 (20:38)
[2023-03-23] MEDS: ALLOPURINOL 100 MG TABLET PO SCH (20:38)
[2023-03-23] MEDS: PANTOPRAZOLE 40 MG TABLET PO SCH (20:39)
[2023-03-23] MEDS: ASPIRIN enteric coated 81MG TABLET PO SCH (20:39)
[2023-03-23] MEDS: METOCLOPRAMIDE 10 MG TABLET PO SCH (20:39)
[2023-03-23] MEDS: ROSUVASTATIN 20 MG TABLET PO SCH (20:39)
[2023-03-23] MEDS ORDERED: NS (IVPB) 250 ML 250 ML ONE (20:41)
[2023-03-24] VITALS: BP 115/53
[2023-03-24 04:00] VITALS: BP 143/84
[2023-03-24 05:19] LABS: BASOPHILS # (AUTO) 0.1 10^3/uL (0.0-0.1); BASOPHILS % (AUTO) 1 % (0-10); EOSINOPHILS # (AUTO) 0.5 10^3/uL (0.0-0.3); EOSINOPHILS % (AUTO) 7 % (0-10); HEMATOCRIT 31 % (35-52); HEMOGLOBIN 9.8 g/dL (11.5-16.0); LYMPHOCYTES # (AUTO) 1.8 10^3/uL (1.0-4.0); LYMPHOCYTES % (AUTO) 27 % (12-44); MEAN CORPUSCULAR HEMOGLOBIN 32 pg (25-34); MEAN CORPUSCULAR HGB CONC 32 g/dL (32-36); MEAN CORPUSCULAR VOLUME 100 fL (80-99); MEAN PLATELET VOLUME 10.7 fL (9.0-12.2); MONOCYTES # (AUTO) 0.6 10^3/uL (0.0-1.0); MONOCYTES % (AUTO) 9 % (0-12); NEUTROPHILS # (AUTO) 3.5 10^3/uL (1.8-7.8); NEUTROPHILS % (AUTO) 55 % (42-75); PLATELET COUNT 204 10^3/uL (130-400); WHITE BLOOD COUNT 6.5 10^3/uL (4.3-11.0)
[2023-03-24 05:27] LABS: ALBUMIN 2.8 GM/DL (3.2-4.5)
[2023-03-24 05:29] LABS: TOTAL PROTEIN 5.9 GM/DL (6.4-8.2)
[2023-03-24 05:31] LABS: BILIRUBIN,TOTAL 0.5 MG/DL (0.1-1.0)
[2023-03-24 05:33] LABS: CREATININE SERUM 1.44 MG/DL (0.60-1.30)
[2023-03-24] MEDS: LEVOTHYROXINE 125 MCG TABLET PO SCH (05:37)
[2023-03-24] MEDS: PIPERACILLIN/Tazobactam 4.5 GM in NS (IVPB) 100 ML 100 ML IV SCH (05:37)
[2023-03-24 07:30] VITALS: BP 154/71
[2023-03-24] MEDS: SODIUM BICARBONATE 650 MG TABLET PO SCH (08:33)
[2023-03-24] MEDS: DOCUSATE SODIUM 100 MG CAPSULE PO SCH (08:33)
[2023-03-24] MEDS: THERAPEUTIC MULTIVITAMIN W/MINERALS TABLET PO SCH (08:33)
[2023-03-24] MEDS: SUCRALFATE 1 GM TABLET PO SCH (08:33)
[2023-03-24] MEDS: VITAMIN D3 125 MCG (5,000 UNITS) TABLET PO SCH (08:33)
[2023-03-24] MEDS: SENNOSIDES 8.6 MG TABLET PO SCH (08:33)
[2023-03-24] MEDS ORDERED: ENOXAPARIN 80 MG/0.8 ML SYRINGE SC SCH (09:00)
--- NOTE | 2023-03-24 10:57 | Progress Note ---
JENNIFER TAYLOR 03/24/23 1057: Subjective Subjective/Events-last exam CC: Cellulitis HPI: Mrs. Hickman is a 83 y/o female presenting with left lower extremity redness and swelling. She presented to the ED on 03/21/2023 and had sepsis as evident by tachycardia, fever, and LLE cellulitis requiring IV antibiotics. She is on immunospressive drugs (Otezla and Dupixent) for her psoriasis. She had a previous recent hospitalization due to cellulitis of her right lower extremity and sepsis. During her current hospital stay, the cellulitis has responded drastically to the zosyn and vancomycin regiment. Today she reports doing well, with no pain, and she is able to ambulate. She has been able to go to the bathroom without any issues and denies any diarrhea/constipation. She would like to go home today if possible. Review of Systems General: No Chills, No Night Sweats HEENT: No Head Aches, No Visual Changes Pulmonary: No Dyspnea Cardiovascular: No: Chest Pain, Palpitations Gastrointestinal: No: Nausea, Vomiting, Diarrhea, Constipation Genitourinary: No Dysuria Focused Exam Lactate Level 03/21/23 15:31: Lactic Acid Level 1.20 Objective Exam Last Set of Vital Signs Vital Signs Date Time Temp Pulse Resp B/P (MAP) Pulse Ox O2 Delivery O2 Flow Rate FiO2 03/24/23 07:30 36.5 65 17 154/71 (98) 97 Room Air 03/22/23 08:08 0.00 03/21/23 18:58 21 Capillary Refill : Less Than 3 Seconds I&O Intake and Output 03/24/23 00:00 Intake Total 1450 ml Balance 1450 ml Intake Oral 250 ml IV Total 1200 ml # Voids 4 # Bowel Movements 2 General: Alert, Oriented X3, No Acute Distress HEENT: Atraumatic Neck: Supple Lungs: Clear to Auscultation, Normal Air Movement Heart: Regular Rate Abdomen: Normal Bowel Sounds Extremities: No Clubbing, No Cyanosis, No Edema, Normal Pulses Skin: No Rashes Psych/Mental Status: Mental Status NL, Mood NL Results Lab Laboratory Tests 03/23/23 18:59: Vancomycin Level Trough 9.9L 03/24/23 05:11: White Blood Count 6.5, Red Blood Count 3.11L, Hemoglobin 9.8L, Hematocrit 31L, Mean Corpuscular Volume 100H, Mean Corpuscular Hemoglobin 32, Mean Corpuscular Hemoglobin Concent 32, Red Cell Distribution Width 14.7H, Platelet Count 204, Mean Platelet Volume 10.7, Immature Granulocyte % (Auto) 1, Neutrophils (%) (Auto) 55, Lymphocytes (%) (Auto) 27, Monocytes (%) (Auto) 9, Eosinophils (%) (Auto) 7, Basophils (%) (Auto) 1, Neutrophils # (Auto) 3.5, Lymphocytes # (Auto) 1.8, Monocytes # (Auto) 0.6, Eosinophils # (Auto) 0.5H, Basophils # (Auto) 0.1, Immature Granulocyte # (Auto) 0.1, Sodium Level 145, Potassium Level 4.0, Chloride Level 118H, Carbon Dioxide Level 18L, Anion Gap 9, Blood Urea Nitrogen 17, Creatinine 1.44H, Estimat Glomerular Filtration Rate 37, BUN/Creatinine Ratio 12, Glucose Level 94, Calcium Level 8.0L, Corrected Calcium 9.0, Total Bilirubin 0.5, Aspartate Amino Transf (AST/SGOT) 15, Alanine Aminotransferase (ALT/SGPT) 13, Alkaline Phosphatase 61, Total Protein 5.9L, Albumin 2.8L Microbiology 03/21/23 Blood Culture - Preliminary, Resulted 03/21/23 Urine Culture - Final, Complete Strep agalactiae Group B Growth Consistent See Comments Assessment/Plan Assessment/Plan Assess & Plan/Chief Complaint Assessment: Mrs. Hickman is a 83 y/o immunosuppressed female presenting for LLE cellulitis Plan: Sepsis -d/c IV vancomycin -d/c IV zosyn -start oral doxycycline and oral cefdinir -monitor vitals Cellulitis -d/c IV abx -start oral doxycycline and oral cefdinir CKD -vancomycin trough 9.9 - BUN/CR improving -encourage adequate fluid intake Disposition: -d/c home with -d/c on oral doxycline and cefdinir Clinical Quality Measures DVT/VTE Risk/Contraindication: Contraindications-Mechi: Other *list below* Other: cellulitis of legs and poss DVT LAUREL PALMA DO 03/25/23 0442: Supervisory-Addendum Brief Verification & Attestation Participated in pt care: history, MDM, physical Personally performed: exam, history, MDM, supervision of care Care discussed with: Medical Student Procedures: n/a Results interpretation: Verified all documentation Verification and Attestation of Medical Student E/M Service A medical student performed and documented this service in my presence. I reviewed and verified all information documented by the medical student and made modifications to such information, when appropriate. I personally performed the physical exam and medical decision making. Laurel Palma, Mar 25, 2023,04:42 JENNIFER TAYLOR Mar 24, 2023 10:57 LAUREL PALMA DO Mar 25, 2023 04:42
[2023-03-24 11:29] VITALS: BP 158/78
[2023-03-24] MEDS ORDERED: CEFD300C3 PO (11:52)
[2023-03-24] MEDS ORDERED: DOXY100T2 PO (11:52)
--- NOTE | 2023-03-24 11:53 | Discharge Summary ---
Diagnosis/Chief Complaint Date of Admission Mar 21, 2023 at 17:32 Date of Discharge Discharge Date: Mar 24, 2023 Discharge Diagnosis Sepsis Tachycardia Severe left lower extremity cellulitis Psoriasis Immunosuppressed ELLEN on CPAP Hypertension Discharge Summary Discharge Physical Examination Allergies: Coded Allergies: adhesive tape (Verified Allergy, Unknown, 03/11/18) Vitals & I&Os Vital Signs Date Time Temp Pulse Resp B/P (MAP) Pulse Ox O2 Delivery O2 Flow Rate FiO2 03/24/23 12:50 36.7 69 17 158/78 96 Room Air 0.00 03/21/23 18:58 21 General Appearance: Alert, Oriented X3, Cooperative Skin: Other (Left leg no pinkness or erythema) Hospital Course Was the Problem List Reviewed?: Yes HPI: Mrs. Hickman is a 83 y/o female presenting with left lower extremity redness and swelling. She presented to the ED on 03/21/2023 and had sepsis as evident by tachycardia, fever, and LLE cellulitis requiring IV antibiotics. She is on immunospressive drugs (Otezla and Dupixent) for her psoriasis. She had a previous recent hospitalization due to cellulitis of her right lower extremity and sepsis. During her current hospital stay, the cellulitis has responded drastically to the zosyn and vancomycin regiment. Today she reports doing well, with no pain, and she is able to ambulate. She has been able to go to the bathroom without any issues and denies any diarrhea/constipation. She would like to go home today if possible. Labs (last 24 hrs) Laboratory Tests 03/21/23 15:11: Urine Color YELLOW, Urine Clarity CLEAR, Urine pH 5.5, Urine Specific [place] 1.015L, Urine Protein 1+H, Urine Glucose (UA) NEGATIVE, Urine Ketones TRACEH, Urine Nitrite NEGATIVE, Urine Bilirubin 1+H, Urine Urobilinogen 0.2, Urine Leukocyte Esterase 1+H, Urine RBC (Auto) TRACEH, Urine RBC 0-2, Urine WBC 50- 100H, Urine Squamous Epithelial Cells 2-5, Urine Crystals NONE, Urine Bacteria FEWH, Urine Casts NONE, Urine Mucus NEGATIVE, Urine Culture Indicated YES 03/21/23 15:31: White Blood Count 19.8H, Red Blood Count 3.29L, Hemoglobin 10.6L, Hematocrit 33L , Mean Corpuscular Volume 99, Mean Corpuscular Hemoglobin 32, Mean Corpuscular Hemoglobin Concent 32, Red Cell Distribution Width 14.6H, Platelet Count 199, Mean Platelet Volume 11.6, Immature Granulocyte % (Auto) 1, Neutrophils (%) (Auto) 86H, Lymphocytes (%) (Auto) 8L, Monocytes (%) (Auto) 4, Eosinophils (%) (Auto) 1, Basophils (%) (Auto) 0, Neutrophils # (Auto) 17.0H, Lymphocytes # (Auto) 1.7, Monocytes # (Auto) 0.8, Eosinophils # (Auto) 0.1, Basophils # (Auto) 0.1, Immature Granulocyte # (Auto) 0.1, Neutrophils % (Manual) 84, Lymphocytes % (Manual) 10, Monocytes % (Manual) 1, Eosinophils % (Manual) 1, Basophils % (Manual) 0, Band Neutrophils 4, Blood Morphology Comment NORMAL, Sodium Level 140, Potassium Level 3.5L, Chloride Level 110H, Carbon Dioxide Level 18L, Anion Gap 12, Blood Urea Nitrogen 31H, Creatinine 1.65H, Estimat Glomerular Filtration Rate 31, BUN/Creatinine Ratio 19, Glucose Level 100, Lactic Acid Level 1.20, Calcium Level 8.6, Corrected Calcium 9.2, Total Bilirubin 1.0, Aspartate Amino Transf (AST/SGOT) 23, Alanine Aminotransferase (ALT/SGPT) 15, Alkaline Phosphatase 81, C-Reactive Protein High Sensitivity 18.55H, Total Protein 6.6, Albumin 3.2, Lipase < 4L, Influenza Type A (RT-PCR) Not Detected, Influenza Type B (RT-PCR) Not Detected, SARS-CoV-2 RNA (RT-PCR) Not Detected 03/21/23 17:32: Lab Scanned Report Referred Lab Report 03/22/23 04:44: White Blood Count 13.0H, Red Blood Count 3.06L, Hemoglobin 9.8L, Hematocrit 30L, Mean Corpuscular Volume 98, Mean Corpuscular Hemoglobin 32, Mean Corpuscular Hemoglobin Concent 33, Red Cell Distribution Width 14.6H, Platelet Count 177, Mean Platelet Volume 11.2, Immature Granulocyte % (Auto) 1, Neutrophils (%) (Auto) 81H, Lymphocytes (%) (Auto) 11L, Monocytes (%) (Auto) 6, Eosinophils (%) (Auto) 2, Basophils (%) (Auto) 1, Neutrophils # (Auto) 10.5H, Lymphocytes # (Auto) 1.4, Monocytes # (Auto) 0.7, Eosinophils # (Auto) 0.2, Basophils # (Auto) 0.1, Immature Granulocyte # (Auto) 0.1, Sodium Level 142, Potassium Level 3.6, Chloride Level 114H, Carbon Dioxide Level 18L, Anion Gap 10, Blood Urea Nitrogen 24H, Creatinine 1.50H, Estimat Glomerular Filtration Rate 35, BUN/Creatinine Ratio 16, Glucose Level 96, Calcium Level 8.2L, Corrected Calcium 9.2, Total Bilirubin 0.7, Aspartate Amino Transf (AST/SGOT) 16, Alanine Aminotransferase (ALT/SGPT) 12, Alkaline Phosphatase 75, Total Protein 5.9L, Albumin 2.8L 03/23/23 04:38: White Blood Count 7.1, Red Blood Count 3.11L, Hemoglobin 10.0L, Hematocrit 31L, Mean Corpuscular Volume 98, Mean Corpuscular Hemoglobin 32, Mean Corpuscular Hemoglobin Concent 33, Red Cell Distribution Width 14.6H, Platelet Count 191, Mean Platelet Volume 11.0, Immature Granulocyte % (Auto) 1, Neutrophils (%) (Auto) 69, Lymphocytes (%) (Auto) 19, Monocytes (%) (Auto) 6, Eosinophils (%) (Auto) 5, Basophils (%) (Auto) 1, Neutrophils # (Auto) 4.9, Lymphocytes # (Auto) 1.3, Monocytes # (Auto) 0.4, Eosinophils # (Auto) 0.4H, Basophils # (Auto) 0.1, Immature Granulocyte # (Auto) 0.0, Sodium Level 144, Potassium Level 3.5L, Chloride Level 117H, Carbon Dioxide Level 18L, Anion Gap 9, Blood Urea Nitrogen 22H, Creatinine 1.84H, Estimat Glomerular Filtration Rate 27, BUN/Creatinine Ratio 12, Glucose Level 105, Calcium Level 8.0L, Corrected Calcium 9.0, Total Bilirubin 0.5, Aspartate Amino Transf (AST/SGOT) 13, Alanine Aminotransferase (ALT/SGPT) 13, Alkaline Phosphatase 65, Total Protein 5.9L, Albumin 2.8L 03/23/23 18:59: Vancomycin Level Trough 9.9L 03/24/23 05:11: White Blood Count 6.5, Red Blood Count 3.11L, Hemoglobin 9.8L, Hematocrit 31L, Mean Corpuscular Volume 100H, Mean Corpuscular Hemoglobin 32, Mean Corpuscular Hemoglobin Concent 32, Red Cell Distribution Width 14.7H, Platelet Count 204, Mean Platelet Volume 10.7, Immature Granulocyte % (Auto) 1, Neutrophils (%) (Auto) 55, Lymphocytes (%) (Auto) 27, Monocytes (%) (Auto) 9, Eosinophils (%) (Auto) 7, Basophils (%) (Auto) 1, Neutrophils # (Auto) 3.5, Lymphocytes # (Auto) 1.8, Monocytes # (Auto) 0.6, Eosinophils # (Auto) 0.5H, Basophils # (Auto) 0.1, Immature Granulocyte # (Auto) 0.1, Sodium Level 145, Potassium Level 4.0, [place] Level 118H, Carbon Dioxide Level 18L, Anion Gap 9, Blood Urea Nitrogen 17, Creatinine 1.44H, Estimat Glomerular Filtration Rate 37, BUN/Creatinine Ratio 12, Glucose Level 94, Calcium Level 8.0L, Corrected Calcium 9.0, Total Bilirubin 0.5, Aspartate Amino Transf (AST/SGOT) 15, Alanine Aminotransferase (ALT/SGPT) 13, Alkaline Phosphatase 61, Total Protein 5.9L, Albumin 2.8L Microbiology 03/21/23 Blood Culture - Preliminary, Resulted 03/21/23 Urine Culture - Final, Complete Strep agalactiae Group B Growth Consistent See Comments Pending Labs Microbiology Date/Time Source Procedure Growth Status 03/21/23 15:31 Peripheral Lt Hand Blood Culture - Preliminary Resulted 03/21/23 15:11 Urine Clean Catch Urine Culture - Final Strep agalactiae Group B Growth Consistent See Comments Complete Laboratory Tests 03/21/23 15:11: Urine Color YELLOW, Urine Clarity CLEAR, Urine pH 5.5, Urine Specific [place] 1.015, Urine Protein 1+, Urine Glucose (UA) NEGATIVE, Urine Ketones TRACE, Urine Nitrite NEGATIVE, Urine Bilirubin 1+, Urine Urobilinogen 0.2, Urine Leukocyte Esterase 1+, Urine RBC (Auto) TRACE, Urine RBC 0-2, Urine WBC 50-100, Urine Squamous Epithelial Cells 2-5, Urine Crystals NONE, Urine Bacteria FEW, Urine Casts NONE, Urine Mucus NEGATIVE, Urine Culture Indicated YES 03/21/23 15:31: White Blood Count 19.8, Red Blood Count 3.29, Hemoglobin 10.6, Hematocrit 33, Mean Corpuscular Volume 99, Mean Corpuscular Hemoglobin 32, Mean Corpuscular Hemoglobin Concent 32, Red Cell Distribution Width 14.6, Platelet Count 199, Mean Platelet Volume 11.6, Immature Granulocyte % (Auto) 1, Neutrophils (%) (Auto) 86, Lymphocytes (%) (Auto) 8, Monocytes (%) (Auto) 4, Eosinophils (%) (Auto) 1, Basophils (%) (Auto) 0, Neutrophils # (Auto) 17.0, Lymphocytes # (Auto) 1.7, Monocytes # (Auto) 0.8, Eosinophils # (Auto) 0.1, Basophils # (Auto) 0.1, Immature Granulocyte # (Auto) 0.1, Neutrophils % (Manual) 84, Lymphocytes % (Manual) 10, Monocytes % (Manual) 1, Eosinophils % (Manual) 1, Basophils % (Manual) 0, Band Neutrophils 4, Blood Morphology Comment NORMAL, Sodium Level 140, Potassium Level 3.5, Chloride Level 110, Carbon Dioxide Level 18, Anion Gap 12, Blood Urea Nitrogen 31, Creatinine 1.65, Estimat Glomerular Filtration Rate 31, BUN/Creatinine Ratio 19, Glucose Level 100, Lactic Acid Level 1.20, Calcium Level 8.6, Corrected Calcium 9.2, Total Bilirubin 1.0, Aspartate Amino Transf (AST/SGOT) 23, Alanine Aminotransferase (ALT/SGPT) 15, Alkaline Phosphatase 81, C-Reactive Protein High Sensitivity 18.55, Total Protein 6.6, Albumin 3.2, Lipase < 4, Influenza Type A (RT-PCR) Not Detected, Influenza Type B (RT-PCR) Not Detected, SARS-CoV-2 RNA (RT-PCR) Not Detected 03/21/23 17:32: Lab Scanned Report Referred Lab Report 03/22/23 04:44: White Blood Count 13.0, Red Blood Count 3.06, Hemoglobin 9.8, Hematocrit 30, Mean Corpuscular Volume 98, Mean Corpuscular Hemoglobin 32, Mean Corpuscular Hemoglobin Concent 33, Red Cell Distribution Width 14.6, Platelet Count 177, Mean Platelet Volume 11.2, Immature Granulocyte % (Auto) 1, Neutrophils (%) (Auto) 81, Lymphocytes (%) (Auto) 11, Monocytes (%) (Auto) 6, Eosinophils (%) (A uto) 2, Basophils (%) (Auto) 1, Neutrophils # (Auto) 10.5, Lymphocytes # (Auto) 1.4, Monocytes # (Auto) 0.7, Eosinophils # (Auto) 0.2, Basophils # (Auto) 0.1, Immature Granulocyte # (Auto) 0.1, Sodium Level 142, Potassium Level 3.6, Chloride Level 114, Carbon Dioxide Level 18, Anion Gap 10, Blood Urea Nitrogen 24, Creatinine 1.50, Estimat Glomerular Filtration Rate 35, BUN/Creatinine Ratio 16, Glucose Level 96, Calcium Level 8.2, Corrected Calcium 9.2, Total Bilirubin 0.7, Aspartate Amino Transf (AST/SGOT) 16, Alanine Aminotransferase (ALT/SGPT) 12, Alkaline Phosphatase 75, Total Protein 5.9, Albumin 2.8 03/23/23 04:38: White Blood Count 7.1, Red Blood Count 3.11, Hemoglobin 10.0, Hematocrit 31, Mean Corpuscular Volume 98, Mean Corpuscular Hemoglobin 32, Mean Corpuscular Hemoglobin Concent 33, Red Cell Distribution Width 14.6, Platelet Count 191, Mean Platelet Volume 11.0, Immature Granulocyte % (Auto) 1, Neutrophils (%) (Auto) 69, Lymphocytes (%) (Auto) 19, Monocytes (%) (Auto) 6, Eosinophils (%) (Auto) 5, Basophils (%) (Auto) 1, Neutrophils # (Auto) 4.9, Lymphocytes # (Auto) 1.3, Monocytes # (Auto) 0.4, Eosinophils # (Auto) 0.4, Basophils # (Auto) 0.1, Immature Granulocyte # (Auto) 0.0, Sodium Level 144, Potassium Level 3.5, Chloride Level 117, Carbon Dioxide Level 18, Anion Gap 9, Blood Urea Nitrogen 22, Creatinine 1.84, Estimat Glomerular Filtration Rate 27, BUN/Creatinine Ratio 12, Glucose Level 105, Calcium Level 8.0, Corrected Calcium 9.0, Total Bilirubin 0.5, Aspartate Amino Transf (AST/SGOT) 13, Alanine Aminotransferase (ALT/SGPT) 13, Alkaline Phosphatase 65, Total Protein 5.9, Albumin 2.8 03/23/23 18:59: Vancomycin Level Trough 9.9 03/24/23 05:11: White Blood Count 6.5, Red Blood Count 3.11, Hemoglobin 9.8, Hematocrit 31, Mean Corpuscular Volume 100, Mean Corpuscular Hemoglobin 32, Mean Corpuscular Hemoglobin Concent 32, Red Cell Distribution Width 14.7, Platelet Count 204, Mean Platelet Volume 10.7, Immature Granulocyte % (Auto) 1, Neutrophils (%) (Auto) 55, Lymphocytes (%) (Auto) 27, Monocytes (%) (Auto) 9, Eosinophils (%) (Auto) 7, Basophils (%) (Auto) 1, Neutrophils # (Auto) 3.5, Lymphocytes # (Auto) 1.8, Monocytes # (Auto) 0.6, Eosinophils # (Auto) 0.5, Basophils # (Auto) 0.1, Immature Granulocyte # (Auto) 0.1, Sodium Level 145, Potassium Level 4.0, Chloride Level 118, Carbon Dioxide Level 18, Anion Gap 9, Blood Urea Nitrogen 17, Creatinine 1.44, Estimat Glomerular Filtration Rate 37, BUN/Creatinine Ratio 12, Glucose Level 94, Calcium Level 8.0, Corrected Calcium 9.0, Total Bilirubin 0.5, Aspartate Amino Transf (AST/SGOT) 15, Alanine Aminotransferase (ALT/SGPT) 13, Alkaline Phosphatase 61, Total Protein 5.9, Albumin 2.8 Discharge Home Medications: Active Scripts Active Doxycycline Hyclate 100 Mg Tablet 100 Mg PO BID Cefdinir 300 Mg Capsule 300 Mg PO BID Reported Hydroxyzine HCl 10 Mg Tablet 10 Mg PO HS Dupixent Pen (Dupilumab) 300 Mg/2 Ml Pen.injctr 300 Mg INJ EVERY 2 WEEKS Sodium Bicarbonate 650 Mg Tablet 1,950 Mg PO BID TAKES 3 (650MG) TABS LAST FILLED 03-03-2022 #1000/167 DAY SUPPLY Docusate Sodium 100 Mg Capsule 100 Mg PO TID Vitamin D3 (Cholecalciferol (Vitamin D3)) 125 Mcg (5000 Unit) Capsule 125 Mcg PO DAILY Vision Vitamins (Beta-Carotene(A) W-C & E/Min) 1 Each Tablet 1 Each PO BID Rosuvastatin Calcium 20 Mg Tablet 20 Mg PO HS Furosemide 20 Mg Tablet 20 Mg PO DAILY PRN Synthroid (Levothyroxine Sodium) 125 Mcg Tablet 125 Mcg PO DAILY Aspirin EC (Aspirin) 81 Mg Tablet.dr 81 Mg PO HS Pantoprazole Sodium 40 Mg Tablet.dr 40 Mg PO HS Sucralfate 1 Gram Tablet 1 Gm PO DAILY Allopurinol 100 Mg Tablet 100 Mg PO HS Doxazosin Mesylate 2 Mg Tablet 2 Mg PO BID Metoclopramide HCl 10 Mg Tablet 10 Mg PO HS Losartan Potassium 100 Mg Tablet 100 Mg PO HS Spironolactone 25 Mg Tablet 25 Mg PO DAILY Amlodipine Besylate 10 Mg Tablet 10 Mg PO DAILY Metoprolol Succinate 50 Mg Tab.er.24h 50 Mg PO DAILY Instructions to patient/family Please see electronic discharge instructions given to patient. Clinical Quality Measures DVT/VTE Risk/Contraindication: Contraindications-Mechi: Other *list below* Other: cellulitis of legs and poss DVT INEZ PALMA DO Mar 24, 2023 11:53
[2023-03-24 12:50] VITALS: BP 158/78
== END 2023-03-24 12:51 | disposition home or self-care (01) | DRG 872 ==
LOC: EDUNIT# 14:26 → ER 14:28 → CSD 17:32 → 4TH 03-23 10:59
PROVIDERS: ADMIT Internal Medicine; ATTEND Internal Medicine
DX: A41.9 Sepsis, unspecified organism (principal); L03.116 Cellulitis of left lower limb; L40.9 Psoriasis, unspecified; I27.20 Pulmonary hypertension, unspecified; E87.6 Hypokalemia; I12.9 Hypertensive chronic kidney disease with stage 1 through stage 4 chronic kidney disease, or unspecified chronic kidney disease; N18.9 Chronic kidney disease, unspecified; G47.33 Obstructive sleep apnea (adult) (pediatric); Z66 Do not resuscitate; Z20.822 Contact with and (suspected) exposure to COVID-19; E78.00 Pure hypercholesterolemia, unspecified; I25.10 Atherosclerotic heart disease of native coronary artery without angina pectoris; K21.9 Gastro-esophageal reflux disease without esophagitis; E03.9 Hypothyroidism, unspecified; M19.90 Unspecified osteoarthritis, unspecified site; R01.1 Cardiac murmur, unspecified; Z96.651 Presence of right artificial knee joint; Z95.2 Presence of prosthetic heart valve; Z85.820 Personal history of malignant melanoma of skin; Z79.899 Other long term (current) drug therapy; Z79.82 Long term (current) use of aspirin
CPT/HCPCS: 36415; 80053; 80202; 81000; 83605; 83690; 85007; 85025; 85027; 86141; 87040; 87077; 87088; 87636; 93970; 94664; 94760